=== PATIENT | female | born 1960 | race Caucasian/White ===

== ENCOUNTER 2016-03-12 02:29 | Emergency (ER) | payer MEDICARE, MEDICAID ==
--- NOTE | 2016-03-12 02:53 | ERNOTE ---
Dyspnea - General Presenting Symptoms: shortness of breath Time Seen by Provider: 03/12/16 02:30 Source: patient Exam Limitations: intoxication - Immun/Allergies/Home Medications Immunizations: IMMUNIZATION HX Immunizations Up to Date Yes History of Influenza Vaccine No Hx Pneumococcal Vaccination Yes Allergies/Adverse Reactions: Allergies Iodinated Contrast Media - IV Dye Allergy (Intermediate, Verified 02/16/16 17:19 ) blood clots phenobarbital Allergy (Intermediate, Verified 02/16/16 17:19) seizure amoxicillin trihydrate [From Augmentin] Adverse Reaction (Mild, Verified 17:19) Vomiting egg Adverse Reaction (Mild, Verified 02/16/16 17:19) runny nose ibuprofen Adverse Reaction (Mild, Verified 02/16/16 17:19) Vomiting potassium clavulanate [From Augmentin] Adverse Reaction (Mild, Verified 17:19) Vomiting promethazine HCl [From Phenergan] Adverse Reaction (Mild, Verified 02/16/16 17: 19) Vomiting Home Medications: HOME MEDICATIONS ALPRAZolam [Xanax] 1 mg PO TID PRN 04/30/15 [Last Taken Unknown] Albuterol Sulfate [Proair Hfa] 2 puff IH QID PRN #1 inhaler 04/30/15 [Last Taken Unknown] Albuterol Sulfate/Ipratropium [Duoneb 2.5-0.5MG/3ML Soln] 3 ml IH QID PRN #60 nebu 04/30/15 [Last Taken Unknown] Cyproheptadine HCl [Periactin] 4 mg PO BID 02/16/16 [Last Taken Unknown] Hydrocodone/Acetaminophen [Lortab 5-325 mg Tablet] 1 - 2 each PO QID PRN #20 tablet 02/16/16 [Last Taken Unknown] Vitamin B Complex 1 each PO DAILY 02/16/16 [Last Taken Unknown] diphenhydrAMINE HCL [Benadryl] 25 mg PO TID PRN 02/16/16 [Last Taken Unknown] Benzonatate [Tessalon] 200 mg PO TID PRN 03/12/16 [Last Taken Unknown] Levetiracetam [Keppra] 1,000 mg PO BID 03/12/16 [Last Taken Unknown] Ondansetron [Zofran Odt] 4 mg PO Q6H PRN 03/12/16 [Last Taken Unknown] Prednisone [Deltasone] 20 mg PO DAILY 03/12/16 [Last Taken Unknown] - History of Present Illness Narrative: Patient complaints of shortness of breath for two days, has difficulty giving more of a story or focusing on questions as she is obviously drunk, admits to 4- 6 beer. She states that she has had this pain on and off for a while, has had multiple ER visits, has diagnosis of anxiety as well as COPD, recent chest CT did not show a PE or other acute disease. She has been using her inhaler at home with moderate relieve Date (Duration): 03/10/16 Initiating event: Denies: upper resp illness, out of meds Frequency of episodes: Reports: occassional episodes Associated Symptoms-Dyspnea: Reports: chest pain/discomfort - left chest on and off for a while, worse with breathing. Denies: fever/chills Prior Treatment: Reports: recently seen. Denies: currently on antibiotics Review of Systems - Review of Systems Constitutional: Present: recent illness. Absent: fever ENT: Absent: nose congestion Respiratory: Present: See HPI, shortness of breath, cough Cardiology: Present: See HPI, chest pain Gastrointestinal/Abdominal: Absent: nausea, vomiting, abdominal pain Neurological: Absent: headache - Patient's Past Medical History Patient History - Medical: Alcohol Abuse, Anxiety, GERD, Hypothyroidism, Osteoarthritis, Seizures Patient History - Cardiac/Respiratory: COPD Patient History - Cancer: No Hx of Cancer Patient History - Surgical Procedures: Cholecystectomy, , Other - Family History Mother Family History - Medical: Father Family History - Medical: Family History - Cardiac/Respiratory: Hypertension - Social History Living Situations: home Smoking Status: Current every day smoker Patient requests Smoking Cessation Consult: No Initiate information on Smoking Cessation: No Alcohol Use: heavy Drug Use: benzodiazepine Physical Exam - Physical Exam General Appearance: Present: wd/wn, anxious, other - intoxicated Eye Exam: Normal inspection: bilateral Ears, Nose, Throat: Present: normal pharynx Neck: Present: normal inspection. Absent: lymphadenopathy (R), lymphadenopathy (L) Respiratory: Present: no respiratory distress, decreased breath sounds, expiration (prolonged), wheezing - left lower chest Cardiovascular/Chest: Present: regular rate, rhythm, no murmur Gastrointestinal/Abdominal: Present: nontender, nondistended, soft Skin Exam: Present: normal color, warm/dry ED Progress - Results and Orders Patient's Lab Results:: I have reviewed the patient's lab results. - Vital Signs Patient's Vital Signs:: I have reviewed the patient's vital signs. Vital Signs: Vital Signs 03/12/16 03/12/16 02:31 02:41 Temperature 36.2 C L Pulse Rate 99 90 Respiratory 18 20 Rate Blood Pressure 143/98 107/68 O2 Sat by Pulse 93 93 Oximetry - EKG EKG: NSR, nonspecific ST T wave changes - inferior leads similar to 02/22/16 EKG read: Interp. by me - X-Ray X-Ray #1 X-Ray: chest - chronic no acute changes Interpretation: Interp. by me - Progress/Reassessment Chief Complaint: Dyspnea Progress Note-Subjective: 03/12/16 03:28 wheezing still present after neb treatment, patient is asking for food and drink alternating between breathing comfortably and getting agitated and breathing faster 03/12/16 03:53 discussed results with patient she was given prescription for prednisone on february 21 (#10) and only three tablets are mission, patient took one dose of her own prednisone (40mg) here, discussed cutting down on her smoking and drinking Departure Clinical Impression: COPD (chronic obstructive pulmonary disease) Qualifiers: COPD type: unspecified COPD Qualified Code(s): J44.9 - Chronic obstructive pulmonary disease, unspecified - Departure Disposition: Home self-care Condition: Fair Instructions: Chronic Obstructive Pulmonary Disease, [id number] Additional Instructions: take your prednisone as instructed ( you already took the dose for Thursday here in the ER) call Dr Otto to see if you can get an earlier follow up appointment work on cutting down on your smoking and alcohol intake Referrals: Cesia Otto DO [Primary Care Provider] -
[2016-03-12 02:57] LABS: Hematocrit 45.1 % (37.0-47.0); Hemoglobin 15.6 gm/dL (12.5-16.0); Mean Cell Volume 103.2 fl (78-100); Mean Corpuscular Hemoglobin 35.7 pg (27-31); Mean Corpuscular Hgb Conc 34.6 g/dl (32-36); Mean Platelet Volume 8.9 fl (6.0-9.5); Neutrophil # 4.6 K/mm3 (1.3-6.0); Neutrophil % 83.6 % (42-75.0); Platelet Count 237 K/mm3 (150-450); Red Blood Count 4.37 M/mm3 (4.2-5.4); Red Cell Distribution Width 12.8 % (11.5-14.0); White Blood Count 5.5 K/mm3 (4.0-10.5)
[2016-03-12] MEDS ORDERED: ALBUTEROL SULFATE 2.5 MG/0.5 ML VIAL.NEB IH ONE ×2 (03:00)
[2016-03-12 03:30] LABS: Albumin * 3.4 gm/dl (3.4-5.0); Anion Gap 14.5 mmol/L (6.8-13.8); BUN/Creatinine Ratio 11.3 (9.0-21.6); Blood Urea Nitrogen 7 mg/dL (3-23); Ca. Corrected For Albumin 8.9 mg/dL (8.4-10.2); Calcium * 8.7 mg/dL (7.9-10.9); Carbon Dioxide 21.5 mmol/L (24-32.6); Chloride 101 mmol/L (97-106); Glucose * 147 mg/dL (70-110); Sodium 133 mmol/L (132-142); Total Protein 7.6 gm/dL (6.2-8.2)
[2016-03-12 03:31] LABS: ALT 61 U/L (19-67); AST 96 U/L (0-48); Alkaline Phosphatase * 118 U/L (50-170); Bilirubin, Total 0.6 mg/dL (0.0-1.1); Troponin I Less than 0.017 ng/ml (0.00-0.10)
[2016-03-12 04:10] VITALS: BP 108/71
== END 2016-03-12 03:55 | disposition home or self-care (01) ==
LOC: ER 02:29
DX: J44.9 Chronic obstructive pulmonary disease, unspecified (principal); F41.9 Anxiety disorder, unspecified; R56.9 Unspecified convulsions
CPT/HCPCS: 36415; 71010; 80053; 84484; 85025; 93005; 99284; G0481

== ENCOUNTER 2016-05-11 00:09 | Emergency (ER) | payer MEDICARE, MEDICAID ==
[2016-05-11] MEDS ORDERED: LORazepam 2 MG/ML DISP.SYRIN IV ONE (00:31)
--- NOTE | 2016-05-11 00:39 | ERNOTE ---
Chest Pain/Cardiac HPI Date of Service: 05/11/16 Chief Complaint: Chest Pain Source: patient, EMR Immunizations: IMMUNIZATION HX Immunizations Up to Date Yes History of Influenza Vaccine No Hx Pneumococcal Vaccination Yes Allergies/Adverse Reactions: Allergies Iodinated Contrast Media - Oral and [Iodinated Contrast Media - IV Dye] Allergy (Intermediate, Verified 02/16/16 17:19) blood clots phenobarbital Allergy (Intermediate, Verified 02/16/16 17:19) seizure amoxicillin trihydrate [From Augmentin] Adverse Reaction (Mild, Verified 17:19) Vomiting egg Adverse Reaction (Mild, Verified 02/16/16 17:19) runny nose ibuprofen Adverse Reaction (Mild, Verified 02/16/16 17:19) Vomiting potassium clavulanate [From Augmentin] Adverse Reaction (Mild, Verified 17:19) Vomiting promethazine HCl [From Phenergan] Adverse Reaction (Mild, Verified 02/16/16 17: 19) Vomiting Home Medications: HOME MEDICATIONS ALPRAZolam [Xanax] 1 mg PO TID PRN 04/30/15 [Last Taken Unknown] Albuterol Sulfate [Proair Hfa] 2 puff IH QID PRN #1 inhaler 04/30/15 [Last Taken Unknown] Albuterol Sulfate/Ipratropium [Duoneb 2.5-0.5MG/3ML Soln] 3 ml IH QID PRN #60 nebu 04/30/15 [Last Taken Unknown] HYDROcodone/ACETAMINOPHEN [Lortab 5-325 mg Tablet] 1 - 2 each PO QID PRN #20 tablet 02/16/16 [Last Taken Unknown] Vitamin B Complex 1 each PO DAILY 02/16/16 [Last Taken Unknown] diphenhydrAMINE HCL [Benadryl] 25 mg PO TID PRN 02/16/16 [Last Taken Unknown] levETIRAcetam [Keppra] 1,000 mg PO BID 03/12/16 [Last Taken Unknown] Narrative: 56-year-old female known alcoholic with anxiety and panic disorder states that she felt short of breath and had some pain on the right side of her chest panicked and called for an ambulance. This is one of multiple admissions to our emergency department for the same reasons. Patient is intoxicated states she's had 4 or 5 beers. She is crying and yelling out and initially refusing all treatment. She did calm down enough for us to initiate treatment. We'll do the standard workup and give her some lorazepam to calm her down and likely be sending her back home soon Timing: intermittent Severity/Quality: moderate Location: other - right side Chest Pain Radiation: arms - right arm only Activities at Onset: emotional stress, other - drinking Modifying Factors - Improves: Present: nothing Modifying Factors - Worsens: Present: nothing Aspirin Treatment Today: unknown Associated Symptoms: Present: other - anxiety Prior Chest Pain/Cardiac Workup: Reports: prior chest pain, non-cardiac Prior Treatment: Reports: recently seen Review of Systems - Review of Systems Constitutional: Present: See HPI EYE: Present: no symptoms reported ENT: Present: no symptoms reported Respiratory: Present: no symptoms reported Cardiology: Present: no symptoms reported Gastrointestinal/Abdominal: Present: no symptoms reported Genitourinary: Present: no symptoms reported Musculoskeletal: Present: no symptoms reported Skin: Present: no symptoms reported Neurological: Present: no symptoms reported Endocrine: Present: no symptoms reported Hematologic/Lymphatic: Present: no symptoms reported Psych: Present: See HPI - Patient's Past Medical History Patient History - Medical: Alcohol Abuse, Anxiety, GERD, Hypothyroidism, Osteoarthritis, Seizures Patient History - Cardiac/Respiratory: Asthma, Hypertension Patient History - Cancer: No Hx of Cancer Patient History - Surgical Procedures: Cholecystectomy, , Other Patient History - Other: None - Family History Mother Family History - Medical: Father Family History - Medical: Family History - Cardiac/Respiratory: Hypertension - Social History Living Situations: alone Abuse History: No History of abuse Psych History: No pertinent hx Smoking Status: Current every day smoker Alcohol Use: heavy Drug Use: benzodiazepine - Immunizations Immunizations Up to Date: Yes Hx Pneumococcal Vaccination: Yes History of Influenza Vaccine: No Physical Exam - Physical Exam General Appearance: Present: moderate distress, anxious, crying, other - intoxicated Eye Exam: Normal inspection: bilateral, PERRL: bilateral Ears, Nose, Throat: Present: normal ENT inspection, H, normal pharynx Respiratory: Present: no respiratory distress, normal breath sounds, no accessory muscle use, chest nontender, lungs clear Cardiovascular/Chest: Present: regular rate, rhythm, no murmur, normal peripheral pulses Gastrointestinal/Abdominal: Present: normal bowel sounds, nontender, nondistended, soft, no organomegaly Rectal Exam: Present: deferred Back Exam: Present: normal inspection, normal range of motion, no CVA tenderness , no vertebral tenderness Extremity Exam: Present: normal inspection, non-tender, no edema, normal range of motion Neurological Exam: Present: alert, oriented, other - anxious, yelling out, crying, initially uncooperative Skin Exam: Present: normal color, warm/dry Lymphatic Exam: Present: no adenopathy ED Progress - Results and Orders Patient's Lab Results:: I have reviewed the patient's lab results. - Vital Signs Patient's Vital Signs:: I have reviewed the patient's vital signs. Vital Signs: Vital Signs 05/11/16 00:19 Temperature 36.7 C Pulse Rate 91 Respiratory 20 Rate Blood Pressure 131/88 O2 Sat by Pulse 92 Oximetry - EKG EKG: NSR, no ST T wave changes - Progress/Reassessment Chief Complaint: Chest Pain Departure - Departure Clinical Impression: Panic attack, Anxiety, Alcoholism COPD (chronic obstructive pulmonary disease) Qualifiers: COPD type: unspecified COPD Qualified Code(s): J44.9 - Chronic obstructive pulmonary disease, unspecified Disposition: Home self-care Condition: Fair Instructions: Panic Attacks, [id number] Additional Instructions: Take your Regular medications and try to stop drinking and smoking
[2016-05-11 00:48] LABS: Hematocrit 45.2 % (37.0-47.0); Hemoglobin 15.5 gm/dL (12.5-16.0); Mean Cell Volume 103.4 fl (78-100); Mean Corpuscular Hemoglobin 35.5 pg (27-31); Mean Corpuscular Hgb Conc 34.3 g/dl (32-36); Neutrophil # 1.6 K/mm3 (1.3-6.0); Neutrophil % 23.5 % (42-75.0); Platelet Count 212 K/mm3 (150-450); Red Blood Count 4.37 M/mm3 (4.2-5.4); White Blood Count 6.8 K/mm3 (4.0-10.5)
[2016-05-11 01:03] LABS: ALT 82 U/L (19-67); AST 116 U/L (0-48); Albumin * 3.2 gm/dl (3.4-5.0); Alkaline Phosphatase * 112 U/L (50-170); Anion Gap 16.7 mmol/L (6.8-13.8); BUN/Creatinine Ratio 6.8 (9.0-21.6); Bilirubin, Total 0.4 mg/dL (0.0-1.1); Blood Urea Nitrogen 4 mg/dL (3-23); Ca. Corrected For Albumin 8.4 mg/dL (8.4-10.2); Calcium * 8.1 mg/dL (7.9-10.9); Carbon Dioxide 23.7 mmol/L (24-32.6); Chloride 103 mmol/L (97-106); Glucose * 110 mg/dL (70-110); Potassium 3.4 mmol/L (3.4-4.6); Sodium 140 mmol/L (132-142); Total Protein 7.1 gm/dL (6.2-8.2); Troponin I Less than 0.017 ng/ml (0.00-0.10)
[2016-05-11] MEDS ORDERED: LORazepam 2 MG/ML DISP.SYRIN ONE (01:05)
[2016-05-11 01:16] VITALS: BP 103/73
== END 2016-05-11 01:50 | disposition home or self-care (01) ==
LOC: ER 00:09
DX: J44.9 Chronic obstructive pulmonary disease, unspecified (principal); F41.0 Panic disorder [episodic paroxysmal anxiety]; F41.9 Anxiety disorder, unspecified; F17.210 Nicotine dependence, cigarettes, uncomplicated; F10.20 Alcohol dependence, uncomplicated

== ENCOUNTER 2016-05-25 12:36 | Emergency (ER) | payer MEDICARE, MEDICAID ==
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
[2016-05-25 13:31] VITALS: BP 148/102
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
== END 2016-05-25 14:17 | disposition home or self-care (01) ==
LOC: ER 12:36
DX: R07.89 Other chest pain (principal); G40.409 Other generalized epilepsy and epileptic syndromes, not intractable, without status epilepticus; J45.909 Unspecified asthma, uncomplicated; F41.9 Anxiety disorder, unspecified

== ENCOUNTER 2016-06-04 01:17 | Emergency (ER) | payer MEDICARE, MEDICAID ==
[2016-06-04 01:32] VITALS: BP 138/88
[2016-06-04] MEDS ORDERED: ACETAMINOPHEN 500 MG TABLET PO ONE (01:42)
[2016-06-04] MEDS ORDERED: KETOROLAC TROMETHAMINE 30 MG/ML VIAL IM ONE (01:42)
[2016-06-04] MEDS ORDERED: KETOROLAC TROMETHAMINE 30 MG/ML VIAL ONE (01:47)
--- NOTE | 2016-06-04 01:51 | ERNOTE ---
Back Pain ER HPI Date of Service: 06/04/16 Presenting Symptoms: injury/pain to back Source: patient Immunizations: IMMUNIZATION HX Immunizations Up to Date Yes History of Influenza Vaccine No Hx Pneumococcal Vaccination Yes Allergies/Adverse Reactions: Allergies Iodinated Contrast Media - Oral and [Iodinated Contrast Media - IV Dye] Allergy (Intermediate, Verified 05/25/16 13:01) blood clots phenobarbital Allergy (Intermediate, Verified 05/25/16 13:01) seizure amoxicillin trihydrate [From Augmentin] Adverse Reaction (Mild, Verified 13:01) Vomiting egg Adverse Reaction (Mild, Verified 05/25/16 13:01) runny nose ibuprofen Adverse Reaction (Mild, Verified 05/25/16 13:01) Vomiting potassium clavulanate [From Augmentin] Adverse Reaction (Mild, Verified 13:01) Vomiting promethazine HCl [From Phenergan] Adverse Reaction (Mild, Verified 05/25/16 13: 01) Vomiting Home Medications: HOME MEDICATIONS ALPRAZolam [Xanax] 1 mg PO TID PRN 04/30/15 [Last Taken Unknown] Albuterol Sulfate [Proair Hfa] 2 puff IH QID PRN #1 inhaler 04/30/15 [Last Taken Unknown] Albuterol Sulfate/Ipratropium [Duoneb 2.5-0.5MG/3ML Soln] 3 ml IH QID PRN #60 nebu 04/30/15 [Last Taken Unknown] diphenhydrAMINE HCL [Benadryl] 25 mg PO TID PRN 02/16/16 [Last Taken Unknown] levETIRAcetam [Keppra] 1,000 mg PO BID 03/12/16 [Last Taken Unknown] Cyclobenzaprine HCl [Flexeril] 10 mg PO TID PRN #30 tab 05/25/16 [Last Taken Unknown] traMADol HCL [Ultram] 50 mg PO QID PRN #20 tablet 05/25/16 [Last Taken Unknown] Gabapentin 300 mg PO TID PRN #21 capsule 06/04/16 [Last Taken Unknown] Lidocaine [Lidoderm 5%] 1 patch TP DAILY PRN #20 patch 06/04/16 [Last Taken Unknown] Narrative: 56 year old that had an acute onset of lower thoracic pain three days ago. Movement increases the pain, lying on her side decreases the pain. She becomes short of breath when the pain spikes after movement. However she is not currently short of breath. Denies any motor or sensory deficits in the lower extremities. Denies any urinary retention. One week ago she fell after drinking alcohol. Ultram and Tylenol are not decreasing the pain. Timing: Reports: intermittent Quality/Severity: Reports: severe Location of pain: Reports: lower back Activities at Onset: Reports: none Recent Injury?: Reports: yes Possible Precipitating Factor: Reports: fall/near fall Modifying Factors - (Improves): Reports: other - being still Modifying Factors - (Worsens): Reports: movement to right, movement to left, movement flexion Associated Symptoms: Reports: none Prior Treament: Reports: recently seen Review of Systems - Review of Systems Constitutional: Present: no symptoms reported EYE: Present: no symptoms reported ENT: Present: no symptoms reported Respiratory: Present: no symptoms reported Cardiology: Present: no symptoms reported Gastrointestinal/Abdominal: Present: no symptoms reported Genitourinary: Present: no symptoms reported Musculoskeletal: Present: See HPI Skin: Present: no symptoms reported Neurological: Present: no symptoms reported Endocrine: Present: no symptoms reported Hematologic/Lymphatic: Present: no symptoms reported Psych: Present: no symptoms reported - Patient's Past Medical History Patient History - Medical: Alcohol Abuse, Anxiety, GERD, Hypothyroidism, Osteoarthritis, Seizures Patient History - Cardiac/Respiratory: Asthma, Hypertension Patient History - Cancer: No Hx of Cancer Patient History - Surgical Procedures: Cholecystectomy, , Other Patient History - Other: None - Family History Mother Family History - Medical: Father Family History - Medical: Family History - Cardiac/Respiratory: Hypertension - Social History Living Situations: significant other Abuse History: No History of abuse Psych History: No pertinent hx Smoking Status: Current every day smoker Have you smoked in the past 12 months: Yes Do you dip or chew tobacco: No Alcohol Use: heavy Drug Use: benzodiazepine - Immunizations Immunizations Up to Date: Yes Hx Pneumococcal Vaccination: Yes History of Influenza Vaccine: No Physical Exam - Physical Exam General Appearance: Present: no apparent distress Eye Exam: Normal inspection: bilateral, PERRL: bilateral Ears, Nose, Throat: Present: normal ENT inspection Neck: Present: normal inspection Respiratory: Present: no respiratory distress Cardiovascular/Chest: Present: regular rate, rhythm, other - tenderness at the 12 th rib bilaterally. Gastrointestinal/Abdominal: Present: nondistended Back Exam: Present: normal inspection, no vertebral tenderness Extremity Exam: Present: normal inspection Skin Exam: Present: normal color ED Progress - Vital Signs Patient's Vital Signs:: I have reviewed the patient's vital signs. Vital Signs: Vital Signs 06/04/16 01:17 Temperature 36.7 C Pulse Rate 86 Respiratory 16 Rate Blood Pressure 138/88 O2 Sat by Pulse 98 Oximetry - X-Ray X-Ray #1 X-Ray: chest Interpretation: Interp. by me X-ray Comments: No rib fractures, no pneumothorax. - Progress/Reassessment Chief Complaint: Back Pain Progress:: Improved Departure Clinical Impression: Rib pain - Departure Disposition: Home self-care Condition: Fair Instructions: Rib Fracture, [id number], Rib Belt Print Language: Kiswahili Referrals: Cesia Otto DO [Primary Care Provider] - Prescriptions: Gabapentin 300 mg PO TID PRN #21 capsule PRN Reason: Pain Lidocaine [Lidoderm 5%] 1 patch TP DAILY PRN #20 patch PRN Reason: Pain
--- OUTSIDE RECORDS SUMMARY | 2016-06-04 02:10 | XMS REPORT | Continuity of Care Document ---
:1960 Author Organization [facility] ([facility]) Address [place] [address] Phone [phone] Care Team Providers Name Role Phone Raul Gallegos Primary Care Provider [phone] Source Comments This disclosure is being made pursuant to the Care Everywhere program, applicable federal and state laws, and may not contain all informaitonavailable regarding this patient.[facility] ([facility]) Active Allergies and Adverse Reactions Allergen Noted [...] 09/13/2014 Woman with possible epilepsy based on [place] EEG. She has a history of falls that were due to "blackouts" over the years with injury but was never given a diagnosis of epilepsy until 2013. She does well on keppra and avoiding marijuana Plan 1. Reviewed [place] Law that she needs to go 6 months without a seizure or alteration of awareness 2. I have sent [facility] EEG on disc, MRI on disc and ED notes 3. Life style: Get enough sleep, limit alcohol use, avoid marijuana If you have questions please call us: Department of Neurology Epilepsy Program(8:00 a.m. to 5:00 p.m. Thursday-Thursday) at [phone] After 5:00 p.m., weekends or holidays, call [phone] and ask for the Neurologist manager of environmental services. 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
[2016-06-04 02:52] LABS: Urine Bilirubin Negative (NEGATIVE); Urine Blood Negative /ul (NEGATIVE); Urine Ketone Negative (NEGATIVE); Urine Nitrite Negative (NEGATIVE); Urine Protein Negative (NEGATIVE); Urine Specific Gravity <=1.005 SP.GR. (1.005-1.010); Urine Urobilinogen Normal (NORMAL); Urine pH 5.5 pH (5.0-7.0)
[2016-06-04 02:56] LABS: Urine Amorphous Sediment Few - 1+ (NONE-FEW); Urine Appearance Slightly Cloudy; Urine Bacteria None Seen; Urine Color Pale Yellow; Urine Mucus Few - 1+; Urine RBC 0-5 /hpf (0-5); Urine WBC 0-5 /hpf (0-5)
[2016-06-04] MEDS ORDERED: LIDOCAINE 1 PATCH ADH..PATCH TP ONE ×2 (03:18→03:30)
== END 2016-06-04 03:38 | disposition home or self-care (01) ==
LOC: ER 01:17
DX: R07.81 Pleurodynia (principal); F17.210 Nicotine dependence, cigarettes, uncomplicated

== ENCOUNTER 2016-06-06 03:41 | Emergency (ER) | payer MEDICARE, MEDICAID ==
--- OUTSIDE RECORDS SUMMARY | 2016-06-06 04:15 | XMS REPORT | Continuity of Care Document ---
:1960 Author Organization [facility] ([facility]) [place] [address] Phone [phone] Care Team Providers Name Role Phone Raul Gallegos Primary Care Provider [phone] Source Comments This disclosure is being made pursuant to the Care Everywhere program, applicable federal and state laws, and may not contain all informaitonavailable regarding this patient.[facility] ([facility]) Active Allergies and Adverse Reactions Allergen [...] 09/13/2014 Woman with possible epilepsy based on [place] EEG. She has a history of falls that were due to "blackouts" over the years with injury but was never given a diagnosis of epilepsy until 2013. She does well on keppra and avoiding marijuana Plan 1. Reviewed [place] Law that she needs to go 6 months without a seizure or alteration of awareness 2. I have sent [facility] EEG on disc, MRI on disc and ED notes 3. Life style: Get enough sleep, limit alcohol use, avoid marijuana If you have questions please call us: Department of Neurology Epilepsy Program(8:00 a.m. to 5:00 p.m. Thursday-Thursday) at [phone] After 5:00 p.m., weekends or holidays, call [phone] and ask for the Neurologist press set up person. 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
--- NOTE | 2016-06-06 04:20 | ERNOTE ---
Back Pain ER HPI Presenting Symptoms: injury/pain to back Time Seen by Provider: 06/06/16 03:56 Source: patient Exam Limitations: no limitations Immunizations: IMMUNIZATION HX Immunizations Up to Date Yes History of Influenza Vaccine No Hx Pneumococcal Vaccination Yes Allergies/Adverse Reactions: Allergies Iodinated Contrast Media - Oral and [Iodinated Contrast Media - IV Dye] Allergy (Intermediate, Verified 05/25/16 13:01) blood clots phenobarbital Allergy (Intermediate, Verified 05/25/16 13:01) seizure amoxicillin trihydrate [From Augmentin] Adverse Reaction (Mild, Verified 13:01) Vomiting egg Adverse Reaction (Mild, Verified 05/25/16 13:01) runny nose ibuprofen Adverse Reaction (Mild, Verified 05/25/16 13:01) Vomiting potassium clavulanate [From Augmentin] Adverse Reaction (Mild, Verified 13:01) Vomiting promethazine HCl [From Phenergan] Adverse Reaction (Mild, Verified 05/25/16 13: 01) Vomiting Home Medications: HOME MEDICATIONS ALPRAZolam [Xanax] 1 mg PO TID PRN 04/30/15 [Last Taken Unknown] Albuterol Sulfate [Proair Hfa] 2 puff IH QID PRN #1 inhaler 04/30/15 [Last Taken Unknown] Albuterol Sulfate/Ipratropium [Duoneb 2.5-0.5MG/3ML Soln] 3 ml IH QID PRN #60 nebu 04/30/15 [Last Taken Unknown] diphenhydrAMINE HCL [Benadryl] 25 mg PO TID PRN 02/16/16 [Last Taken Unknown] levETIRAcetam [Keppra] 1,000 mg PO BID 03/12/16 [Last Taken Unknown] Cyclobenzaprine HCl [Flexeril] 10 mg PO TID PRN #30 tab 05/25/16 [Last Taken Unknown] Gabapentin 300 mg PO TID PRN #21 capsule 06/04/16 [Last Taken Unknown] Lidocaine [Lidoderm 5%] 1 patch TP DAILY PRN #20 patch 06/04/16 [Last Taken Unknown] Meloxicam [Mobic] 7.5 mg PO DAILY #14 tab 06/06/16 [Last Taken Unknown] tiZANidine HCL [Zanaflex] 4 mg PO QID PRN #30 capsule 06/06/16 [Last Taken Unknown] Narrative: Pt fell and hurt her ribs 2 weeks ago. She was having more pain and was seen in this ED 2 days ago. She was given gabapentin and lidocaine patches. She states the medications aren't working and her back is hurting more. Timing: Reports: getting worse Quality/Severity: Reports: moderate Location of pain: Reports: mid back Recent Injury?: Reports: yes Possible Precipitating Factor: Reports: fall/near fall Modifying Factors - (Improves): Reports: nothing Modifying Factors - (Worsens): Reports: supine position Prior Treament: Reports: recently seen, treated by physician, similar symptoms before Review of Systems - Review of Systems Constitutional: Present: no symptoms reported EYE: Present: no symptoms reported ENT: Present: no symptoms reported Respiratory: Present: shortness of breath - when the pain increases Cardiology: Present: no symptoms reported Gastrointestinal/Abdominal: Present: no symptoms reported Genitourinary: Present: no symptoms reported Musculoskeletal: Present: See HPI, back pain, muscle pain Skin: Present: no symptoms reported Neurological: Absent: numbness, tingling Endocrine: Present: no symptoms reported Hematologic/Lymphatic: Present: no symptoms reported Psych: Present: no symptoms reported - Patient's Past Medical History Patient History - Medical: Alcohol Abuse, Anxiety, GERD, Hypothyroidism, Osteoarthritis, Seizures Patient History - Cardiac/Respiratory: Asthma, Hypertension Patient History - Cancer: No Hx of Cancer Patient History - Surgical Procedures: Cholecystectomy, , Other Patient History - Other: None - Family History Mother Family History - Medical: Father Family History - Medical: Family History - Cardiac/Respiratory: Hypertension - Social History Living Situations: significant other Abuse History: No History of abuse Psych History: No pertinent hx Smoking Status: Current every day smoker Patient requests Smoking Cessation Consult: No Initiate information on Smoking Cessation: No Alcohol Use: heavy Drug Use: benzodiazepine - Immunizations Immunizations Up to Date: Yes Hx Pneumococcal Vaccination: Yes History of Influenza Vaccine: No Physical Exam - Physical Exam General Appearance: Present: wd/wn, alert, mild distress Eye Exam: Normal inspection: bilateral Neck: Present: normal inspection, nontender, supple, full range of motion Respiratory: Present: no respiratory distress Back Exam: Present: no CVA tenderness, no vertebral tenderness, muscle spasm - bilateral quadratus lumborum Extremity Exam: Present: normal inspection, normal range of motion Neurological Exam: Present: alert, oriented Skin Exam: Present: normal color, warm/dry Lymphatic Exam: Present: no adenopathy ED Progress - Vital Signs Vital Signs: Vital Signs 06/06/16 03:45 Temperature 36.4 C L Pulse Rate 92 Respiratory 18 Rate Blood Pressure 137/98 O2 Sat by Pulse 91 Oximetry - Progress/Reassessment Chief Complaint: Back Pain Departure Clinical Impression: Rib pain, Muscle spasm of back - Departure Disposition: Home self-care Condition: Good Instructions: Muscle Cramps and Spasms, Rib Contusion Additional Instructions: Stop the tramadol. Use warm packs to painful areas 15 minutes 3-4 times a day. fill the prescription for the patches. May use one patch cut in half or two patches if needed to cover the painful area. wear for 12 hours a day and remove apply new patches the next day. See your regular doctor if not improving Referrals: Cesia Otto DO [Primary Care Provider] - Prescriptions: Meloxicam [Mobic] 7.5 mg PO DAILY #14 tab tiZANidine HCL [Zanaflex] 4 mg PO QID PRN #30 capsule PRN Reason: Muscle Pain
[2016-06-06] MEDS ORDERED: ORPHENADRINE CITRATE 30 MG/ML VIAL IM ONE (04:39)
[2016-06-06] MEDS ORDERED: KETOROLAC TROMETHAMINE 60 MG/2 ML VIAL IM ONE (04:43)
[2016-06-06] MEDS ORDERED: ORPHENADRINE CITRATE 30 MG/ML VIAL ONE (04:43)
[2016-06-06] MEDS: KETOROLAC TROMETHAMINE 60 MG/2 ML VIAL IM ONE ×2 (04:44→04:45)
[2016-06-06] MEDS ORDERED: LIDOCAINE 1 PATCH ADH..PATCH TP ONE (05:00)
[2016-06-06 06:02] VITALS: BP 118/84
== END 2016-06-06 05:15 | disposition home or self-care (01) ==
LOC: ER 03:41
DX: R07.81 Pleurodynia (principal); M62.830 Muscle spasm of back; F17.200 Nicotine dependence, unspecified, uncomplicated; W19.XXXA Unspecified fall, initial encounter

== ENCOUNTER 2016-06-10 00:21 | Emergency (ER) | payer MEDICARE, MEDICAID ==
[2016-06-10 00:31] VITALS: BP 143/99
[2016-06-10] MEDS ORDERED: ALBUTEROL SULFATE/IPRATROPIUM 3 ML NEBU IH ONE ×2 (00:39)
[2016-06-10 01:05] LABS: Hematocrit 50.2 % (37.0-47.0); Hemoglobin 17.3 gm/dL (12.5-16.0); Mean Cell Volume 103.7 fl (78-100); Mean Corpuscular Hemoglobin 35.7 pg (27-31); Mean Corpuscular Hgb Conc 34.5 g/dl (32-36); Mean Platelet Volume 9.1 fl (6.0-9.5); Neutrophil # 4.4 K/mm3 (1.3-6.0); Neutrophil % 44.9 % (42-75.0); Platelet Count 313 K/mm3 (150-450); Red Blood Count 4.84 M/mm3 (4.2-5.4); Red Cell Distribution Width 12.6 % (11.5-14.0); White Blood Count 9.8 K/mm3 (4.0-10.5)
[2016-06-10 01:25] LABS: ALT 59 U/L (19-67); AST 78 U/L (0-48); Albumin * 3.7 gm/dl (3.4-5.0); Alkaline Phosphatase * 156 U/L (50-170); Anion Gap 20.1 mmol/L (6.8-13.8); BUN/Creatinine Ratio 7.8 (9.0-21.6); Bilirubin, Total 0.4 mg/dL (0.0-1.1); Blood Urea Nitrogen 5 mg/dL (3-23); Ca. Corrected For Albumin 9.1 mg/dL (8.4-10.2); Calcium * 9.2 mg/dL (7.9-10.9); Carbon Dioxide 22.8 mmol/L (24-32.6); Chloride 104 mmol/L (97-106); Glucose * 98 mg/dL (70-110); Potassium 3.9 mmol/L (3.4-4.6); Sodium 143 mmol/L (132-142); Troponin I Less than 0.017 ng/ml (0.00-0.10)
--- OUTSIDE RECORDS SUMMARY | 2016-06-10 01:43 | XMS REPORT | Continuity of Care Document ---
:1960 Author Organization [facility] ([facility]) Address [place] [address] Phone [phone] Care Team Providers Name Role Phone Raul Gallegos Primary Care Provider [phone] Source Comments This disclosure is being made pursuant to the Care Everywhere program, applicable federal and state laws, and may not contain all informaitonavailable regarding this patient.[facility] ([facility]) Active Allergies and Adverse Reactions Allergen Noted [...] 09/13/2014 Woman with possible epilepsy based on [place] EEG. She has a history of falls that were due to "blackouts" over the years with injury but was never given a diagnosis of epilepsy until 2013. She does well on keppra and avoiding marijuana Plan 1. Reviewed [place] Law that she needs to go 6 months without a seizure or alteration of awareness 2. I have sent [facility] EEG on disc, MRI on disc and ED notes 3. Life style: Get enough sleep, limit alcohol use, avoid marijuana If you have questions please call us: Department of Neurology Epilepsy Program(8:00 a.m. to 5:00 p.m. Thursday-Thursday) at [phone] After 5:00 p.m., weekends or holidays, call [phone] and ask for the Neurologist aboriginal education teacher. You may also use the 24 hour [...] 37.7 C (99.9 F) 03/03/2013 12:36 PM PARA OPERATOR Respiratory Rate 16 02/14/2013 5:35 PM PARA OPERATOR Height 1.6 m (5' 3") 09/13/2014 12:58 PM CDT Weight 73.483 kg (162 lb) 09/13/2014 12:58 PM CDT Body Mass Index 28.7 09/13/2014 12:58 PM CDT Oxygen Saturation 94% 02/14/2013 4:00 PM PARA OPERATOR Plan of Care Patient Goal Type Goal [...]
[2016-06-10] MEDS ORDERED: ORPHENADRINE CITRATE 30 MG/ML VIAL IM ONE (01:45)
--- NOTE | 2016-06-10 01:50 | ERNOTE ---
Dyspnea - General Presenting Symptoms: shortness of breath Time Seen by Provider: 06/10/16 01:26 Source: patient Exam Limitations: no limitations - Immun/Allergies/Home Medications Immunizations: IMMUNIZATION HX Immunizations Up to Date Yes History of Influenza Vaccine No Hx Pneumococcal Vaccination No Allergies/Adverse Reactions: Allergies Iodinated Contrast Media - Oral and [Iodinated Contrast Media - IV Dye] Allergy (Intermediate, Verified 06/10/16 00:31) blood clots phenobarbital Allergy (Intermediate, Verified 06/10/16 00:31) seizure amoxicillin trihydrate [From Augmentin] Adverse Reaction (Mild, Verified 00:31) Vomiting egg Adverse Reaction (Mild, Verified 06/10/16 00:31) runny nose ibuprofen Adverse Reaction (Mild, Verified 06/10/16 00:31) Vomiting potassium clavulanate [From Augmentin] Adverse Reaction (Mild, Verified 00:31) Vomiting promethazine HCl [From Phenergan] Adverse Reaction (Mild, Verified 06/10/16 00: 31) Vomiting Home Medications: HOME MEDICATIONS ALPRAZolam [Xanax] 1 mg PO TID PRN 04/30/15 [Last Taken Unknown] Albuterol Sulfate [Proair Hfa] 2 puff IH QID PRN #1 inhaler 04/30/15 [Last Taken Unknown] Albuterol Sulfate/Ipratropium [Duoneb 2.5-0.5MG/3ML Soln] 3 ml IH QID PRN #60 nebu 04/30/15 [Last Taken Unknown] diphenhydrAMINE HCL [Benadryl] 25 mg PO TID PRN 02/16/16 [Last Taken Unknown] levETIRAcetam [Keppra] 1,000 mg PO BID 03/12/16 [Last Taken Unknown] Gabapentin 300 mg PO TID PRN #21 capsule 06/04/16 [Last Taken Unknown] Lidocaine [Lidoderm 5%] 1 patch TP DAILY PRN #20 patch 06/04/16 [Last Taken Unknown] tiZANidine HCL [Zanaflex] 4 mg PO QID PRN #30 capsule 06/06/16 [Last Taken Unknown] Orphenadrine Citrate [Norflex] 100 mg PO Q12H #30 tablet.sa 06/10/16 [Last Taken Unknown] - History of Present Illness Narrative: Despite being short of breath pt. complains that her back pain is more of a concern to her as soon as I walk in the door to the exam room. Pt. had a fall a week ago. She has been seen in this ED twice previous to today. I saw her on Thursday night. She was given flexeril and tramadol on the first visit. On the second visit she was directed to stop those and she was given tizanadine. She did not take those today because she has been drinking heavily today. She states that she had taken a muscle relaxer previously that was BID and worked well for her. Severity: moderate Treatment DIE REPAIR: none Initiating event: Reports: other Frequency of episodes: Reports: occassional episodes Modifying Factors - (Improves): Reports: oxygen Modifying Factors (Worsens): Reports: activity, coughing Review of Systems - Review of Systems Constitutional: Present: no symptoms reported EYE: Present: no symptoms reported ENT: Present: no symptoms reported Respiratory: Present: shortness of breath, cough Cardiology: Present: no symptoms reported Gastrointestinal/Abdominal: Present: no symptoms reported Genitourinary: Present: no symptoms reported Musculoskeletal: Present: See HPI Skin: Present: no symptoms reported Neurological: Present: no symptoms reported Endocrine: Present: no symptoms reported Hematologic/Lymphatic: Present: no symptoms reported Psych: Present: no symptoms reported - Patient's Past Medical History Patient History - Medical: Alcohol Abuse, Anxiety, GERD, Hypothyroidism, Osteoarthritis, Seizures Patient History - Cardiac/Respiratory: Asthma, Hypertension Patient History - Cancer: No Hx of Cancer Patient History - Surgical Procedures: Cholecystectomy, , Other Patient History - Other: None - Family History Mother Family History - Medical: Father Family History - Medical: Family History - Cardiac/Respiratory: Hypertension - Social History Living Situations: home Abuse History: No History of abuse Psych History: No pertinent hx Smoking Status: Current every day smoker Alcohol Use: heavy Drug Use: none - Immunizations Immunizations Up to Date: Yes Hx Pneumococcal Vaccination: No History of Influenza Vaccine: No Physical Exam - Physical Exam General Appearance: Present: wd/wn, alert, mild distress Eye Exam: Normal inspection: bilateral Ears, Nose, Throat: Present: normal ENT inspection Neck: Present: normal inspection, nontender Respiratory: Present: no respiratory distress, lungs clear, decreased breath sounds Cardiovascular/Chest: Present: regular rate, rhythm, no murmur Back Exam: Present: CVA tenderness (R), CVA tenderness (L), muscle spasm Extremity Exam: Present: normal inspection, normal range of motion, no edema Neurological Exam: Present: alert, oriented Skin Exam: Present: normal color, warm/dry Lymphatic Exam: Present: no adenopathy ED Progress - Results and Orders Patient's Lab Results:: I have reviewed the patient's lab results. Results and Orders: Laboratory Tests 06/10/16 06/10/16 00:39 00:39 WBC 9.8 Hgb 17.3 H Hct 50.2 H Plt Count 313 Sodium 143 H Potassium 3.9 Chloride 104 Carbon Dioxide 22.8 L Anion Gap 20.1 H BUN 5 Creatinine 0.64 Est GFR (Non-Af Amer) 102 BUN/Creatinine Ratio 7.8 L Random Glucose 98 Calcium 9.2 Total Bilirubin 0.4 AST 78 H ALT 59 Alkaline Phosphatase 156 Troponin I Less than 0.017 Total Protein 8.0 Albumin 3.7 - Vital Signs Patient's Vital Signs:: I have reviewed the patient's vital signs. Vital Signs: Vital Signs 06/10/16 06/10/16 00:27 00:44 Temperature 36.8 C Pulse Rate 100 98 Respiratory 28 H 18 Rate Blood Pressure 143/99 O2 Sat by Pulse 85 L 90 Oximetry - EKG EKG: NSR EKG read: Interp. by me - Progress/Reassessment Chief Complaint: Dyspnea Progress Note-Subjective: 06/10/16 01:48 discussed IM norflex. Pt agreed and promised no more ETOH tonight if she was to get the injection. I encouraged her to cut down significantly on the ETOH intake if she is going to take oral norflex. She states she will drink minimally and that she see's her physician on Thursday Departure Clinical Impression: Alcoholism, COPD with exacerbation, Muscle spasm of back Back pain, thoracic Qualifiers: Chronicity: unspecified Back pain laterality: bilateral Qualified Code(s): M54.6 - Pain in thoracic spine - Departure Disposition: Home Follow Up Needed Condition: Good Instructions: Alcohol Use Disorder, Muscle Cramps and Spasms, [id number], Heat Therapy Additional Instructions: Reduce you alcohol intake while taking the muscle relaxer. See your doctor as scheduled Referrals: Cesia Otto DO [Primary Care Provider] - Prescriptions: Orphenadrine Citrate [Norflex] 100 mg PO Q12H #30 tablet.sa
[2016-06-10] MEDS ORDERED: ORPHENADRINE CITRATE 30 MG/ML VIAL ONE (01:55)
== END 2016-06-10 02:40 | disposition home or self-care (01) ==
LOC: ER 00:21
DX: F10.20 Alcohol dependence, uncomplicated (principal); J44.1 Chronic obstructive pulmonary disease with (acute) exacerbation; Z72.0 Tobacco use; M62.830 Muscle spasm of back; M54.6 Pain in thoracic spine; G40.409 Other generalized epilepsy and epileptic syndromes, not intractable, without status epilepticus; F41.8 Other specified anxiety disorders

== ENCOUNTER 2016-07-01 01:37 | Emergency (ER) | payer MEDICARE, MEDICAID ==
--- NOTE | 2016-07-01 02:10 | ERNOTE ---
ER Female HPI Stated Complaint: BLEEDING Time Seen by Provider: 07/01/16 02:06 Source: patient Exam Limitations: no limitations Immunizations: IMMUNIZATION HX Immunizations Up to Date Yes History of Influenza Vaccine No Hx Pneumococcal Vaccination No Allergies/Adverse Reactions: Allergies Iodinated Contrast Media - Oral and [Iodinated Contrast Media - IV Dye] Allergy (Intermediate, Verified 06/10/16 00:31) blood clots phenobarbital Allergy (Intermediate, Verified 06/10/16 00:31) seizure amoxicillin trihydrate [From Augmentin] Adverse Reaction (Mild, Verified 00:31) Vomiting egg Adverse Reaction (Mild, Verified 06/10/16 00:31) runny nose ibuprofen Adverse Reaction (Mild, Verified 06/10/16 00:31) Vomiting potassium clavulanate [From Augmentin] Adverse Reaction (Mild, Verified 00:31) Vomiting promethazine HCl [From Phenergan] Adverse Reaction (Mild, Verified 06/10/16 00: 31) Vomiting Home Medications: HOME MEDICATIONS ALPRAZolam [Xanax] 1 mg PO TID PRN 04/30/15 [Last Taken Unknown] Albuterol Sulfate [Proair Hfa] 2 puff IH QID PRN #1 inhaler 04/30/15 [Last Taken Unknown] Albuterol Sulfate/Ipratropium [Duoneb 2.5-0.5MG/3ML Soln] 3 ml IH QID PRN #60 nebu 04/30/15 [Last Taken Unknown] diphenhydrAMINE HCL [Benadryl] 25 mg PO TID PRN 02/16/16 [Last Taken Unknown] levETIRAcetam [Keppra] 1,000 mg PO BID 03/12/16 [Last Taken Unknown] Gabapentin 300 mg PO TID PRN #21 capsule 06/04/16 [Last Taken Unknown] - History of Present Illness Narrative: patient comes in for vaginal spotting for four days. Denies any good bleeding. Denies having any intercourse or having had anything inserted in vagina. She does not feel dizzy and she denies any abd or pelvic pain whatsoever. Denies dysuria or fevers or chills. Pt states that she used a pantiliner every day only. No reports of vaginal bleeding. Review of Systems - Review of Systems Constitutional: Present: no symptoms reported EYE: Present: no symptoms reported ENT: Present: no symptoms reported Respiratory: Present: no symptoms reported Cardiology: Present: no symptoms reported Gastrointestinal/Abdominal: Present: See HPI Genitourinary: Present: See HPI - Patient's Past Medical History Patient History - Medical: Alcohol Abuse, Anxiety, GERD, Hypothyroidism, Osteoarthritis, Seizures Patient History - Cardiac/Respiratory: Asthma, Hypertension Patient History - Cancer: No Hx of Cancer Patient History - Surgical Procedures: Cholecystectomy, , Other Patient History - Other: None - Family History Mother Family History - Medical: Father Family History - Medical: Family History - Cardiac/Respiratory: Hypertension - Social History Living Situations: home Abuse History: No History of abuse Psych History: No pertinent hx Smoking Status: Current every day smoker Patient requests Smoking Cessation Consult: No Initiate information on Smoking Cessation: No Alcohol Use: heavy Drug Use: none - Immunizations Immunizations Up to Date: Yes Hx Pneumococcal Vaccination: No History of Influenza Vaccine: No Physical Exam - Physical Exam General Appearance: Present: wd/wn, alert, other - no pallor Ears, Nose, Throat: Present: normal ENT inspection Respiratory: Present: no respiratory distress, normal breath sounds, no accessory muscle use, chest nontender, lungs clear Cardiovascular/Chest: Present: regular rate, rhythm, no murmur, normal peripheral pulses Gastrointestinal/Abdominal: Present: normal bowel sounds, nontender, nondistended Extremity Exam: Present: normal inspection Neurological Exam: Present: alert, oriented, normal mood/affect Skin Exam: Present: normal color, warm/dry Pelvic Exam: Present: other - some atrophic vaginal area noted with dried blood on labia but no lacerations, cuts, trauma or abrasion noted. ED Progress - Results and Orders Patient's Lab Results:: I have reviewed the patient's lab results. - H & H is normal. Pt is hemodynamically stable. Blood alcohol is 318, pt is drunk but has a sash maker with her. - Vital Signs Patient's Vital Signs:: I have reviewed the patient's vital signs. Vital Signs: Vital Signs 07/01/16 01:44 Temperature 36.9 C Pulse Rate 94 Respiratory 20 Rate O2 Sat by Pulse 95 Oximetry - Progress/Reassessment Chief Complaint: Genitourinary Problem Plan - Plan Plan: This case was discussed with Dr. Marcos and he asked that pt follow up with him in his clinic this week Departure Clinical Impression: Post-menopausal bleeding - Departure Disposition: Home self-care Condition: Good Instructions: Postmenopausal Bleeding, [id number] Additional Instructions: Please go see Dr. Marcos in his clinic this week Referrals: Cesia Otto DO [Primary Care Provider] -
[2016-07-01 02:24] LABS: Hemoglobin 15.6 gm/dL (12.5-16.0); Mean Cell Volume 99.8 fl (78-100); Mean Corpuscular Hemoglobin 34.6 pg (27-31); Mean Corpuscular Hgb Conc 34.7 g/dl (32-36); Mean Platelet Volume 9.3 fl (6.0-9.5); Neutrophil # 2.2 K/mm3 (1.3-6.0); Platelet Count 149 K/mm3 (150-450); Red Blood Count 4.51 M/mm3 (4.2-5.4); Red Cell Distribution Width 12.2 % (11.5-14.0); White Blood Count 4.6 K/mm3 (4.0-10.5)
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
[2016-07-01 03:25] VITALS: BP 124/86
== END 2016-07-01 03:05 | disposition home or self-care (01) ==
LOC: ER 01:37
DX: N95.0 Postmenopausal bleeding (principal); Z72.0 Tobacco use; G40.409 Other generalized epilepsy and epileptic syndromes, not intractable, without status epilepticus; F41.8 Other specified anxiety disorders
CPT/HCPCS: 36415; 85025; 99284; G0481

== ENCOUNTER 2016-07-04 03:47 | Emergency (ER) | payer MEDICARE, MEDICAID ==
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
[2016-07-04] MEDS ORDERED: ACETAMINOPHEN 500 MG TABLET PO ONE (04:20)
[2016-07-04] MEDS ORDERED: BACITRACIN ZINC 30 APPL TUBE TP ONE (04:21)
[2016-07-04 04:48] VITALS: BP 138/76
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
== END 2016-07-04 04:46 | disposition home or self-care (01) ==
LOC: ER 03:47
DX: S00.03XA Contusion of scalp, initial encounter (principal); W01.190A Fall on same level from slipping, tripping and stumbling with subsequent striking against furniture, initial encounter; Z91.81 History of falling; Y93.9 Activity, unspecified; Y92.009 Unspecified place in unspecified non-institutional (private) residence as the place of occurrence of the external cause; I10 Essential (primary) hypertension; F41.9 Anxiety disorder, unspecified; K21.9 Gastro-esophageal reflux disease without esophagitis; E03.9 Hypothyroidism, unspecified; G40.409 Other generalized epilepsy and epileptic syndromes, not intractable, without status epilepticus

== ENCOUNTER 2016-08-15 04:43 | Emergency (ER) | payer MEDICARE, MEDICAID ==
[2016-08-15 05:19] LABS: Hematocrit 46.5 % (37.0-47.0); Hemoglobin 15.7 gm/dL (12.5-16.0); Mean Cell Volume 105.4 fl (78-100); Mean Corpuscular Hemoglobin 35.6 pg (27-31); Mean Corpuscular Hgb Conc 33.8 g/dl (32-36); Mean Platelet Volume 8.8 fl (6.0-9.5); Neutrophil # 3.4 K/mm3 (1.3-6.0); Neutrophil % 40.5 % (42-75.0); Platelet Count 376 K/mm3 (150-450); Red Blood Count 4.41 M/mm3 (4.2-5.4); Red Cell Distribution Width 13.1 % (11.5-14.0); White Blood Count 8.5 K/mm3 (4.0-10.5)
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
[2016-08-15 05:29] LABS: Prothrombin Time (Patient) 10.2 Seconds (9.4-11.4)
[2016-08-15 05:38] LABS: ALT 34 U/L (19-67); AST 56 U/L (0-48); Alkaline Phosphatase * 125 U/L (50-170); Anion Gap 16.3 mmol/L (6.8-13.8); BUN/Creatinine Ratio 3.3 (9.0-21.6); Bilirubin, Total 0.5 mg/dL (0.0-1.1); Blood Urea Nitrogen 2 mg/dL (3-23); Ca. Corrected For Albumin 8.9 mg/dL (8.4-10.2); Calcium * 8.4 mg/dL (7.9-10.9); Carbon Dioxide 24.4 mmol/L (24-32.6); Chloride 101 mmol/L (97-106); Glucose * 114 mg/dL (70-110); Potassium 3.7 mmol/L (3.4-4.6); Sodium 138 mmol/L (132-142); Troponin I Less than 0.017 ng/ml (0.00-0.10)
[2016-08-15 05:57] LABS: INR 0.98 INR (0.90-1.10); Partial Thrombolplastin Time 29.2 Seconds (24-32)
[2016-08-15 05:59] LABS: Urine Bilirubin Negative (NEGATIVE); Urine Blood Negative /ul (NEGATIVE); Urine Ketone Negative (NEGATIVE); Urine Nitrite Negative (NEGATIVE); Urine Protein Negative (NEGATIVE); Urine Specific Gravity <=1.005 SP.GR. (1.005-1.010); Urine Urobilinogen Normal (NORMAL)
[2016-08-15 06:05] VITALS: BP 132/87
[2016-08-15 06:17] LABS: Urine Appearance Clear; Urine Bacteria None Seen; Urine Color Pale Yellow; Urine RBC TRACE /hpf (0-5); Urine WBC TRACE /hpf (0-5)
== END 2016-08-15 06:57 | disposition home or self-care (01) ==
LOC: ER 04:43
DX: R07.89 Other chest pain (principal); F10.120 Alcohol abuse with intoxication, uncomplicated; Y90.9 Presence of alcohol in blood, level not specified; Z72.0 Tobacco use
CPT/HCPCS: 36415; 71010; 80053; 81001; 84484; 85025; 85610; 85730; 93005; 99285; G0481

== ENCOUNTER 2016-08-23 14:05 | Emergency (ER) | payer MEDICARE, MEDICAID ==
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
[2016-08-23] MEDS ORDERED: ALBUTEROL SULFATE/IPRATROPIUM 3 ML NEBU IH ONE ×2 (14:32→14:35)
[2016-08-23] MEDS ORDERED: predniSONE 20 MG TABLET PO ONE (14:32)
[2016-08-23] MEDS ORDERED: predniSONE 20 MG TABLET ONE (14:35)
[2016-08-23 15:10] VITALS: BP 118/84
== END 2016-08-23 16:07 | disposition home or self-care (01) ==
LOC: ER 14:05
DX: S22.31XA Fracture of one rib, right side, initial encounter for closed fracture (principal); J44.9 Chronic obstructive pulmonary disease, unspecified; F17.200 Nicotine dependence, unspecified, uncomplicated; Y04.8XXA Assault by other bodily force, initial encounter

== ENCOUNTER 2016-09-20 00:39 | Emergency (ER) | payer MEDICARE, MEDICAID ==
--- NOTE | 2016-09-20 01:46 | ERNOTE ---
Upper Extremity HPI - Narrative Date of Service: 09/20/16 - General Extremities Pain Location: forearm: left Time Seen by Provider: 09/20/16 01:44 Source: patient Exam Limitations: no limitations - Immun/Allergies/Home Medications Immunizations: IMMUNIZATION HX Immunizations Up to Date Yes History of Influenza Vaccine No Hx Pneumococcal Vaccination Yes Allergies/Adverse Reactions: Allergies Allergy/AdvReac Type Severity Reaction Status Date / Time Iodinated Contrast Media - Allergy Intermediate blood clots Verified 09/20/16 01 :26 Oral and [Iodinated Contrast Media - IV Dye] phenobarbital Allergy Intermediate seizure Verified 09/20/16 01:26 amoxicillin trihydrate AdvReac Mild Vomiting Verified 09/20/16 01:26 [From Augmentin] egg AdvReac Mild runny nose Verified 09/20/16 01:26 ibuprofen AdvReac Mild Vomiting Verified 09/20/16 01:26 potassium clavulanate AdvReac Mild Vomiting Verified 09/20/16 01:26 [From Augmentin] promethazine HCl AdvReac Mild Vomiting Verified 09/20/16 01:26 [From Phenergan] Home Medications: HOME MEDICATIONS ALPRAZolam [Xanax] 1 mg PO TID PRN 04/30/15 [Last Taken Unknown] Albuterol Sulfate [Proair Hfa] 2 puff IH QID PRN #1 inhaler 04/30/15 [Last Taken Unknown] Albuterol Sulfate/Ipratropium [Duoneb 2.5-0.5MG/3ML Soln] 3 ml IH QID PRN #60 nebu 04/30/15 [Last Taken Unknown] diphenhydrAMINE HCL [Benadryl] 25 mg PO TID PRN 02/16/16 [Last Taken Unknown] levETIRAcetam [Keppra] 500 mg PO BID 03/12/16 [Last Taken Unknown] Gabapentin 300 mg PO BID PRN 07/04/16 [Last Taken Unknown] traMADol HCL [Ultram] 50 mg PO QID PRN #20 tablet 08/23/16 [Last Taken Unknown] - History of Present Illness Narrative: 56-year-old is well-known to the emergency Department complains of bilateral forearm petechiae that has been getting worse over the course one month he comes to the emergency department tonight because she thinks that the petechiae getting darker. She admits to drinking alcohol daily for approximately 40 years and eyes any current pain. No history of fevers, chills, nausea or vomiting. Adjusted to the patient the petechiae on her arm is due to her alcohol abuse, stated that "I am not going to stop drinking". Time (Timing): 01:15 Occurred: other Severity: mild Modifying Factors - (Improves): Reports: other - nothing Modifying Factors - (Worsens): Reports: other Review of Systems - Review of Systems Constitutional: Present: no symptoms reported EYE: Present: no symptoms reported ENT: Present: no symptoms reported Respiratory: Present: no symptoms reported Cardiology: Present: no symptoms reported Gastrointestinal/Abdominal: Present: no symptoms reported Genitourinary: Present: no symptoms reported Musculoskeletal: Present: See HPI Neurological: Present: no symptoms reported Endocrine: Present: no symptoms reported Hematologic/Lymphatic: Present: See HPI - Patient's Past Medical History Patient History - Medical: Alcohol Abuse, Anxiety, GERD, Hypothyroidism, Osteoarthritis, Seizures Patient History - Cardiac/Respiratory: Asthma, COPD, Hypertension Patient History - Cancer: No Hx of Cancer Patient History - Surgical Procedures: Cholecystectomy, , Other Patient History - Other: None LMP (females 10-50): Menopausal - Family History Mother Family History - Medical: Father Family History - Medical: Family History - Cardiac/Respiratory: Hypertension - Social History Living Situations: alone Abuse History: No History of abuse Psych History: Hx of Anxiety Patient requests Smoking Cessation Consult: No Initiate information on Smoking Cessation: No Alcohol Use: heavy Drug Use: benzodiazepine - Immunizations Immunizations Up to Date: Yes Hx Pneumococcal Vaccination: Yes History of Influenza Vaccine: No Physical Exam - Physical Exam General Appearance: Present: no apparent distress Head Exam: Present: normal inspection Eye Exam: Normal inspection: bilateral Ears, Nose, Throat: Present: normal ENT inspection Neck: Present: normal inspection Respiratory: Present: no respiratory distress Cardiovascular/Chest: Present: regular rate, rhythm Gastrointestinal/Abdominal: Present: nondistended Back Exam: Present: normal inspection Extremity Exam: Present: other - multiple petechiae present at both forearms. They are not nonblanching and nontender. Neurological Exam: Present: alert, oriented Skin Exam: Present: normal color, warm/dry ED Progress - Vital Signs Patient's Vital Signs:: I have reviewed the patient's vital signs. Vital Signs: Vital Signs 09/20/16 01:07 Temperature 36.7 C Pulse Rate 84 Respiratory 22 H Rate Blood Pressure 157/108 O2 Sat by Pulse 94 Oximetry - Progress/Reassessment Chief Complaint: Upper Extremity Injury/Problem Departure Clinical Impression: Vasculitis limited to skin, Alcohol abuse - Departure Disposition: Home self-care Condition: Fair Instructions: Alcohol Use Disorder, Vasculitis Print Language: Belarusian Additional Instructions: Follow up with your doctor. Stop drinking alcohol. Referrals: Cesia Otto DO [Primary Care Provider] -
[2016-09-20 02:19] LABS: Hematocrit 46.7 % (37.0-47.0); Hemoglobin 16.2 gm/dL (12.5-16.0); Mean Cell Volume 103.3 fl (78-100); Mean Corpuscular Hemoglobin 35.8 pg (27-31); Mean Corpuscular Hgb Conc 34.7 g/dl (32-36); Mean Platelet Volume 9.3 fl (6.0-9.5); Neutrophil # 1.3 K/mm3 (1.3-6.0); Neutrophil % 23.8 % (42-75.0); Platelet Count 173 K/mm3 (150-450); Red Blood Count 4.52 M/mm3 (4.2-5.4); Red Cell Distribution Width 13.5 % (11.5-14.0); White Blood Count 5.4 K/mm3 (4.0-10.5)
[2016-09-20 02:26] LABS: Anion Gap 17.6 mmol/L (6.8-13.8); BUN/Creatinine Ratio 4.8 (9.0-21.6); Calcium * 8.2 mg/dL (7.9-10.9); Carbon Dioxide 24.1 mmol/L (24-32.6); Estimated Creat Clear 81.5; Potassium 3.7 mmol/L (3.4-4.6)
[2016-09-20 02:36] LABS: INR 0.96 INR (0.90-1.10)
[2016-09-20 03:38] VITALS: BP 146/88
== END 2016-09-20 03:37 | disposition home or self-care (01) ==
LOC: ER 00:39
DX: L95.9 Vasculitis limited to the skin, unspecified (principal); F10.10 Alcohol abuse, uncomplicated; R56.9 Unspecified convulsions; J44.9 Chronic obstructive pulmonary disease, unspecified; F41.9 Anxiety disorder, unspecified

== ENCOUNTER 2016-09-30 01:14 | Emergency (ER) | payer MEDICARE, MEDICAID ==
--- NOTE | 2016-09-30 02:02 | ERNOTE ---
Lower Extremity HPI - General Lower Extremities Pain: ankle: left - pain, swelling Time Seen by Provider: 09/30/16 01:54 Source: patient Exam Limitations: no limitations - Immun/Allergies/Home Medications Immunizations: IMMUNIZATION HX Immunizations Up to Date Yes History of Influenza Vaccine No Hx Pneumococcal Vaccination Yes Allergies/Adverse Reactions: Allergies Allergy/AdvReac Type Severity Reaction Status Date / Time Iodinated Contrast- Oral and Allergy Intermediate blood clots Verified 09/30/16 01:28 IV Dye [Iodinated Contrast Media - IV Dye] phenobarbital Allergy Intermediate seizure Verified 09/30/16 01:28 amoxicillin trihydrate AdvReac Mild Vomiting Verified 09/30/16 01:28 [From Augmentin] egg AdvReac Mild runny nose Verified 09/30/16 01:28 ibuprofen AdvReac Mild Vomiting Verified 09/30/16 01:28 potassium clavulanate AdvReac Mild Vomiting Verified 09/30/16 01:28 [From Augmentin] promethazine HCl AdvReac Mild Vomiting Verified 09/30/16 01:28 [From Phenergan] Home Medications: HOME MEDICATIONS ALPRAZolam [Xanax] 1 mg PO TID PRN 04/30/15 [Last Taken Unknown] Albuterol Sulfate [Proair Hfa] 2 puff IH QID PRN #1 inhaler 04/30/15 [Last Taken Unknown] Albuterol Sulfate/Ipratropium [Duoneb 2.5-0.5MG/3ML Soln] 3 ml IH QID PRN #60 nebu 04/30/15 [Last Taken Unknown] diphenhydrAMINE HCL [Benadryl] 25 mg PO TID PRN 02/16/16 [Last Taken Unknown] levETIRAcetam [Keppra] 500 mg PO BID 03/12/16 [Last Taken Unknown] Gabapentin 300 mg PO BID PRN 07/04/16 [Last Taken Unknown] traMADol HCL [Ultram] 50 mg PO QID PRN #20 tablet 08/23/16 [Last Taken Unknown] Meloxicam 7.5 mg PO DAILY #7 tablet 09/30/16 [Last Taken Unknown] - History of Present Illness Narrative: Pt was walking around the [place] and her ankle began to hurt some then improved with rest. Then after getting home it began to hurt worse Occurred: this evening Method of Injury: Reports: no apparent injury Loss of Consciousness: Reports: no loss of consciousness Modifying Factors - (Improves): Reports: immobilization Modifying Factors - (Worsens): Reports: movement Review of Systems - Review of Systems Constitutional: Present: no symptoms reported Respiratory: Present: no symptoms reported Musculoskeletal: Present: See HPI Skin: Absent: rash Neurological: Absent: numbness, tingling Psych: Present: anxiety - Patient's Past Medical History Patient History - Medical: Alcohol Abuse, Anxiety, GERD, Hypothyroidism, Osteoarthritis, Seizures Patient History - Cardiac/Respiratory: Asthma, COPD, Hypertension Patient History - Cancer: No Hx of Cancer Patient History - Surgical Procedures: Cholecystectomy, , Other Patient History - Other: None - Family History Mother Family History - Medical: Father Family History - Medical: Family History - Cardiac/Respiratory: Hypertension - Social History Living Situations: significant other Abuse History: No History of abuse Psych History: Hx of Anxiety Smoking Status: Current every day smoker Have you smoked in the past 12 months: Yes Do you dip or chew tobacco: No Alcohol Use: heavy Drug Use: benzodiazepine - Immunizations Immunizations Up to Date: Yes Hx Pneumococcal Vaccination: Yes History of Influenza Vaccine: No Physical Exam - Physical Exam General Appearance: Present: wd/wn, alert, no apparent distress Head Exam: Present: normal inspection, no evidence of injury Neck: Present: normal inspection, nontender Respiratory: Present: no respiratory distress, no accessory muscle use Extremity Exam: Present: extremity edema - bilateral pedal edema, R>L. , other - bilateral feet are flat and have restricted motion Neurological Exam: Present: alert, oriented, normal mood/affect Skin Exam: Present: normal color, warm/dry ED Progress - Vital Signs Patient's Vital Signs:: I have reviewed the patient's vital signs. Vital Signs: Vital Signs 09/30/16 01:22 Temperature 36.6 C Pulse Rate 85 Respiratory 16 Rate Blood Pressure 126/86 O2 Sat by Pulse 95 Oximetry - X-Ray X-Ray #1 X-Ray: ankle - left Interpretation: Interp. by me X-ray Comments: Previous surgical changes with two supporting screws remaining, in good position. No evidence of loosening or fracture. - Progress/Reassessment Chief Complaint: Lower Extremity Pain/ Injury Progress:: Unchanged Departure Clinical Impression: Left ankle strain Qualifiers: Encounter type: initial encounter Qualified Code(s): S96.912A - Strain of unspecified muscle and tendon at ankle and foot level, left foot, initial encounter - Departure Disposition: Home self-care Condition: Good Instructions: Cryotherapy, [id number], Ankle Pain Additional Instructions: Use the prescription medication as needed. Use ice for 3-5 days. Follow up with your regular doctor if not improving Prescriptions: Meloxicam 7.5 mg PO DAILY #7 tablet
[2016-09-30] MEDS ORDERED: KETOROLAC TROMETHAMINE 60 MG/2 ML VIAL IM ONE (02:42)
[2016-09-30] MEDS ORDERED: KETOROLAC TROMETHAMINE 30 MG/ML VIAL ONE (02:43)
[2016-09-30 02:50] VITALS: BP 129/71
== END 2016-09-30 02:48 | disposition home or self-care (01) ==
LOC: ER 01:14
DX: S96.912A Strain of unspecified muscle and tendon at ankle and foot level, left foot, initial encounter (principal); K21.9 Gastro-esophageal reflux disease without esophagitis; E03.9 Hypothyroidism, unspecified; M19.90 Unspecified osteoarthritis, unspecified site; J44.9 Chronic obstructive pulmonary disease, unspecified; I10 Essential (primary) hypertension; F17.200 Nicotine dependence, unspecified, uncomplicated

== ENCOUNTER 2016-12-20 03:22 | Emergency (ER) | payer MEDICARE, MEDICAID ==
--- NOTE | 2016-12-20 03:40 | ERNOTE ---
Psychological HPI - Date Date of Service: 12/20/16 - General Chief Complaint: Anxiety Source: Reports: patient Exam Limitations: Reports: no limitations - Immun/Allergies/Home Medications Allergies/Adverse Reactions: Allergies phenobarbital Allergy (Intermediate, Verified 09/30/16 01:28) seizure amoxicillin trihydrate [From Augmentin] Adverse Reaction (Mild, Verified 01:28) Vomiting egg Adverse Reaction (Mild, Verified 09/30/16 01:28) runny nose ibuprofen Adverse Reaction (Mild, Verified 09/30/16 01:28) Vomiting potassium clavulanate [From Augmentin] Adverse Reaction (Mild, Verified 01:28) Vomiting promethazine HCl [From Phenergan] Adverse Reaction (Mild, Verified 09/30/16 01: 28) Vomiting Home Medications: HOME MEDICATIONS ALPRAZolam [Xanax] 1 mg PO TID PRN 04/30/15 [Last Taken Unknown] Albuterol Sulfate [Proair Hfa] 2 puff IH QID PRN #1 inhaler 04/30/15 [Last Taken Unknown] Albuterol Sulfate/Ipratropium [Duoneb 2.5-0.5MG/3ML Soln] 3 ml IH QID PRN #60 nebu 04/30/15 [Last Taken Unknown] diphenhydrAMINE HCL [Benadryl] 25 mg PO TID PRN 02/16/16 [Last Taken Unknown] levETIRAcetam [Keppra] 500 mg PO BID 03/12/16 [Last Taken Unknown] Gabapentin 300 mg PO BID PRN 07/04/16 [Last Taken Unknown] - History of Present Illness Narrative: Patient presents because she has pain in the right shoulder for 2 weeks. Patient also has a history of seizure disorders and has been drinking quite heavily today. She denies taking any medication for her right shoulder other than alcohol she has consumed Time Seen by Provider: 12/20/16 03:45 Review of Systems - Review of Systems Constitutional: Present: no symptoms reported EYE: Present: no symptoms reported ENT: Present: no symptoms reported Respiratory: Present: no symptoms reported Cardiology: Present: no symptoms reported Gastrointestinal/Abdominal: Present: no symptoms reported Genitourinary: Present: no symptoms reported Musculoskeletal: Present: See HPI, other - patient fell 2 weeks ago onto her right shoulder subsequent x-rays have been negative. Skin: Present: no symptoms reported - Patient's Past Medical History Patient History - Medical: Alcohol Abuse, Anxiety, GERD, Hypothyroidism, Osteoarthritis, Seizures Patient History - Cardiac/Respiratory: Asthma, COPD, Hypertension Patient History - Cancer: No Hx of Cancer Patient History - Surgical Procedures: Cholecystectomy, , Other Patient History - Other: None - Family History Mother Family History - Medical: Father Family History - Medical: Family History - Cardiac/Respiratory: Hypertension - Social History Living Situations: home Abuse History: No History of abuse Psych History: Hx of Anxiety Smoking Status: Current every day smoker Alcohol Use: occasionally Drug Use: none - Immunizations Immunizations Up to Date: Yes Hx Pneumococcal Vaccination: Yes History of Influenza Vaccine: No Psychological Exam - Exam General Appearance: Present: wd/wn, alert, no apparent distress, other - patient appears to be under the influence of alcohol Head Exam: Present: normal inspection, no evidence of injury Neurological: Present: alert, normal mood/affect Thoughts/Hallucinations: Present: other - patient is acting as if she is drunk Behavior/Eye Contact/Speech: Present: belligerent, other - uncooperative at time but then after coaxing she follows directions Neck: Present: normal inspection Respiratory: Present: no respiratory distress, normal breath sounds, no accessory muscle use, chest nontender, lungs clear Cardiovascular/Chest: Present: regular rate, rhythm, no murmur, normal peripheral pulses Gastrointestinal/Abdominal: Present: normal bowel sounds Back Exam: Present: normal inspection, normal range of motion, no CVA tenderness , no vertebral tenderness Extremity Exam: Present: normal inspection, non-tender, normal range of motion - with this examiner simply touches the patient's right shoulder she screams in pain there are no lesions noted in the region when this examiner is not actively looking at the patient from behind a curtain she is well able to move her right shoulder and CONFIGURATION. Liver when I ask her to move her right upper arm she states that she cannot due to pain, no edema Skin Exam: Present: normal color, warm/dry, no cyanosis ED Progress - Results and Orders Patient's Lab Results:: I have reviewed the patient's lab results. - Vital Signs Patient's Vital Signs:: I have reviewed the patient's vital signs. Vital Signs: Vital Signs 12/20/16 03:25 Temperature 36.3 C L Pulse Rate 77 Respiratory 10 L Rate Blood Pressure 141/110 O2 Sat by Pulse 99 Oximetry - EKG EKG: NSR - normal sinus rhythm no ST or T changes interpreted by me EKG read: Interp. by me - X-Ray X-Ray #1 X-Ray: chest - Progress/Reassessment Chief Complaint: Anxiety Plan - Plan Plan: Patient repeatedly states that she is anxious and would like to have something to calm her down regretfully this examiner is not comfortable doing so in light of the quantity of alcohol this patient has consumed. Patient's urine drug screen is positive not only for alcohol but also for opiates at this time the only option for pain relief would be an ice pack and Ultram 50 mg by mouth. Patient at this time informs me that Ultram causes her to have convulsions. Her d-dimer was slightly elevated a CTA of the chest revealed the patient has no pulmonary embolism her cardiac enzymes are negative her pain of her right shoulder can not be treated by me because her liver enzymes are elevated therefore I cannot give her acetaminophen, she is unable to take Ultram ibuprofen and a derivative of those such as Toradol. I am unable to give her any opiates as she ordered he has opiates in her urine she will be given an ice pack for her shoulder and discharged home. Departure Clinical Impression: Substance abuse Right shoulder pain Qualifiers: Chronicity: chronic Qualified Code(s): M25.511 - Pain in right shoulder; G89.29 - Other chronic pain; G89.29 - Other chronic pain - Departure Disposition: Home self-care Condition: Good Instructions: Arthritis Additional Instructions: Please refrain from drinking excessive amounts of alcohol and taking opiates. When you engage in such behavior and come to the emergency room for pain we providers are very limited as to what we can give you so that there is no interaction. Please follow-up with your regular doctor for chronic pain. Referrals: Cesia Otto DO [Primary Care Provider] -
[2016-12-20 04:06] LABS: Hematocrit 44.1 % (37.0-47.0); Hemoglobin 15.2 gm/dL (12.5-16.0); Mean Cell Volume 107.3 fl (78-100); Mean Corpuscular Hgb Conc 34.5 g/dl (32-36); Neutrophil # 4.7 K/mm3 (1.3-6.0); Neutrophil % 69.6 % (42-75.0); Platelet Count 304 K/mm3 (150-450); Red Blood Count 4.11 M/mm3 (4.2-5.4); Red Cell Distribution Width 13.5 % (11.5-14.0); White Blood Count 6.7 K/mm3 (4.0-10.5)
[2016-12-20 04:25] LABS: Cocaine Ur Negative (NEGATIVE); Urine Barbiturate Negative (NEGATIVE); Urine Benzodiazepines Negative (NEGATIVE); Urine PCP Negative (NEGATIVE); Urine THC Negative (NEGATIVE)
[2016-12-20 04:26] LABS: ALT 86 U/L (19-67); AST 85 U/L (0-48); Albumin * 3.4 gm/dl (3.4-5.0); Alkaline Phosphatase * 157 U/L (50-170); Anion Gap 14.3 mmol/L (6.8-13.8); BUN/Creatinine Ratio 3.9 (9.0-21.6); Bilirubin, Total 0.5 mg/dL (0.0-1.1); Blood Urea Nitrogen 2 mg/dL (3-23); Ca. Corrected For Albumin 8.8 mg/dL (8.4-10.2); Calcium * 8.6 mg/dL (7.9-10.9); Carbon Dioxide 28.2 mmol/L (24-32.6); Chloride 100 mmol/L (97-106); Glucose * 126 mg/dL (70-110); Potassium 3.5 mmol/L (3.4-4.6); Sodium 139 mmol/L (132-142); Total Protein 7.6 gm/dL (6.2-8.2); Troponin I Less than 0.017 ng/ml (0.00-0.10)
[2016-12-20 04:33] LABS: Urine Opiates Positive (NEGATIVE)
[2016-12-20] MEDS ORDERED: traMADol HCL 50 MG TABLET PO ONE (04:35)
[2016-12-20 06:41] VITALS: BP 104/61
== END 2016-12-20 07:07 | disposition home or self-care (01) ==
LOC: ER 03:22
DX: M25.511 Pain in right shoulder (principal); G89.29 Other chronic pain; F10.129 Alcohol abuse with intoxication, unspecified; F11.90 Opioid use, unspecified, uncomplicated; F41.9 Anxiety disorder, unspecified; F17.200 Nicotine dependence, unspecified, uncomplicated
CPT/HCPCS: 36415; 71020; 71275; 80053; 80307; 84484; 85025; 85379; 93005; 99285; G0481

== ENCOUNTER 2016-12-24 13:21 | Observation (INO) | payer MEDICARE, MEDICAID ==
[2016-12-24] MEDS ORDERED: ALBUTEROL SULFATE 2.5 MG/0.5 ML VIAL.NEB IH ONE ×2 (13:39→15:12)
[2016-12-24 13:58] LABS: Hematocrit 44.7 % (37.0-47.0); Hemoglobin 15.8 gm/dL (12.5-16.0); Mean Corpuscular Hemoglobin 36.7 pg (27-31); Mean Corpuscular Hgb Conc 35.3 g/dl (32-36); Mean Platelet Volume 9.2 fl (6.0-9.5); Neutrophil # 5.3 K/mm3 (1.3-6.0); Neutrophil % 83.8 % (42-75.0); Platelet Count 198 K/mm3 (150-450); Red Cell Distribution Width 13.4 % (11.5-14.0); White Blood Count 6.3 K/mm3 (4.0-10.5)
[2016-12-24 14:21] LABS: Troponin I 0.023 ng/ml (0.00-0.10)
[2016-12-24 14:23] LABS: ALT 61 U/L (19-67); AST 94 U/L (0-48); Albumin * 3.2 gm/dl (3.4-5.0); Alkaline Phosphatase * 156 U/L (50-170); Anion Gap 17.4 mmol/L (6.8-13.8); BNP * 942 pg/mL (5-205); BUN/Creatinine Ratio 12.3 (9.0-21.6); Bilirubin, Total 0.7 mg/dL (0.0-1.1); Blood Urea Nitrogen 8 mg/dL (3-23); Ca. Corrected For Albumin 8.6 mg/dL (8.4-10.2); Calcium * 8.3 mg/dL (7.9-10.9); Carbon Dioxide 22.3 mmol/L (24-32.6); Chloride 96 mmol/L (97-106); Glucose * 114 mg/dL (70-110); Potassium 3.7 mmol/L (3.4-4.6); Sodium 132 mmol/L (132-142); Total Protein 7.3 gm/dL (6.2-8.2)
--- NOTE | 2016-12-24 15:40 | ERNOTE ---
Neuro HPI ER Record Date of Service: 12/24/16 Presenting Symptoms: confusion, falling Time Seen by Provider: 12/24/16 13:42 Source: patient Exam Limitations: no limitations Immunizations: IMMUNIZATION HX Immunizations Up to Date Yes History of Influenza Vaccine No Hx Pneumococcal Vaccination Yes Allergies/Adverse Reactions: Allergies Allergy/AdvReac Type Severity Reaction Status Date / Time phenobarbital Allergy Intermediate seizure Verified 12/24/16 13:28 amoxicillin trihydrate AdvReac Mild Vomiting Verified 12/24/16 13:28 [From Augmentin] egg AdvReac Mild runny nose Verified 12/24/16 13:28 ibuprofen AdvReac Mild Vomiting Verified 12/24/16 13:28 potassium clavulanate AdvReac Mild Vomiting Verified 12/24/16 13:28 [From Augmentin] promethazine HCl AdvReac Mild Vomiting Verified 12/24/16 13:28 [From Phenergan] Home Medications: HOME MEDICATIONS ALPRAZolam [Xanax] 1 mg PO TID PRN 04/30/15 [Last Taken Unknown] Albuterol Sulfate [Proair Hfa] 2 puff IH QID PRN #1 inhaler 04/30/15 [Last Taken Unknown] Albuterol Sulfate/Ipratropium [Duoneb 2.5-0.5MG/3ML Soln] 3 ml IH QID PRN #60 nebu 04/30/15 [Last Taken Unknown] levETIRAcetam [Keppra] 500 mg PO BID 03/12/16 [Last Taken Unknown] HYDROcodone/ACETAMINOPHEN [Hydrocodon-Acetaminophen 5-325] 1 each PO QID PRN 10/02 [Last Taken Unknown] - History of Present Illness Narrative: [facility] with c/o confusion and hypoxia. Son states that she has a hx of seizures and will forget her seizure medications and have confusion. He also states that she has had a great amount of falls recently and that pt. has a hx of ETOH abuse so he is concerned that pt. may have complications from this. Pt. is unable to tell me why she is here ofr what day it is but can tell me who she is. Pt. son states that she has some mild short term memory loss but denies that this confusion is normal. Review of Systems - Review of Systems Constitutional: Present: weakness, fatigue. Absent: fever, chills, malaise EYE: Present: no symptoms reported ENT: Present: no symptoms reported Respiratory: Present: shortness of breath. Absent: cough, wheezing Cardiology: Present: no symptoms reported. Absent: chest pain, palpitations, edema Gastrointestinal/Abdominal: Present: no symptoms reported. Absent: nausea, vomiting, diarrhea Genitourinary: Present: no symptoms reported. Absent: frequency, decreased urinary output Musculoskeletal: Present: no symptoms reported. Absent: back pain, joint pain Neurological: Present: seizure, pre-existing deficit, other - confusion All Other Systems: All systems neg except as marked - Patient's Past Medical History Patient History - Medical: Alcohol Abuse, Anxiety, GERD, Hypothyroidism, Osteoarthritis, Seizures Patient History - Cardiac/Respiratory: Asthma, COPD, Hypertension Patient History - Cancer: No Hx of Cancer Patient History - Surgical Procedures: Cholecystectomy, , Other Patient History - Other: None - Family History Mother Family History - Medical: Father Family History - Medical: Family History - Cardiac/Respiratory: Hypertension - Social History Abuse History: No History of abuse Psych History: Hx of Anxiety Smoking Status: Current every day smoker Have you smoked in the past 12 months: Yes - Immunizations Immunizations Up to Date: Yes Hx Pneumococcal Vaccination: Yes History of Influenza Vaccine: No Physical Exam - Physical Exam General Appearance: Present: wd/wn, lethargic Head Exam: Present: normal inspection, no evidence of injury Eye Exam: Normal inspection: bilateral, PERRL: bilateral, EOMI: bilateral Ears, Nose, Throat: Present: normal ENT inspection, normal pharynx Neck: Present: normal inspection, nontender. Absent: lymphadenopathy (R), lymphadenopathy (L) Respiratory: Present: no respiratory distress, no accessory muscle use, chest nontender, decreased breath sounds Cardiovascular/Chest: Present: no murmur, normal peripheral pulses, tachycardia Gastrointestinal/Abdominal: Present: normal bowel sounds, nontender, nondistended, soft, no organomegaly Back Exam: Present: normal inspection, normal range of motion, no CVA tenderness , no vertebral tenderness Extremity Exam: Present: normal inspection, non-tender, normal range of motion, no edema Neurological Exam: Present: motor weakness - generalized, disoriented to time, disoriented to situation. Absent: disoriented to person, disoriented to place Skin Exam: Present: warm/dry, pallor [place] Coma Scale - Assess Eye Opening: Spontaneous Motor: Obeys Commands Verbal: Confused - Total Coma Scale Total: 14 Initial Stroke Assessment - Date/Time of assessment Stroke Scale Date: 12/24/16 Stroke Scale Time: 13:10 - NIH Stroke Scale Level of Consciousness: Drowsy LOC Questions (Year and Age): Answers one correctly LOC Commands (open/close eyes/fist): Performs one correctly Lateral Gaze Paresis: None Visual Field Loss: No visual loss Facial Palsy: Normal movement Right Arm Motor (10 sec hold): No drift Left Arm Motor (10 sec hold): No drift Right Leg Motor (5 sec hold): No drift Left Leg Motor (5 sec hold): No drift Limb Ataxia (finger/nose heel/baez): Absent Sensory Loss (pinprick arms/legs/face): No sensory loss Language Aphasia (description/naming/reading): Mild, yet understandable Dysarthria (speech clarity): Slurring, intelligeble Neglect Inattention (visual/tactile/auditory/spatial/person): No neglect Initial Stroke Scale Score:: 5 Stroke Inclusion/Exclusion Cri - A Inclusion (Must answer Yes to meet): no - Inclusion Questions: Yes Onset of symptoms <3 1/2 hours of admission to ETC: No - B Exclusion (Must answwer No to meet): yes - Exclusion Questions: Major symptoms rapidly improving: No Seizure at onset of stroke: Yes SBP>185; DBP>110 at time treatment is to begin: No Patient received Heparin or Coumadin within 48 hours: No Patient has elevated PTT or Protime/INR: No Stroke, head injury, major surgery, serious trauma in 3 mon.: No Previous intracranial hemmorhage: No Recent IL: No Known AV malformation or aneurysm: No Blood glucose <50mg/dl or >400mg/dl: No NIHSS Score <4 or >22 performed by physician: No - Total NIHSS Score Score:: 5 ED Progress - Date and Time Seen: Date and Time: 12/24/16 16:[address] Otto and we will admit for further evaluation of acute CHF. - Results and Orders Patient's Lab Results:: I have reviewed the patient's lab results. - Vital Signs Patient's Vital Signs:: I have reviewed the patient's vital signs. Vital Signs: Vital Signs 12/24/16 12/24/16 13:22 15:20 Temperature 38.2 C H 37.7 C H Pulse Rate 98 93 Respiratory 22 H 22 H Rate Blood Pressure 175/83 158/62 O2 Sat by Pulse 94 94 Oximetry - X-Ray X-Ray #1 X-Ray: chest Interpretation: Reviewed by me X-ray Comments: pulmonary congestion - CT/Ultrasound CT/Ultrasound Narrative: CT head with white matter changes but no acute. - Progress/Reassessment Chief Complaint: Altered Mental Status Progress:: Unchanged Departure Clinical Impression: Noncompliance w/medication treatment due to intermit use of medication, Alcoholic fatty liver Seizure Qualifiers: Convulsion type: unspecified Qualified Code(s): R56.9 - Unspecified convulsions CHF (congestive heart failure) Qualifiers: Congestive heart failure type: unspecified congestive heart failure type Congestive heart failure chronicity: acute Qualified Code(s): I50.9 - Heart failure, unspecified - Departure Disposition: [facility] Condition: Fair
[2016-12-24 16:04] LABS: Urine Bilirubin Negative (NEGATIVE); Urine Blood Negative /ul (NEGATIVE); Urine Ketone 50 mg/dL (NEGATIVE); Urine Nitrite Negative (NEGATIVE); Urine Protein Negative (NEGATIVE); Urine Urobilinogen Normal (NORMAL)
[2016-12-24 16:16] LABS: Cocaine Ur Negative (NEGATIVE); Urine Barbiturate Negative (NEGATIVE); Urine Benzodiazepines Negative (NEGATIVE); Urine Opiates Negative (NEGATIVE); Urine PCP Negative (NEGATIVE); Urine THC Negative (NEGATIVE)
[2016-12-24 16:27] LABS: Urine Appearance Clear; Urine Bacteria None Seen; Urine Color Yellow; Urine RBC None Seen /hpf (0-5); Urine WBC None Seen /hpf (0-5)
[2016-12-24] MEDS ORDERED: FUROSEMIDE 10 MG/ML VIAL IV ONE (16:38)
[2016-12-24] MEDS ORDERED: FUROSEMIDE 10 MG/ML VIAL ONE (17:13)
[2016-12-24] MEDS: ACETAMINOPHEN 500 MG TABLET PO PRN (19:19)
--- NOTE | 2016-12-24 19:57 | HP ---
Chief Complaint - Chief Complaint Date of Service: 12/24/16 Time of Service: 19:56 Chief Complaint: Altered mental status History of Present Illness: 56 years old White female adm to the hospital from ER with reports of altered mental status. PMH significant for COPD, asthma, anxiety, GERD, alcohol abuse, hypertension, DVT and hypothyroidism. 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 Information obtained from nurses and ER record. Per nurse pt was seen in PCP office earlier today and sent to the [facility] for IVF bolus due to dehydration. While in the [facility] she got confused and was then sent to the ER. In ER CT head: No acute intra-cranial hemorrhage or mass effect. CXR : midly increased lung marking, correlate for diffuse pneumonitis or mild interstitial edema. Lasix 20mg x1 given and Keppra. per ER records pt have not been taking her medications at home and confusion is a new symptom per relative. Will adm OBV and continue work up. - Patient's Past Medical History Patient History - Medical: Alcohol Abuse, Anxiety, GERD, Hypothyroidism, Osteoarthritis, Seizures, Other Patient History - Cardiac/Respiratory: Asthma, COPD, Deep Vein Thrombosis, Hypertension, Hyperlipidemia Patient History - Cancer: No Hx of Cancer Patient History - Surgical Procedures: Cholecystectomy, , Other Patient History - Other: None LMP (females 10-50): Menopausal - Family History Mother Family History - Medical: , History Unknown Family History - Cardiac/Respiratory: History Unknown Family History - Cancer: Other Father Family History - Medical: Family History - Cardiac/Respiratory: Hypertension, Myocardial Infarction Family History - Cancer: No pertinent family hx - Social History Living Situations: home Abuse History: No History of abuse Psych History: Hx of Anxiety Smoking Status: Current every day smoker Have you smoked in the past 12 months: Yes Do you dip or chew tobacco: No Patient requests Smoking Cessation Consult: No Initiate information on Smoking Cessation: Yes - Immunizations Immunizations Up to Date: Yes Hx Pneumococcal Vaccination: Yes History of Influenza Vaccine: No Review Of Systems (GEN) - Review of Systems Generalized/Overall Review: Present: No Symptoms Reported EENTM: Present: No Symptoms Reported Respiratory: Present: No Symptoms Reported Cardiac: Present: No Symptoms Reported Abdominal: Present: No Symptoms Reported Neurological: Present: Headache Skin: Present: Bruising Endocrine: Present: No Symptoms Reported Immunizations: IMMUNIZATION HX Immunizations Up to Date Yes History of Influenza Vaccine No Hx Pneumococcal Vaccination Yes Allergies/Adverse Reactions: Allergies Allergy/AdvReac Type Severity Reaction Status Date / Time phenobarbital Allergy Intermediate seizure Verified 12/24/16 13:28 amoxicillin trihydrate AdvReac Mild Vomiting Verified 12/24/16 13:28 [From Augmentin] egg AdvReac Mild runny nose Verified 12/24/16 13:28 ibuprofen AdvReac Mild Vomiting Verified 12/24/16 13:28 potassium clavulanate AdvReac Mild Vomiting Verified 12/24/16 13:28 [From Augmentin] promethazine HCl AdvReac Mild Vomiting Verified 12/24/16 13:28 [From Phenergan] Home Medications: HOME MEDICATIONS ALPRAZolam [Xanax] 1 mg PO TID PRN 04/30/15 [Last Taken Unknown] levETIRAcetam [Keppra] 500 mg PO BID 03/12/16 [Last Taken Unknown] Albuterol Sulfate [Proair Hfa] 2 puff IH Q4H PRN 12/24/16 [Last Taken Unknown] Albuterol Sulfate/Ipratropium [Duoneb 2.5-0.5MG/3ML Soln] 3 ml IH Q4H PRN [Last Taken Unknown] HYDROcodone/ACETAMINOPHEN [Hydrocodon-Acetaminophen 5-325] 1 each PO Q4H PRN 10/02 [Last Taken Unknown] Exam - Exam Vital Signs: Vital Signs - Last Taken Temp 38.2 C H 12/24/16 19:21 Pulse 92 12/24/16 19:21 Resp 20 12/24/16 19:21 BP 127/59 12/24/16 19:21 Pulse Ox 92 12/24/16 19:21 Constitutional: Present: Cooperative, No distress ENT Exam: Present: hearing grossly normal Eye Exam: bilateral eye: normal inspection Neck: Present: full range of motion Back Exam: Present: normal inspection Breasts: Present: Exam deferred Respiratory: Present: chest non-tender, no respiratory distress, no accessory muscle use, decreased breath sounds Cardiovascular/Chest: Present: normal peripheral pulses, regular rate, rhythm, no chest tenderness, no edema, no JVD Peripheral Pulses: dorsalis-pedis (R): 2+, dorsalis-pedis (L): 2+ Abdomen: Present: Normal bowel sounds, soft, nontender, nondistended /Rectal: Present: Exam deferred Extremity: Present: normal range of motion, non-tender, normal inspection, no pedal edema Skin Exam: Present: normal color Lymphatic: Present: no adenopathy Neurologic: Present: alert - To self, normal mood/affect Appearance: Present: impaired insight, impaired recent memory Eye contact: Present: normal speech, avoids eye contact, refused to answer Thoughts: Present: no apparent hallucination Diagnostic Studies: Laboratory Results WBC 6.3 K/mm3 (4.0-10.5) 12/24/16 13:56 RBC 4.30 M/mm3 (4.2-5.4) 12/24/16 13:56 Hgb 15.8 gm/dL (12.5-16.0) 12/24/16 13:56 Hct 44.7 % (37.0-47.0) 12/24/16 13:56 MCV 104.0 fl (78-100) H 12/24/16 13:56 MCH 36.7 pg (27-31) H 12/24/16 13:56 MCHC 35.3 g/dl (32-36) 12/24/16 13:56 RDW 13.4 % (11.5-14.0) 12/24/16 13:56 Plt Count 198 K/mm3 (150-450) 12/24/16 13:56 MPV 9.2 fl (6.0-9.5) 12/24/16 13:56 Immature Gran % (Auto) 0.50 % (0.001-0.429) H 12/24/16 13:56 Immature Gran # (Auto) 0.03 K/mm3 (0.000-0.0310) 12/24/16 13:56 Neutrophils % 83.8 % (42-75.0) H 12/24/16 13:56 Lymphocytes % 9.7 % (20-51) L 12/24/16 13:56 Monocytes % 5.7 % (0.0-9) 12/24/16 13:56 Eosinophils % 0.0 % (0.0-3.0) 12/24/16 13:56 Basophils % 0.3 % (0.0-1.0) 12/24/16 13:56 Nucleated RBC % 0.0 k/mm3 (0-1) 12/24/16 13:56 Neutrophils # 5.3 K/mm3 (1.3-6.0) 12/24/16 13:56 Lymphocytes # 0.6 k/mm3 (1.5-3.5) L 12/24/16 13:56 Monocytes # 0.4 k/mm3 (0.0-1.0) 12/24/16 13:56 Eosinophils # 0.0 k/mm3 (0.0-0.7) 12/24/16 13:56 Absolute Basophils 0.0 k/mm3 (0.0-0.1) 12/24/16 13:56 pCO2 23.5 mmHg (32.0-45.0) L 12/24/16 13:39 pO2 59.2 mmHg (83.0-108.0) L 12/24/16 13:39 HCO3 20.1 mmol/L (21.0-28.0) L 12/24/16 13:39 Total CO2 20.9 mmol/L (19.0-24.0) 12/24/16 13:39 Base Excess -0.2 mmol/L (-2.0-3.0) 12/24/16 13:39 ABG pH 7.55 (7.35-7.45) H 12/24/16 13:39 ABG O2 Sat (Measured) 94.1 % (94.0-98.0) 12/24/16 13:39 Sodium 132 mmol/L (132-142) 12/24/16 13:56 Plasma Sodium 132 mmol/L (130-142) 12/24/16 13:56 Potassium 3.7 mmol/L (3.4-4.6) 12/24/16 13:56 Chloride 96 mmol/L (97-106) L 12/24/16 13:56 Carbon Dioxide 22.3 mmol/L (24-32.6) L 12/24/16 13:56 Anion Gap 17.4 mmol/L (6.8-13.8) H 12/24/16 13:56 BUN 8 mg/dL (3-23) 12/24/16 13:56 Creatinine 0.65 mg/dL (0.4-1.4) 12/24/16 13:56 Est GFR (Non-Af Amer) 100 mL/min (60-130) 12/24/16 13:56 BUN/Creatinine Ratio 12.3 (9.0-21.6) 12/24/16 13:56 Random Glucose 114 mg/dL (70-110) H 12/24/16 13:56 Lactic Acid, Venous 1.0 mmol/L (0.4-1.9) 12/24/16 13:56 Calcium 8.3 mg/dL (7.9-10.9) 12/24/16 13:56 Calcium Adj for Albumin 8.6 mg/dL (8.4-10.2) 12/24/16 13:56 Total Bilirubin 0.7 mg/dL (0.0-1.1) 12/24/16 13:56 AST 94 U/L (0-48) H 12/24/16 13:56 ALT 61 U/L (19-67) 12/24/16 13:56 Alkaline Phosphatase 156 U/L (50-170) 12/24/16 13:56 Ammonia Less than 17.0 mcmol/L (11-35) 12/24/16 13:40 Troponin I 0.025 ng/ml (0.00-0.10) 12/24/16 15:51 B-Natriuretic Peptide 942 pg/mL (5-205) H 12/24/16 13:56 Total Protein 7.3 gm/dL (6.2-8.2) 12/24/16 13:56 Albumin 3.2 gm/dl (3.4-5.0) L 12/24/16 13:56 Urine Color Yellow 12/24/16 15:58 Urine Appearance Clear 12/24/16 15:58 Urine pH 6.0 pH (5.0-7.0) 12/24/16 15:58 Ur Specific [place] 1.020 SP.GR. (1.005-1.010) 12/24/16 15:58 Urine Protein Negative mg/dL (NEGATIVE) 12/24/16 15:58 Urine Glucose (UA) Negative mg/dL (NEGATIVE) 12/24/16 15:58 Urine Ketones 50 mg/dL (NEGATIVE) 12/24/16 15:58 Urine Blood Negative /ul (NEGATIVE) 12/24/16 15:58 Urine Nitrate Negative (NEGATIVE) 12/24/16 15:58 Urine Bilirubin Negative mg/dl (NEGATIVE) 12/24/16 15:58 Urine Urobilinogen Normal EU/dl (NORMAL) 12/24/16 15:58 Ur Leukocyte Esterase Negative /ul (NEGATIVE) 12/24/16 15:58 Urine RBC None seen /hpf (0-5) 12/24/16 15:58 Urine WBC None seen /hpf (0-5) 12/24/16 15:58 Ur Epithelial Cells 0-5 /hpf (0-5) 12/24/16 15:58 Urine Bacteria None seen (NONE) 12/24/16 15:58 Urine Culture Comments No culture indicated 12/24/16 15:58 Urine Opiates Screen Negative (NEGATIVE) 12/24/16 Unknown Barbiturate Screen Negative (NEGATIVE) 12/24/16 Unknown Ur Phencyclidine Scrn Negative (NEGATIVE) 12/24/16 Unknown Urine Amphetamine Negative (NEGATIVE) 12/24/16 Unknown U Benzodiazepines Scrn Negative (NEGATIVE) 12/24/16 Unknown Urine Cocaine Screen Negative (NEGATIVE) 12/24/16 Unknown Urine Marijuana (THC) Negative (NEGATIVE) 12/24/16 Unknown Ethyl Alcohol Less than 3.0 mg/dL (0.0-10.0) 12/24/16 13:56 CT head: No acute intra-cranial hemorrhage or mass effect. CXR: midly increased lung marking, correlate for diffuse pneumonitis or mild interstitial edema. Assessment/Plan - Narrative Narrative: Fever of unknown origin On adm Temp 38.2---->38.2 pt report headache, denies nuchal rigidity and family stated her confusion is new No observed source of infection CT head: No acute intra-cranial hemorrhage or mass effect. CXR: midly increased lung marking, correlate for diffuse pneumonitis or mild interstitial edema. Blood culture pending Urinalysis noted ? Consider lumbar puncture Altered mental status Family reports of confusion CT head: No acute intra-cranial hemorrhage or mass effect. Plan same as #1 Seizure pt have been non-complaint with medication regimen IV Keppra given in ER Will continue with home dose and monitor. pad side rails and safety measures while hospitalized COPD Continue with hose dose of neb treatments supplement oxygen PRN CHF euvolemic BNP 942---> ? may consider obtaining 2D-echo lasix 20mg x1 given in ER Monitor I/O and weight pt daily Code status: Full GI ppx: pepcid VTE ppx: SCD and ambulate Time 40 minutes, previous records reviewed and case discussed with Dr Bates. - Assessment/Plan (1) Alcoholic fatty liver Problem: Chronic (2) CHF (congestive heart failure) Problem: Acute Qualifiers: Congestive heart failure type: unspecified congestive heart failure type Congestive heart failure chronicity: acute Qualified Code(s): I50.9 - Heart failure, unspecified (3) Noncompliance w/medication treatment due to intermit use of medication Problem: Chronic (4) Seizure Problem: Chronic Qualifiers: Convulsion type: unspecified Qualified Code(s): R56.9 - Unspecified convulsions (5) COPD (chronic obstructive pulmonary disease) Problem: Chronic (6) Fever of unknown origin Problem: Acute
[2016-12-24] MEDS ORDERED: ALPRAZolam 1 MG TABLET PO PRN (20:44)
[2016-12-24] MEDS ORDERED: ALBUTEROL SULFATE 200 PUFF INHALER IH PRN (20:44)
[2016-12-24] MEDS ORDERED: ALBUTEROL SULFATE/IPRATROPIUM 3 ML NEBU IH PRN (20:44)
[2016-12-25] MEDS: ACETAMINOPHEN 500 MG TABLET PO PRN ×3 (02:52→21:28)
[2016-12-25] MEDS: HYDROcodone/ACETAMINOPHEN 1 EACH TABLET PO PRN ×2 (04:44→18:13)
[2016-12-25] MEDS ORDERED: ALBUTEROL SULFATE 2.5 MG/0.5 ML VIAL.NEB IH PRN (06:30)
[2016-12-25] MEDS ORDERED: LORazepam 2 MG/ML DISP.SYRIN IV STA (08:47)
[2016-12-25] MEDS ORDERED: levETIRAcetam 500 MG TABLET PO SCH (09:00)
[2016-12-25 09:50] LABS: CSF Appearance Clear (CLEAR); CSF Color Colorless (COLORLESS); CSF RBC 0 /uL (0-10); CSF RBC 10 /uL (0-10); CSF WBC 5 /uL (0-10); CSF WBC 8 /uL (0-10)
--- NOTE | 2016-12-25 10:01 | PROC NOTE ---
ED Procedures - Additional Procedures Additional Procedures: lumbar puncture Progress: DATE OF PROCEDURE: 12/25/2016 PHYSICIAN PERFORMING PROCEDURE: Cesia Otto DO PROCEDURE: Lumbar Puncture INDICATION: Fever, headache, concern for meningitis ANESTHESIA: 3cc local 1% lidocaine with epi DESCRIPTION OF PROCEDURE: The potential risks and complications of the procedure were discussed with the patient and proper consent was obtained prior to the procedure. The area was prepped and draped in the usual sterile fashion. Using landmarks, a 22-gauge spinal needle was inserted in the L4-L5 space and 4 tubes each containing approximately 2cc of clear spinal fluid was collected and sent for analysis. The patient tolerated the procedure well without any apparent difficulties or complications. COMPLICATIONS: No immediate complications noted.
--- NOTE | 2016-12-25 10:58 | DS ---
(1) Seizure disorder Problem: Chronic (2) Fever Problem: Acute (3) Headache Problem: Acute (4) Noncompliance w/medication treatment due to intermit use of medication Problem: Chronic (5) Alcohol use disorder Problem: Chronic Description of Stay: ADMISSION DATE: 12/24/2016 DISCHARGE DATE: 12/25/2016 ADMISSION HPI by CINDY Mixon: 56 years old White female adm to the hospital from ER with reports of altered mental status. PMH significant for COPD, asthma, anxiety, GERD, alcohol abuse, hypertension, DVT and hypothyroidism. Press Breaker Unable to obtain information from pt due to medical state. Information obtained from nurses and ER record. Per nurse pt was seen in PCP office earlier today and sent to the [facility] for IVF bolus due to dehydration. While in the annex she got confused and was then sent to the ER. In ER CT head: No acute intra-cranial hemorrhage or mass effect. CXR : midly increased lung marking, correlate for diffuse pneumonitis or mild interstitial edema. Lasix 20mg x1 given and Keppra. per ER records pt have not been taking her medications at home and confusion is a new symptom per relative. Will adm OBV and continue work up. HOSPITAL COURSE: The patient was admitted to the hospital with acute encephalopathy and fever. Extensive workup was completed including a lumbar puncture and essentially in her entire workup was unrevealing. The patient does admit that she was not taking her seizure medication for at least 3 days prior to her admission. It is quite possible that she had an unwitnessed seizure and this is the source of her presenting symptoms. The time of discharge, the patient was back to baseline and she was discharged home in stable condition. FOLLOW-UP APPOINTMENTS: -PCP, Dr. Otto, within 1-2 weels NEW OR CHANGED MEDICATIONS: None DISCONTINUED MEDICATIONS: None RADIOLOGY REPORTS: Single view chest x-ray on 12/24/2016 showed: No focal acute cardiopulmonary finding. Mildly increased lung markings noted. Correlate clinically for diffuse pneumonitis or mild interstitial edema. Hyperinflated lungs. Correlate clinically. Head CT without contrast on 12/24/2016 showed: No acute intracranial hemorrhage or mass effect. Trace right maxillary sinus fluid. Consider sinusitis. Transthoracic 2-D echocardiogram on 12/25/2016 showed: Left ventricle: Normal size. Borderline concentric left ventricular hypertrophy. Ejection fraction normal at 65-70%. Wall motion is normal. Right ventricle: Normal size. Normal wall thickness. Atria: The left atrial and right atrial size is normal. Mitral valve: Possible diastolic dysfunction. No prolapse. No stenosis. No regurgitation. Tricuspid valve: Not well visualized. Trace regurgitation. Right ventricular systolic pressure is elevated at 33 mmHg. Aortic valve: Sclerosis without stenosis. No regurgitation. Pulmonic valve: Not well visualized. No regurgitation. Great vessels: Aortic root is normal size. Pericardium/plan: No pericardial effusion. Procedures Performed: see notes below List Procedures: DATE OF PROCEDURE: 12/25/2016 PHYSICIAN PERFORMING PROCEDURE: eCsia Otto DO PROCEDURE: Lumbar Puncture INDICATION: Fever, headache, concern for meningitis ANESTHESIA: 3cc local 1% lidocaine with epi DESCRIPTION OF PROCEDURE: The potential risks and complications of the procedure were discussed with the patient and proper consent was obtained prior to the procedure. The area was prepped and draped in the usual sterile fashion. Using landmarks, a 22-gauge spinal needle was inserted in the L4-L5 space and 4 tubes each containing approximately 2cc of clear spinal fluid was collected and sent for analysis. The patient tolerated the procedure well without any apparent difficulties or complications. COMPLICATIONS: No immediate complications noted. Results and Findings: Laboratory Tests 12/24/16 12/24/16 12/25/16 13:56 Unknown 09:30 CSF Appearance Clear CSF Color Colorless CSF WBC 5 CSF RBC 10 CSF Neutrophils 10 H CSF Lymphocytes 90 CSF Glucose CSF Total Protein CSF [place] IgG Ab CSF [place] IgM Ab Urine Opiates Screen Negative Barbiturate Screen Negative Ur Phencyclidine Scrn Negative Urine Amphetamine Negative U Benzodiazepines Scrn Negative Urine Cocaine Screen Negative Urine Marijuana (THC) Negative Ethyl Alcohol Less than 3.0 Herpes Simplex DNA PCR HSV II DNA PCR 12/25/16 12/25/16 12/25/16 09:30 09:30 09:30 CSF Appearance CSF Color CSF WBC CSF RBC CSF Neutrophils CSF Lymphocytes CSF Glucose 72 CSF Total Protein 35.2 CSF [place] IgG Ab <1.30 CSF [place] IgM Ab <0.90 Urine Opiates Screen Barbiturate Screen Ur Phencyclidine Scrn Urine Amphetamine U Benzodiazepines Scrn Urine Cocaine Screen Urine Marijuana (THC) Ethyl Alcohol Herpes Simplex DNA PCR Not detected HSV II DNA PCR Not detected 12/25/16 09:30 CSF Appearance Clear CSF Color Colorless CSF WBC 8 CSF RBC 0 CSF Neutrophils 12 H CSF Lymphocytes 88 CSF Glucose CSF Total Protein CSF [place] IgG Ab CSF [place] IgM Ab Urine Opiates Screen Barbiturate Screen Ur Phencyclidine Scrn Urine Amphetamine U Benzodiazepines Scrn Urine Cocaine Screen Urine Marijuana (THC) Ethyl Alcohol Herpes Simplex DNA PCR HSV II DNA PCR Discharge Disposition: Home self care Disposition: Home self-care Condition: Stable Discharge Activity: Activity as tolerated Discharge Diet: General/regular food, Low salt Problem Oriented Discharge Instructions to Patient/Family: Fever, Adult, General Headache Without Cause, [id number] Additional Patient Instructions (free text): Follow-up with PCP, Dr. Otto, within 1-2 weeks on 01-02-17 @ 4:00pm Complete Home Medications List: Complete Home Medication List: ALPRAZolam [Xanax] 1 mg PO TID PRN 04/30/15 levETIRAcetam [Keppra] 500 mg PO BID 03/12/16 Albuterol Sulfate [Proair Hfa] 2 puff IH Q4H PRN 12/24/16 Albuterol Sulfate/Ipratropium [Duoneb 2.5-0.5MG/3ML Soln] 3 ml IH Q4H PRN HYDROcodone/ACETAMINOPHEN [Hydrocodon-Acetaminophen 5-325] 1 each PO Q4H PRN 10/02
[2016-12-25 11:49] LABS: CSF Lymphocytes 88 % (0-100); CSF Lymphocytes 90 % (0-100)
[2016-12-25 15:09] VITALS: BP 114/64
[2016-12-26 23:54] LABS: WNV IgG Ab <1.30 index
[2016-12-29 07:11] LABS: HSV 2 DNA NOT DETECTED
--- NOTE | 2016-12-29 11:09 | ECHO ---
This report is available in the EMR
[2017-01-01 08:05] LABS: CSF VDRL NON-REACTIVE (NON-REACTIVE)
== END 2016-12-25 21:31 | disposition home or self-care (01) ==
LOC: ER 13:21 → UNDOADMOB 16:40 → MS 16:40
PROVIDERS: ADMIT Internal Medicine; ATTEND Internal Medicine
PROC: 009U3ZX Drainage of Spinal Canal, Percutaneous Approach, Diagnostic (ICD-10-PCS; principal; 2016-12-25)
DX: G40.909 Epilepsy, unspecified, not intractable, without status epilepticus (principal); R50.9 Fever, unspecified; R41.82 Altered mental status, unspecified; E86.0 Dehydration; Z91.128 Patient's intentional underdosing of medication regimen for other reason; K70.0 Alcoholic fatty liver; F10.20 Alcohol dependence, uncomplicated; I50.9 Heart failure, unspecified; J44.9 Chronic obstructive pulmonary disease, unspecified; F17.210 Nicotine dependence, cigarettes, uncomplicated; E03.9 Hypothyroidism, unspecified; E78.5 Hyperlipidemia, unspecified
CPT/HCPCS: 36415; 36600; 62270; 70450; 71010; 80053; 80307; 81001; 82140; 82803; 82945; 83605; 83880; 84157; 84484; 85025; 86592; 86644; 86645; 86787; 86788; 86789; 87040; 87070; 87529; 87798; 89051; 93005; 93306; 94640; 94760; 96360; 96365; 96375; 99285; G0378; G0481

== ENCOUNTER 2017-03-20 14:00 | Emergency (ER) | payer MEDICARE, MEDICAID ==
[2017-03-20] MEDS ORDERED: MULTIVIT INFUSN,ADULT 4,VIT K 10 ML, THIAMINE HCL 100 MG in NORMAL SALINE 1,000 ML IV SCH (14:30)
[2017-03-20 14:41] LABS: Hematocrit 40.8 % (37.0-47.0); Hemoglobin 14.6 gm/dL (12.5-16.0); Mean Cell Volume 104.1 fl (78-100); Mean Corpuscular Hemoglobin 37.2 pg (27-31); Mean Corpuscular Hgb Conc 35.8 g/dl (32-36); Neutrophil # 3.4 K/mm3 (1.3-6.0); Neutrophil % 47.6 % (42-75.0); Platelet Count 228 K/mm3 (150-450); Red Blood Count 3.92 M/mm3 (4.2-5.4); Red Cell Distribution Width 12.9 % (11.5-14.0); White Blood Count 7.2 K/mm3 (4.0-10.5)
[2017-03-20 15:05] LABS: ALT 74 U/L (19-67); AST 183 U/L (0-48); Albumin * 3.2 gm/dl (3.4-5.0); Alkaline Phosphatase * 196 U/L (50-170); Anion Gap 10.9 mmol/L (6.8-13.8); BUN/Creatinine Ratio 6.1 (9.0-21.6); Bilirubin, Total 0.6 mg/dL (0.0-1.1); Blood Urea Nitrogen 3 mg/dL (3-23); Ca. Corrected For Albumin 8.4 mg/dL (8.4-10.2); Calcium * 8.1 mg/dL (7.9-10.9); Carbon Dioxide 27.7 mmol/L (24-32.6); Chloride 102 mmol/L (97-106); Glucose * 118 mg/dL (70-110); Potassium 3.6 mmol/L (3.4-4.6); Salicylate Less than 2.8 mg/dL (2.8-20.0); Sodium 137 mmol/L (132-142); TSH * 3.992 uIU/mL (0.358-3.74); Total Protein 7.4 gm/dL (6.2-8.2)
--- NOTE | 2017-03-20 16:40 | ERNOTE ---
Medical Problem HPI - Narrative Date of Service: 03/20/17 - General Chief Complaint: Alcohol Intoxication Time Seen by Provider: 03/20/17 14:17 Source: patient Exam Limitations: intoxication - Immun/Allergies/Home Medications Immunizations: IMMUNIZATION HX Immunizations Up to Date Yes History of Influenza Vaccine No Hx Pneumococcal Vaccination No Allergies/Adverse Reactions: Allergies phenobarbital Allergy (Intermediate, Verified 03/20/17 14:14) seizure amoxicillin trihydrate [From Augmentin] Adverse Reaction (Mild, Verified 14:14) Vomiting egg Adverse Reaction (Mild, Verified 03/20/17 14:14) runny nose ibuprofen Adverse Reaction (Mild, Verified 03/20/17 14:14) Vomiting potassium clavulanate [From Augmentin] Adverse Reaction (Mild, Verified 14:14) Vomiting promethazine HCl [From Phenergan] Adverse Reaction (Mild, Verified 03/20/17 14: 14) Vomiting Home Medications: HOME MEDICATIONS ALPRAZolam [Xanax] 1 mg PO TID PRN 04/30/15 [Last Taken Unknown] levETIRAcetam [Keppra] 500 mg PO BID 03/12/16 [Last Taken Unknown] Albuterol Sulfate [Proair Hfa] 2 puff IH Q4H PRN 12/24/16 [Last Taken Unknown] Albuterol Sulfate/Ipratropium [Duoneb 2.5-0.5MG/3ML Soln] 3 ml IH Q4H PRN [Last Taken Unknown] HYDROcodone/ACETAMINOPHEN [Hydrocodone-Acetamin 5-325 mg] 1 each PO Q4H PRN 10/02 [Last Taken Unknown] - History of Present History Narrative: Patient presents to the ED for alcohol problems. She was brought in by a friend. She denies any specific complaints to me. She denies any CP or SOB. No abdominal pain. No vomiting. Last drink today. She denies suicidal or homicidal ideation. She denies trauma. Denies any withdrawal symptoms at this time. Timing: constant Modifying Factors - (Improves): Present: other - nothing Modifying Factors - (Worsens): Present: other - nothing Review of Systems - Review of Systems Constitutional: Absent: fever ENT: Absent: sore throat Respiratory: Absent: shortness of breath Cardiology: Absent: chest pain Gastrointestinal/Abdominal: Absent: vomiting, abdominal pain Genitourinary: Absent: dysuria Skin: Absent: rash Neurological: Absent: weakness Psych: Present: other - no suicidal ideation or homicidal ideation - Patient's Past Medical History Patient History - Medical: Alcohol Abuse, Anxiety, GERD, Hypothyroidism, Osteoarthritis, Seizures, Other Patient History - Cardiac/Respiratory: Asthma, COPD, Deep Vein Thrombosis, Hypertension, Hyperlipidemia Patient History - Cancer: No Hx of Cancer Patient History - Surgical Procedures: Cholecystectomy, Other Patient History - Other: None LMP (females 10-50): post men - Family History Mother Family History - Medical: , History Unknown Family History - Cardiac/Respiratory: History Unknown Family History - Cancer: Other Father Family History - Medical: Family History - Cardiac/Respiratory: Hypertension, Myocardial Infarction Family History - Cancer: No pertinent family hx - Social History Living Situations: home Abuse History: No History of abuse Psych History: Hx of Anxiety Smoking Status: Current every day smoker Alcohol Use: heavy Drug Use: none - Immunizations Immunizations Up to Date: Yes Hx Pneumococcal Vaccination: No History of Influenza Vaccine: No Physical Exam - Physical Exam Narrative: Denies suicidal ideation or homicidal ideation. General Appearance: Present: alert, no apparent distress, other - does smell of alcohol Head Exam: Present: normal inspection, no evidence of injury Eye Exam: Normal inspection: bilateral, PERRL: bilateral Ears, Nose, Throat: Present: normal ENT inspection Neck: Present: normal inspection Respiratory: Present: no respiratory distress, normal breath sounds, no accessory muscle use, lungs clear Cardiovascular/Chest: Present: regular rate, rhythm, normal peripheral pulses Gastrointestinal/Abdominal: Present: normal bowel sounds, nontender, nondistended, soft, no organomegaly Back Exam: Present: normal range of motion Extremity Exam: Present: other - no deformity Neurological Exam: Present: alert, no motor/sensory deficits, cone chocolate dipper II-XII nml as tested. Absent: motor weakness Skin Exam: Present: normal color, warm/dry ED Progress - Results and Orders Patient's Lab Results:: I have reviewed the patient's lab results. - Vital Signs Patient's Vital Signs:: I have reviewed the patient's vital signs. Vital Signs: Vital Signs 03/20/17 03/20/17 14:07 16:11 Temperature 36.6 C Pulse Rate 80 72 Respiratory 16 15 Rate Blood Pressure 123/71 120/70 O2 Sat by Pulse 95 96 Oximetry - Progress/Reassessment Chief Complaint: Alcohol Intoxication Progress Note-Subjective: 03/20/17 16:37 Patient is requesting to go home. Dr Otto did speak with her in the ED. She does not want to go to treatment. She is requesting to go home. Family is going to come for her. I want her observed and she will be watched here until family can watch her. I have no reasons to keep her against her will that I can find at this time. No SI or HI. She does not want alcohol treatment at this time. 03/20/17 18:02 Departure Clinical Impression: Alcohol intoxication - Departure Disposition: Home self-care Condition: Stable Instructions: Alcohol Intoxication, [id number] Additional Instructions: Rest. Fluids. Follow-up with Dr Otto Thursday for a re-check. Return for pain , if you change your mind about treatment, if you develop thoughts of harming yourself or others or if your condition worsens or changes in any way.
[2017-03-20 18:03] VITALS: BP 112/87
== END 2017-03-20 18:03 | disposition home or self-care (01) ==
LOC: ER 14:00
DX: F10.129 Alcohol abuse with intoxication, unspecified (principal); Z86.718 Personal history of other venous thrombosis and embolism; F17.200 Nicotine dependence, unspecified, uncomplicated
CPT/HCPCS: 36415; 80053; 83690; 84443; 85025; 99282; G0480; G0481

== ENCOUNTER 2017-04-17 22:27 | Emergency (ER) | payer MEDICARE, MEDICAID ==
[2017-04-17] MEDS ORDERED: METHYLPREDNISOLONE SOD SUCC/PF 125 MG/2 ML VIAL IV ONE (22:41)
[2017-04-17] MEDS ORDERED: ALBUTEROL SULFATE 2.5 MG/0.5 ML VIAL.NEB IH ONE ×4 (22:41→23:45)
[2017-04-17] MEDS ORDERED: METHYLPREDNISOLONE SOD SUCC/PF 125 MG/2 ML VIAL ONE (22:46)
[2017-04-17 23:09] LABS: Hemoglobin 17.2 gm/dL (12.5-16.0); Mean Cell Volume 102.9 fl (78-100); Mean Corpuscular Hemoglobin 36.1 pg (27-31); Mean Corpuscular Hgb Conc 35.1 g/dl (32-36); Mean Platelet Volume 8.9 fl (6.0-9.5); Neutrophil # 6.4 K/mm3 (1.3-6.0); Neutrophil % 67.1 % (42-75.0); Platelet Count 275 K/mm3 (150-450); Red Blood Count 4.76 M/mm3 (4.2-5.4); Red Cell Distribution Width 12.5 % (11.5-14.0); White Blood Count 9.5 K/mm3 (4.0-10.5)
[2017-04-17 23:22] LABS: Urine Bilirubin Negative (NEGATIVE); Urine Blood Negative /ul (NEGATIVE); Urine Ketone Negative (NEGATIVE); Urine Nitrite Negative (NEGATIVE); Urine Protein Negative (NEGATIVE); Urine Specific Gravity <=1.005 SP.GR. (1.005-1.010); Urine Urobilinogen Normal (NORMAL)
[2017-04-17 23:29] LABS: ALT 37 U/L (19-67); AST 63 U/L (0-48); Albumin * 3.3 gm/dl (3.4-5.0); Alkaline Phosphatase * 137 U/L (50-170); BUN/Creatinine Ratio 9.1 (9.0-21.6); Bilirubin, Total 0.6 mg/dL (0.0-1.1); Blood Urea Nitrogen 6 mg/dL (3-23); CRP 0.3 mg/dL (0.0-0.9); Ca. Corrected For Albumin 8.6 mg/dL (8.4-10.2); Calcium * 8.4 mg/dL (7.9-10.9); Carbon Dioxide 25.4 mmol/L (24-32.6); Chloride 101 mmol/L (97-106); Glucose * 97 mg/dL (70-110); Potassium 3.4 mmol/L (3.4-4.6); Sodium 141 mmol/L (132-142); Total Protein 7.4 gm/dL (6.2-8.2); Troponin I Less than 0.017 ng/ml (0.00-0.10)
[2017-04-17 23:32] LABS: Urine Appearance Clear; Urine Color Yellow
[2017-04-17 23:33] LABS: Urine Bacteria None Seen; Urine RBC None Seen /hpf (0-5); Urine WBC None Seen /hpf (0-5)
[2017-04-17 23:44] LABS: Cocaine Ur Negative (NEGATIVE); Urine Barbiturate Negative (NEGATIVE); Urine Benzodiazepines Negative (NEGATIVE); Urine Opiates Negative (NEGATIVE); Urine PCP Negative (NEGATIVE); Urine THC Negative (NEGATIVE)
[2017-04-18 00:07] VITALS: BP 109/79
--- NOTE | 2017-04-18 00:26 | ERNOTE ---
Dyspnea - Date Date of Service: 04/18/17 - General Presenting Symptoms: shortness of breath, difficulty of breathing, wheezing Time Seen by Provider: 04/17/17 22:41 Source: patient Exam Limitations: no limitations - Immun/Allergies/Home Medications Immunizations: IMMUNIZATION HX Immunizations Up to Date Yes History of Influenza Vaccine No Hx Pneumococcal Vaccination No Allergies/Adverse Reactions: Allergies phenobarbital Allergy (Intermediate, Verified 03/20/17 14:14) seizure amoxicillin trihydrate [From Augmentin] Adverse Reaction (Mild, Verified 14:14) Vomiting egg Adverse Reaction (Mild, Verified 03/20/17 14:14) runny nose ibuprofen Adverse Reaction (Mild, Verified 03/20/17 14:14) Vomiting potassium clavulanate [From Augmentin] Adverse Reaction (Mild, Verified 14:14) Vomiting promethazine HCl [From Phenergan] Adverse Reaction (Mild, Verified 03/20/17 14: 14) Vomiting Home Medications: HOME MEDICATIONS ALPRAZolam [Xanax] 1 mg PO TID PRN 04/30/15 [Last Taken Unknown] levETIRAcetam [Keppra] 500 mg PO BID 03/12/16 [Last Taken Unknown] Albuterol Sulfate [Proair Hfa] 2 puff IH Q4H PRN 12/24/16 [Last Taken Unknown] Albuterol Sulfate/Ipratropium [Duoneb 2.5-0.5MG/3ML Soln] 3 ml IH Q4H PRN [Last Taken Unknown] HYDROcodone/ACETAMINOPHEN [Hydrocodone-Acetamin 5-325 mg] 1 each PO Q4H PRN 10/02 [Last Taken Unknown] Doxycycline Hyclate [Vibratab] 100 mg PO BID #20 tab 04/18/17 [Last Taken Unknown] predniSONE [Prednisone] 1 tab PO TID #15 tab 04/18/17 [Last Taken Unknown] - History of Present Illness Narrative: patient with known hx of copd has become more sob over last 24 hours Severity: moderate Treatment MOVIE CRITIC: by patient, paramedics Initiating event: Reports: upper resp illness Frequency of episodes: Reports: frequent episodes Modifying Factors - (Improves): Reports: albuterol, rest Modifying Factors (Worsens): Reports: activity Associated Symptoms-Dyspnea: Reports: wheezing, dizziness, lightheadedness, weakness Prior Treatment: Reports: recently seen, treated by physician Review of Systems - Narrative Narrative: hx of copd, chronic alcoholism - Review of Systems Constitutional: Present: See HPI, fatigue, malaise EYE: Present: no symptoms reported ENT: Present: no symptoms reported Respiratory: Present: See HPI, shortness of breath, cough, wheezing Cardiology: Present: no symptoms reported Gastrointestinal/Abdominal: Present: no symptoms reported Genitourinary: Present: no symptoms reported Musculoskeletal: Present: no symptoms reported Skin: Present: no symptoms reported Neurological: Present: no symptoms reported Endocrine: Present: no symptoms reported Hematologic/Lymphatic: Present: no symptoms reported Psych: Present: no symptoms reported All Other Systems: All systems neg except as marked - Narrative Narrative: unremarkable - Patient's Past Medical History Patient History - Medical: Alcohol Abuse, Anxiety, GERD, Hypothyroidism, Osteoarthritis, Seizures, Other Patient History - Cardiac/Respiratory: Asthma, COPD, Deep Vein Thrombosis, Hypertension, Hyperlipidemia Patient History - Cancer: No Hx of Cancer Patient History - Surgical Procedures: Cholecystectomy, Other Patient History - Other: None LMP (females 10-50): Menopausal - Family History Mother Family History - Medical: , History Unknown Family History - Cardiac/Respiratory: History Unknown Family History - Cancer: Other Father Family History - Medical: Family History - Cardiac/Respiratory: Hypertension, Myocardial Infarction Family History - Cancer: No pertinent family hx - Social History Living Situations: home Abuse History: No History of abuse Psych History: Hx of Anxiety Smoking Status: Current every day smoker Have you smoked in the past 12 months: Yes Do you dip or chew tobacco: No Alcohol Use: heavy Drug Use: none - Immunizations Immunizations Up to Date: Yes Hx Pneumococcal Vaccination: No History of Influenza Vaccine: No Physical Exam - Physical Exam General Appearance: Present: moderate distress Head Exam: Present: normal inspection, no evidence of injury Eye Exam: Normal inspection: bilateral, PERRL: bilateral, EOMI: bilateral Ears, Nose, Throat: Present: normal ENT inspection, normal pharynx Neck: Present: normal inspection, nontender Respiratory: Present: respiratory distress, rales, rhonchi, wheezing Cardiovascular/Chest: Present: regular rate, rhythm, no murmur, normal peripheral pulses Gastrointestinal/Abdominal: Present: normal bowel sounds, nontender, nondistended, soft, no organomegaly Back Exam: Present: normal inspection, normal range of motion, no CVA tenderness , no vertebral tenderness Extremity Exam: Present: normal inspection, non-tender, normal range of motion, no edema Neurological Exam: Present: alert, oriented, normal mood/affect, no motor/ sensory deficits Skin Exam: Present: normal color, warm/dry Lymphatic Exam: Present: no adenopathy ED Progress - Date and Time Seen: Date and Time: 04/18/17 00:22 patient improved labs and x-rays discussed with patient - Results and Orders Patient's Lab Results:: I have reviewed the patient's lab results. - Vital Signs Patient's Vital Signs:: I have reviewed the patient's vital signs. Vital Signs: Vital Signs 04/17/17 04/17/17 04/17/17 22:32 22:34 22:51 Temperature 36.9 C Pulse Rate 87 86 88 Respiratory 18 20 Rate Blood Pressure 112/72 O2 Sat by Pulse 97 98 Oximetry 04/17/17 04/17/17 04/17/17 23:06 23:35 23:47 Temperature 36.9 C Pulse Rate 90 88 94 Respiratory 18 18 18 Rate Blood Pressure 105/66 115/76 O2 Sat by Pulse 96 96 96 Oximetry 04/18/17 00:07 Temperature 36.9 C Pulse Rate 86 Respiratory 18 Rate Blood Pressure 109/79 O2 Sat by Pulse 97 Oximetry - EKG EKG: NSR EKG read: Interp. by me - X-Ray X-Ray #1 X-Ray: chest Interpretation: Interp. by me - copd - Progress/Reassessment Chief Complaint: Dyspnea Progress:: Improved - Transfer of Care Expected Disposition: Discharge Plan - Plan Plan: to be discharged Departure Clinical Impression: COPD (chronic obstructive pulmonary disease) with acute bronchitis - Departure Disposition: Home self-care Condition: Fair Instructions: Chronic Obstructive Pulmonary Disease Exacerbation, [id number] Referrals: Cesia Otto DO [Primary Care Provider] - Prescriptions: Doxycycline Hyclate [Vibratab] 100 mg PO BID #20 tab predniSONE [Prednisone] 1 tab PO TID #15 tab
== END 2017-04-18 00:34 | disposition home or self-care (01) ==
LOC: ER 22:27
DX: J44.0 Chronic obstructive pulmonary disease with (acute) lower respiratory infection (principal); J20.9 Acute bronchitis, unspecified; F17.200 Nicotine dependence, unspecified, uncomplicated; Z86.718 Personal history of other venous thrombosis and embolism
CPT/HCPCS: 36415; 36600; 71046; 80053; 80307; 81001; 82803; 84145; 84484; 85025; 86140; 87040; 87400; 93005; 94640; 94760; 96374; 99284; G0481

== ENCOUNTER 2017-10-13 23:51 | Observation (INO) ==
[2017-10-14] MEDS ORDERED: LORazepam 2 MG/ML DISP.SYRIN ONE ×2 (00:21→03:42)
[2017-10-14 00:27] LABS: Hematocrit 37.9 % (37.0-47.0); Hemoglobin 13.2 gm/dL (12.5-16.0); Mean Cell Volume 99.5 fl (78-100); Mean Corpuscular Hemoglobin 34.6 pg (27-31); Mean Corpuscular Hgb Conc 34.8 g/dl (32-36); Mean Platelet Volume 10.6 fl (8-12.5); Neutrophil # 5.6 K/mm3 (1.3-6.0); Neutrophil % 80.6 % (42-75.0); Platelet Count 132 K/mm3 (150-450); Red Blood Count 3.81 M/mm3 (4.2-5.4); Red Cell Distribution Width 15.5 % (11.5-14.0)
[2017-10-14] MEDS ORDERED: NORMAL SALINE 1,000 ML IV ONE ×2 (00:34→02:39)
[2017-10-14] MEDS ORDERED: LORazepam 2 MG/ML DISP.SYRIN IV ONE ×3 (00:34→03:45)
[2017-10-14 00:42] LABS: Albumin * 2.4 gm/dl (3.4-5.0); Anion Gap 11.8 mmol/L (6.8-13.8); BUN/Creatinine Ratio 5.2 (9.0-21.6); Bilirubin, Total 4.4 mg/dL (0.0-1.1); Ca. Corrected For Albumin 9.5 mg/dL (8.4-10.2); Calcium * 8.5 mg/dL (7.9-10.9); Carbon Dioxide 28.9 mmol/L (24-32.6); Potassium 2.7 mmol/L (3.4-4.6); Total Protein 6.9 gm/dL (6.2-8.2)
--- NOTE | 2017-10-14 00:53 | ERNOTE ---
Neuro HPI ER Record Presenting Symptoms: other - seizures Time Seen by Provider: 10/14/17 00:20 Source: family Immunizations: IMMUNIZATION HX Immunizations Up to Date Yes History of Influenza Vaccine Yes Hx Pneumococcal Vaccination No Allergies/Adverse Reactions: Allergies Allergy/AdvReac Type Severity Reaction Status Date / Time phenobarbital Allergy Intermediate seizure Verified 10/14/17 00:33 grass pollen Allergy Mild unknown Verified 10/14/17 00:33 house dust Allergy Mild unknown Verified 10/14/17 00:33 mold Allergy unknown Verified 10/14/17 00:33 amoxicillin trihydrate AdvReac Mild Vomiting Verified 10/14/17 00:33 [From Augmentin] egg AdvReac Mild runny nose Verified 10/14/17 00:33 ibuprofen AdvReac Mild Vomiting Verified 10/14/17 00:33 potassium clavulanate AdvReac Mild Vomiting Verified 10/14/17 00:33 [From Augmentin] promethazine HCl AdvReac Mild Vomiting Verified 10/14/17 00:33 [From Phenergan] Home Medications: HOME MEDICATIONS levETIRAcetam [Keppra] 500 mg PO BID 03/12/16 [Last Taken Unknown] Albuterol Sulfate [Proair Hfa] 2 puff IH Q4H PRN 12/24/16 [Last Taken Unknown] Folic Acid 1 mg PO DAILY 30 Days #30 tab 06/24/17 [Last Taken Unknown] Multivitamins [Multivitamin Tanisha] 1 cap PO DAILY 30 Days #30 cap 06/24/17 [ Last Taken Unknown] Pantoprazole Sodium [Protonix] 40 mg PO DAILY #30 tablet. 07/23/17 [Last Taken Unknown] ipratropium-albuterol 0.5 mg-3 mg(2.5 mg base)/3 mL nebulization soln 3 ml IH .COMPLEX 09/04/17 [Last Taken Unknown] alprazolam 1 mg tablet 1 mg PO QID PRN #120 tab 09/22/17 [Last Taken Unknown] furosemide 20 mg tablet 40 mg PO DAILY #60 tab 09/22/17 [Last Taken Unknown] sertraline 50 mg tablet 50 mg PO DAILY #30 tab 09/22/17 [Last Taken Unknown] - History of Present Illness Narrative: Pt brought by EMS due to frequent seizures at home. Pt's boyfriend states that she decided to stop drinking alcohol last Thursday and for the past 2 days has not been able to keep her seizure medicine down. Today she has had a seizure every 2 hours and had a seizure soon after arriving in the ED. Onset: continues in ER Severity: moderate - Character of Deficits Baseline Cognition: Present: alert, oriented x 4 Baseline Gait: Present: walks only w/ assistance Review of Systems - Review of Systems Constitutional: Present: fatigue, malaise. Absent: recent illness Respiratory: Absent: shortness of breath Cardiology: Absent: chest pain Gastrointestinal/Abdominal: Present: nausea, vomiting Genitourinary: Present: decreased urinary output Musculoskeletal: Present: muscle pain Skin: Absent: rash Neurological: Present: See HPI, seizure Endocrine: Present: excessive sweating Psych: Present: emotional problems Medical History (Last Reviewed 10/14/17 @ 05:22 by Roland Miranda DO) Tobacco abuse (Chronic) Onset Date: Unknown Osteoarthritis (Chronic) Onset Date: Unknown Macrocytosis without anemia (Chronic) Onset Date: 10/11/15 Hypothyroid (Chronic) Onset Date: 2013 Hyperlipidemia (Chronic) Onset Date: 04/04/16 Club foot (Chronic) Onset Date: Unknown Essential hypertension (Chronic) Onset Date: 10/11/15 Anxiety (Chronic) Onset Date: Unknown Cirrhosis of liver (Chronic) Onset Date: Unknown Alcohol abuse (Acute) Onset Date: 10/11/15 GERD (gastroesophageal reflux disease) (Chronic) Onset Date: Unknown Back pain (Chronic) Onset Date: Unknown Seizure (Chronic) Onset Date: 2013 COPD (chronic obstructive pulmonary disease) (Chronic) Onset Date: 10/12/16 Edema extremities Onset Date: Unknown Panic attacks Onset Date: Unknown Pneumonia Rib pain Onset Date: Unknown UTI (urinary tract infection) Surgical History: Surgical History (Last Reviewed 10/14/17 @ 05:23 by Roland Miranda DO) History of carpal tunnel release (Resolved) Onset Date: Unknown Alcohol intoxication Onset Date: Unknown H/O section Onset Date: Unknown History of colon surgery Onset Date: 2002 History of esophagogastroduodenoscopy Onset Date: Unknown History of lower leg fracture Onset Date: 02/04/13 Status post cholecystectomy Onset Date: Unknown ovarian surgery Onset Date: Unknown Family History: Family History (Last Reviewed 10/14/17 @ 00:33 by Ely Urias RN) Father Myocardial infarction Hypertension Mother Cancer, Onset Age: 63 Social History: Preferred Language Czech Do you have any confucianist or No cultural preference? Smoking Status Current every day smoker Have you smoked in the past 12 Yes months Do you dip or chew tobacco No Abuse History Hx of Substance Use Psych History Hx of Anxiety,Currently on Meds Alcohol Use heavy Physical Exam - Physical Exam General Appearance: Present: lethargic - -post ictal Head Exam: Present: normal inspection, no evidence of injury Eye Exam: Normal inspection: bilateral, PERRL: bilateral Ears, Nose, Throat: Present: normal ENT inspection Neck: Present: normal inspection, nontender Respiratory: Present: lungs clear Cardiovascular/Chest: Present: tachycardia Gastrointestinal/Abdominal: Present: normal bowel sounds, nondistended, soft Back Exam: Present: normal range of motion Extremity Exam: Present: normal inspection, normal range of motion Neurological Exam: Present: disoriented to place, disoriented to situation Skin Exam: Present: normal color, warm/dry Lymphatic Exam: Present: no adenopathy ED Progress - Results and Orders Patient's Lab Results:: I have reviewed the patient's lab results. Results and Orders: Laboratory Tests 10/14/17 10/14/17 10/14/17 00:20 00:20 00:20 WBC 7.0 Hgb 13.2 Hct 37.9 Plt Count 132 L Neutrophils % 80.6 H Sodium 135 Potassium 2.7 L Chloride 97 BUN 4 D Creatinine 0.77 Random Glucose 124 H Lactic Acid, Venous 2.3 H* Calcium 8.5 Total Bilirubin 4.4 H AST 208 H ALT 58 Alkaline Phosphatase 402 H Total Protein 6.9 Albumin 2.4 L 10/14/17 03:05 WBC Hgb Hct Plt Count Neutrophils % Sodium Potassium Chloride BUN Creatinine Random Glucose Lactic Acid, Venous 1.8 Calcium Total Bilirubin AST ALT Alkaline Phosphatase Total Protein Albumin - Vital Signs Patient's Vital Signs:: I have reviewed the patient's vital signs. Vital Signs: Vital Signs 10/13/17 23:57 Temperature 36.6 C Pulse Rate 108 H Respiratory Rate 16 Blood Pressure 71/21 L O2 Sat by Pulse Oximetry 95 - EKG EKG: supraventricular tachycardia, nonspecific ST T wave changes EKG read: Interp. by me - Progress/Reassessment Chief Complaint: Seizure Activity Progress:: Improved Progress Note-Subjective: Pt began to come out of her post ictal state and soon after she had another seizure. Pt had ativan and keppra IV after the 1st seizure and ativan after the second also. 10/14/17 03:[address] Otto she agrees with obs admit. Departure Clinical Impression: Noncompliance w/medication treatment due to intermit use of medication Alcohol withdrawal seizure Qualifiers: Complication of substance-induced condition: uncomplicated Qualified Code(s): F10.230 - Alcohol dependence with withdrawal, uncomplicated - Departure Disposition: Still a patient Condition: Good
[2017-10-14] MEDS: POTASSIUM CHLORIDE IN WATER 100 ML IV SCH ×3 (03:49→09:21)
[2017-10-14] MEDS ORDERED: LORazepam 2 MG/ML DISP.SYRIN IV PRN (05:56)
[2017-10-14] MEDS ORDERED: ALPRAZolam 1 MG TABLET PO PRN (08:34)
[2017-10-14] MEDS ORDERED: MULTIVIT INFUSN,ADULT 4,VIT K 10 ML, THIAMINE HCL 100 MG in DEXTROSE 5 % IN WATER 1,000 ML IV ONE ×3 (08:39)
[2017-10-14] MEDS ORDERED: ALBUTEROL SULFATE/IPRATROPIUM 3 ML NEBU IH SCH (08:45)
[2017-10-14] MEDS ORDERED: PANTOPRAZOLE SODIUM 40 MG TABLET.EC PO SCH (09:00)
[2017-10-14] MEDS: FOLIC ACID 1 MG TABLET PO SCH (11:07)
[2017-10-14] MEDS: POTASSIUM CHLORIDE 20 MEQ TABLET.SA PO SCH ×2 (11:07→16:47)
[2017-10-14] MEDS: MULTIVITAMINS 1 CAP CAPSULE PO SCH (11:08)
[2017-10-14] MEDS: levETIRAcetam 500 MG TABLET PO SCH ×2 (11:08→20:09)
[2017-10-14] MEDS: FUROSEMIDE 40 MG TABLET PO SCH (11:08)
[2017-10-14] MEDS: SERTRALINE HCL 50 MG TABLET PO SCH (11:08)
[2017-10-14] MEDS: THIAMINE HCL 100 MG TABLET PO SCH (11:08)
[2017-10-14] MEDS ORDERED: ONDANSETRON HCL/PF 2 MG/ML VIAL IV ONE (13:08)
[2017-10-14] MEDS ORDERED: ONDANSETRON HCL 4 MG TABLET PO PRN (13:38)
[2017-10-14] MEDS ORDERED: ONDANSETRON HCL/PF 2 MG/ML VIAL IV PRN (13:38)
[2017-10-14] MEDS ORDERED: SUCRALFATE 1 G/10 ML UDC PO ONE (13:40)
[2017-10-14] MEDS ORDERED: LIDOCAINE HCL 20 ML UDC PO ONE (13:40)
[2017-10-14] MEDS ORDERED: MAG HYDROX/ALUMINUM HYD/SIMETH 30 ML UDC PO ONE (13:40)
[2017-10-14] MEDS ORDERED: ACETAMINOPHEN 325 MG TABLET PO PRN (13:41)
[2017-10-14] MEDS ORDERED: KETOROLAC TROMETHAMINE 15 MG/ML VIAL IV PRN (13:42)
[2017-10-14] MEDS: ALBUTEROL SULFATE/IPRATROPIUM 3 ML NEBU IH PRN ×2 (14:50→19:07)
[2017-10-14] MEDS: FAMOTIDINE 20 MG TABLET PO SCH (20:09)
[2017-10-14] MEDS: PANTOPRAZOLE SODIUM 40 MG TABLET.EC PO SCH (20:09)
[2017-10-15] MEDS: ALBUTEROL SULFATE/IPRATROPIUM 3 ML NEBU IH PRN ×3 (00:21→11:31)
[2017-10-15] MEDS: PANTOPRAZOLE SODIUM 40 MG TABLET.EC PO SCH (07:13)
[2017-10-15 10:59] LABS: Albumin * 2.2 gm/dl (3.4-5.0); Anion Gap 12.5 mmol/L (6.8-13.8); BUN/Creatinine Ratio 11.6 (9.0-21.6); Bilirubin Direct 2.5 mg/dL (0.0-0.3); Bilirubin, Total 4.4 mg/dL (0.0-1.1); Bilirubin,Indirect 1.9 mg/dL (0.1-0.7); Calcium * 8.1 mg/dL (7.9-10.9); Carbon Dioxide 25.8 mmol/L (24-32.6); Estimated Creat Clear 73.5; Potassium 3.3 mmol/L (3.4-4.6); Total Protein 6.4 gm/dL (6.2-8.2)
[2017-10-15] MEDS: levETIRAcetam 500 MG TABLET PO SCH (11:05)
[2017-10-15] MEDS: FUROSEMIDE 40 MG TABLET PO SCH (11:05)
[2017-10-15] MEDS: FAMOTIDINE 20 MG TABLET PO SCH (11:20)
[2017-10-15] MEDS: SERTRALINE HCL 50 MG TABLET PO SCH (11:20)
[2017-10-15] MEDS: POTASSIUM CHLORIDE 20 MEQ TABLET.SA PO SCH ×2 (12:33→17:44)
--- NOTE | 2017-10-15 12:36 | HP ---
Chief Complaint - Chief Complaint Date of Service: 10/14/17 Time of Service: 08:30 Chief Complaint: Seizures, N/V History of Present Illness: The patient states that she has had N/V for the past week or so and she has been unable to keep much of anything down, especially her pills. She has a history of seizure disorder and is on keppra BID at home but she states that she does not think she has been able to keep her seizure medication down for the past week. She states she started having seizures yesterday so she was brought to the ED for further evaluation and treatment. She states she continues to feel uneasy in her stomach and feels nauseated, but denies any active vomiting since admission. She also denies any seizures since admission. She denies any significant abdominal pain. She denies any constipation or diarrhea. She denies any fevers or chills or known sick contacts. Medical History (Last Reviewed 10/14/17 @ 05:22 by Roland Miranda DO) Tobacco abuse (Chronic) Onset Date: Unknown Osteoarthritis (Chronic) Onset Date: Unknown Macrocytosis without anemia (Chronic) Onset Date: 10/11/15 Hypothyroid (Chronic) Onset Date: 2013 Hyperlipidemia (Chronic) Onset Date: 04/04/16 Club foot (Chronic) Onset Date: Unknown Essential hypertension (Chronic) Onset Date: 10/11/15 Anxiety (Chronic) Onset Date: Unknown Cirrhosis of liver (Chronic) Onset Date: Unknown Alcohol abuse (Chronic) Onset Date: 10/11/15 GERD (gastroesophageal reflux disease) (Chronic) Onset Date: Unknown Back pain (Chronic) Onset Date: Unknown Seizure (Chronic) Onset Date: 2013 COPD (chronic obstructive pulmonary disease) (Chronic) Onset Date: 10/12/16 Edema extremities Onset Date: Unknown Panic attacks Onset Date: Unknown Pneumonia Rib pain Onset Date: Unknown UTI (urinary tract infection) Surgical History: Surgical History (Last Reviewed 10/14/17 @ 05:23 by Roland Miranda DO) History of carpal tunnel release (Resolved) Onset Date: Unknown Alcohol intoxication Onset Date: Unknown H/O section Onset Date: Unknown History of colon surgery Onset Date: 2002 History of esophagogastroduodenoscopy Onset Date: Unknown History of lower leg fracture Onset Date: 02/04/13 Status post cholecystectomy Onset Date: Unknown ovarian surgery Onset Date: Unknown Family History: Family History (Last Reviewed 10/14/17 @ 00:33 by Ely Urias RN) Father Myocardial infarction Hypertension Mother Cancer, Onset Age: 63 Social History: Patient Lives/Resources Home Utilized Occupation Disabled Preferred Language Egyptian Do you have any faith or No cultural preference? Smoking Status Current every day smoker Have you smoked in the past 12 No months Do you dip or chew tobacco No Abuse History Hx of Substance Use Psych History Hx of Anxiety,Currently on Meds Alcohol Use heavy Review Of Systems (GEN) - Review of Systems Generalized/Overall Review: Present: Weakness, Fatigue EENTM: Present: No Symptoms Reported Respiratory: Present: Cough - chronic, Shortness of Breath - chronic, Wheezing - chronic Cardiac: Present: No Symptoms Reported Abdominal: Present: Nausea, Vomiting. Absent: Hematemesis, Abdominal Pain, Constipation, Diarrhea, Melena, Bright blood from rectum Genitourinary: Absent: Burning, Urgency, Frequency, Hesitancy Musculoskeletal: Present: Joint Pain - chronic, Back Pain - chronic Neurological: Present: Anxiety - chronic Misc: All systems neg except as marked Immunizations: IMMUNIZATION HX Immunizations Up to Date Yes History of Influenza Vaccine Yes Hx Pneumococcal Vaccination No Allergies/Adverse Reactions: Allergies Allergy/AdvReac Type Severity Reaction Status Date / Time phenobarbital Allergy Intermediate seizure Verified 10/14/17 00:33 grass pollen Allergy Mild unknown Verified 10/14/17 00:33 house dust Allergy Mild unknown Verified 10/14/17 00:33 mold Allergy unknown Verified 10/14/17 00:33 amoxicillin trihydrate AdvReac Mild Vomiting Verified 10/14/17 00:33 [From Augmentin] egg AdvReac Mild runny nose Verified 10/14/17 00:33 ibuprofen AdvReac Mild Vomiting Verified 10/14/17 00:33 potassium clavulanate AdvReac Mild Vomiting Verified 10/14/17 00:33 [From Augmentin] promethazine HCl AdvReac Mild Vomiting Verified 10/14/17 00:33 [From Phenergan] Home Medications: HOME MEDICATIONS levETIRAcetam [Keppra] 500 mg PO BID 03/12/16 [Last Taken Unknown] Albuterol Sulfate [Proair Hfa] 2 puff IH Q4H PRN 12/24/16 [Last Taken Unknown] Folic Acid 1 mg PO DAILY 30 Days #30 tab 06/24/17 [Last Taken Unknown] Multivitamins [Multivitamin Tanisha] 1 cap PO DAILY 30 Days #30 cap 06/24/17 [ Last Taken Unknown] Pantoprazole Sodium [Protonix] 40 mg PO DAILY #30 tablet.dr 07/23/17 [Last Taken Unknown] ipratropium-albuterol 0.5 mg-3 mg(2.5 mg base)/3 mL nebulization soln 3 ml IH .COMPLEX 09/04/17 [Last Taken Unknown] alprazolam 1 mg tablet 1 mg PO QID PRN #120 tab 09/22/17 [Last Taken Unknown] furosemide 20 mg tablet 40 mg PO DAILY #60 tab 09/22/17 [Last Taken Unknown] sertraline 50 mg tablet 50 mg PO DAILY #30 tab 09/22/17 [Last Taken Unknown] Famotidine [Pepcid] 20 mg PO BID #60 tab 10/15/17 [Last Taken Unknown] Ondansetron HCl [Zofran] 4 mg PO Q6H PRN #50 tab 10/15/17 [Last Taken Unknown] Potassium Chloride [K-Dur] 20 meq PO BIDWM #60 tablet.sa 10/15/17 [Last Taken Unknown] Exam - Exam Vital Signs: Vital Signs - Last Taken Temp 37.4 C 10/15/17 08:25 Pulse 125 H 10/15/17 11:31 Resp 26 H 10/15/17 11:31 BP 98/80 10/15/17 11:05 Pulse Ox 89 L 10/15/17 11:31 Constitutional: Present: Alert, Oriented x3, Cooperative, No distress, Looks Older than stated age ENT Exam: Present: hearing grossly normal, moist mucous membranes Eye Exam: bilateral eye: EOMI, scleral icterus Back Exam: Present: no CVA tenderness Respiratory: Present: expiration (prolonged), other - Diminished lung sounds bilaterally with intermittent expiratory wheezes noted Cardiovascular/Chest: Present: regular rate, rhythm Abdomen: Present: Normal bowel sounds, soft, nontender. Absent: guarding, rigidity, rebound tenderness, CVA tenderness Neurologic: Present: no motor/sensory deficits, alert, normal mood/affect, oriented x 3 Appearance: Present: no memory impairment Eye contact: Present: cooperative, good eye contact, normal speech Thoughts: Present: normal thought pattern, no apparent hallucination Diagnostic Studies: Abnormal Lab Results 10/15/17 Range/Units 10:15 Potassium 3.3 L (3.4-4.6) mmol/L Total Bilirubin 4.4 H (0.0-1.1) mg/dL Direct Bilirubin 2.5 H (0.0-0.3) mg/dL Indirect Bilirubin 1.9 H (0.1-0.7) mg/dL AST 135 H (0-48) U/L Alkaline Phosphatase 284 H (50-170) U/L Albumin 2.2 L (3.4-5.0) gm/dl Laboratory Results WBC 7.0 K/mm3 (4.0-10.5) 10/14/17 00:20 RBC 3.81 M/mm3 (4.2-5.4) L 10/14/17 00:20 Hgb 13.2 gm/dL (12.5-16.0) 10/14/17 00:20 Hct 37.9 % (37.0-47.0) 10/14/17 00:20 MCV 99.5 fl (78-100) 10/14/17 00:20 MCH 34.6 pg (27-31) H 10/14/17 00:20 MCHC 34.8 g/dl (32-36) 10/14/17 00:20 RDW 15.5 % (11.5-14.0) H 10/14/17 00:20 Plt Count 132 K/mm3 (150-450) L 10/14/17 00:20 MPV 10.6 fl (8-12.5) 10/14/17 00:20 Immature Gran % (Auto) 0.40 % (0.001-0.429) 10/14/17 00:20 Immature Gran # (Auto) 0.03 K/mm3 (0.000-0.0310) 10/14/17 00:20 Neutrophils % 80.6 % (42-75.0) H 10/14/17 00:20 Lymphocytes % 12.8 % (20-51) L 10/14/17 00:20 Monocytes % 5.4 % (0.0-9) 10/14/17 00:20 Eosinophils % 0.1 % (0.0-3.0) 10/14/17 00:20 Basophils % 0.7 % (0.0-1.0) 10/14/17 00:20 Nucleated RBC % 0.0 k/mm3 (0-1) 10/14/17 00:20 Neutrophils # 5.6 K/mm3 (1.3-6.0) 10/14/17 00:20 Lymphocytes # 0.90 k/mm3 (1.5-3.5) L 10/14/17 00:20 Monocytes # 0.4 k/mm3 (0.0-1.0) 10/14/17 00:20 Eosinophils # 0.0 k/mm3 (0.0-0.7) 10/14/17 00:20 Absolute Basophils 0.1 k/mm3 (0.0-0.1) 10/14/17 00:20 Sodium 137 mmol/L (132-142) 10/15/17 10:15 Plasma Sodium 137 mmol/L (130-142) 10/15/17 10:15 Potassium 3.3 mmol/L (3.4-4.6) L 10/15/17 10:15 Chloride 102 mmol/L (97-106) 10/15/17 10:15 Carbon Dioxide 25.8 mmol/L (24-32.6) 10/15/17 10:15 Anion Gap 12.5 mmol/L (6.8-13.8) 10/15/17 10:15 BUN 8 mg/dL (3-23) D 10/15/17 10:15 Creatinine 0.69 mg/dL (0.4-1.4) 10/15/17 10:15 Est GFR (Non-Af Amer) 93 mL/min (60-130) 10/15/17 10:15 BUN/Creatinine Ratio 11.6 (9.0-21.6) 10/15/17 10:15 Random Glucose 106 mg/dL (70-110) 10/15/17 10:15 Lactic Acid, Venous 1.8 mmol/L (0.4-2.0) 10/14/17 03:05 Calcium 8.1 mg/dL (7.9-10.9) 10/15/17 10:15 Calcium Adj for Albumin 9.5 mg/dL (8.4-10.2) 10/14/17 00:20 Total Bilirubin 4.4 mg/dL (0.0-1.1) H 10/15/17 10:15 Direct Bilirubin 2.5 mg/dL (0.0-0.3) H 10/15/17 10:15 Indirect Bilirubin 1.9 mg/dL (0.1-0.7) H 10/15/17 10:15 AST 135 U/L (0-48) H 10/15/17 10:15 ALT 45 U/L (19-67) 10/15/17 10:15 Alkaline Phosphatase 284 U/L (50-170) H 10/15/17 10:15 Total Protein 6.4 gm/dL (6.2-8.2) 10/15/17 10:15 Albumin 2.2 gm/dl (3.4-5.0) L 10/15/17 10:15 Assessment/Plan - Narrative Narrative: Admit to observation. Patient has a known seizure disorder and her recent seizures are secondary to her inability to take keppra due to N/V. Unclear cause of N/V but possibly related to chronic alcohol use. No vomiting and no seizures since admission. Restart oral keppra and continue nausea medications as needed. Start clear liquid diet and advance as tolerated. If patient remains seizure free and her nausea is controlled and she is able to take and keep PO medications down, we will plan to discharge her home tomorrow. - Assessment/Plan (1) Nausea and vomiting Problem: Acute (2) Seizure disorder Problem: Chronic (3) Alcohol use disorder Problem: Chronic (4) Anxiety Problem: Chronic (5) COPD (chronic obstructive pulmonary disease) Problem: Chronic
[2017-10-15] MEDS: FOLIC ACID 1 MG TABLET PO SCH (12:44)
[2017-10-15] MEDS: MULTIVITAMINS 1 CAP CAPSULE PO SCH (12:44)
[2017-10-15] MEDS: THIAMINE HCL 100 MG TABLET PO SCH (12:45)
--- NOTE | 2017-10-15 12:48 | DS ---
(1) Nausea and vomiting Problem: Acute (2) Seizure disorder Problem: Chronic (3) Hypokalemia Problem: Acute (4) Alcohol abuse Problem: Chronic (5) Liver cirrhosis, alcoholic Problem: Suspected Description of Stay: ADMISSION DATE: 10/14/2017 DISCHARGE DATE: 10/15/2017 ADMISSION HPI: The patient states that she has had N/V for the past week or so and she has been unable to keep much of anything down, especially her pills. She has a history of seizure disorder and is on keppra BID at home but she states that she does not think she has been able to keep her seizure medication down for the past week. She states she started having seizures yesterday so she was brought to the ED for further evaluation and treatment. She states she continues to feel uneasy in her stomach and feels nauseated, but denies any active vomiting since admission. She also denies any seizures since admission. She denies any significant abdominal pain. She denies any constipation or diarrhea. She denies any fevers or chills or known sick contacts. HOSPITAL COURSE: The patient was admitted to outpatient observation status for uncontrolled nausea and seizures. The patient has a known seizure disorder and her recent seizures prior to admission are secondary to her inability to take Keppra due to N/V. Unclear cause of N/V but possibly related to chronic alcohol use. Her home oral keppra dose was restarted and she was treated with nausea medications as needed. She was started on a clear liquid diet with instructions to advance diet as tolerated. The patient had no vomiting and no seizures during her hospital stay and prior to discharge, she was tolerating her diet and was able to take and keep all PO medications down without vomiting. The patient was discharged home in stable condition with instructions to resume home health care services at discharge. At follow-up, I will plan to order a liver ultrasound and ascites check to monitor the patients alcoholic liver disease. She will also be referred to general surgery for an EGD for further evaluation including variceal check. FOLLOW-UP APPOINTMENTS: -PCP, Dr. Otto, within 1-2 weeks -Resume services with [facility] -[facility] to draw BMP on 10/20/2017 week to monitor potassium level -Referral to General Surgery for EGD at follow-up NEW OR CHANGED MEDICATIONS: -Famotidine (Pepcid) 20mg PO BID -KCl 20 mEq PO BID with meals -Ondansetron (Zofran) 4mg PO Q6H PRN N/V -Take zofran 4mg at least twice daily 30 minutes before AM and PM medications DISCONTINUED MEDICATIONS: -None Procedures Performed: none Results and Findings: Lab Pending Results 10/14/17 00:20: WBC 7.0, RBC 3.81 L, Hgb 13.2, Hct 37.9, MCV 99.5, MCH 34.6 H, MCHC 34.8, RDW 15.5 H, Plt Count 132 L, MPV 10.6, Immature Gran % (Auto) 0.40, Immature Gran # (Auto) 0.03, Neutrophils % 80.6 H, Lymphocytes % 12.8 L, Monocytes % 5.4, Eosinophils % 0.1, Basophils % 0.7, Nucleated RBC % 0.0, Neutrophils # 5.6, Lymphocytes # 0.90 L, Monocytes # 0.4, Eosinophils # 0.0, Absolute Basophils 0.1 10/14/17 00:20: Sodium 135, Plasma Sodium 135, Potassium 2.7 L, Chloride 97, Carbon Dioxide 28.9, Anion Gap 11.8, BUN 4 D, Creatinine 0.77, Est GFR (Non-Af Amer) 82 D, BUN/Creatinine Ratio 5.2 L, Random Glucose 124 H, Calcium 8.5, Calcium Adj for Albumin 9.5, Total Bilirubin 4.4 H, AST 208 H, ALT 58, Alkaline Phosphatase 402 H, Total Protein 6.9, Albumin 2.4 L 10/14/17 00:20: Lactic Acid, Venous 2.3 H* 10/14/17 03:05: Lactic Acid, Venous 1.8 10/14/17 08:57: Potassium 2.8 L 10/15/17 10:15: Sodium 137, Plasma Sodium 137, Potassium 3.3 L, Chloride 102, Carbon Dioxide 25.8, Anion Gap 12.5, BUN 8 D, Creatinine 0.69, Est GFR (Non-Af Amer) 93, BUN/Creatinine Ratio 11.6, Random Glucose 106, Calcium 8.1, Total Bilirubin 4.4 H, Direct Bilirubin 2.5 H, Indirect Bilirubin 1.9 H, AST 135 H, ALT 45, Alkaline Phosphatase 284 H, Total Protein 6.4, Albumin 2.2 L Discharge Location: Home Disposition: Home Health Service [facility] Agency: [facility] Condition: Stable Face to Face Encounter completed per CMS Guidelines: Yes Discharge Activity: Activity as tolerated Discharge Diet: General/regular food, Low salt Referrals: Cesai Otto DO [Primary Care Provider] - Problem Oriented Discharge Instructions to Patient/Family: Nausea, Adult, Seizure, Adult, [id number], Alcohol Withdrawal, [id number] Additional Patient Instructions (free text): -Please make TCM appointment unless penitentiary discharge. Thank you! Ashtyn @ [phone]. -Resume services with [facility]. Please fax orders and call report upon discharge -Follow-up with PCP, Dr. Otto, within the next 1-2 weeks on 10-22-17 at 1:45pm. -Take zofran 4mg at least twice daily 30 minutes before AM and PM medications -[facility] to draw BMP on 10/20/2017 week to monitor potassium level Prescriptions (Any new or edited meds): Famotidine [Pepcid] 20 mg PO BID #60 tab Ondansetron HCl [Zofran] 4 mg PO Q6H PRN #50 tab PRN Reason: Nausea And Vomiting Potassium Chloride [K-Dur] 20 meq PO BIDWM #60 tablet.sa Complete Home Medications List: Complete Home Medication List: levETIRAcetam [Keppra] 500 mg PO BID 03/12/16 Albuterol Sulfate [Proair Hfa] 2 puff IH Q4H PRN 12/24/16 Folic Acid 1 mg PO DAILY 30 Days #30 tab 06/24/17 Multivitamins [Multivitamin Tanisha] 1 cap PO DAILY 30 Days #30 cap 06/24/17 Pantoprazole Sodium [Protonix] 40 mg PO DAILY #30 tablet. 07/23/17 ipratropium-albuterol 0.5 mg-3 mg(2.5 mg base)/3 mL nebulization soln 3 ml IH .COMPLEX 09/04/17 alprazolam 1 mg tablet 1 mg PO QID PRN #120 tab 09/22/17 furosemide 20 mg tablet 40 mg PO DAILY #60 tab 09/22/17 sertraline 50 mg tablet 50 mg PO DAILY #30 tab 09/22/17 Famotidine [Pepcid] 20 mg PO BID #60 tab 10/15/17 Ondansetron HCl [Zofran] 4 mg PO Q6H PRN #50 tab 10/15/17 Potassium Chloride [K-Dur] 20 meq PO BIDWM #60 tablet.sa 10/15/17 Amb Orders for Discharge: Basic Metabolic Panel Time Frame: 10/20/17, Facility: [facility], Location: Home Health Care
[2017-10-15] MEDS ORDERED: NORMAL SALINE 500 ML IV ONE (13:10)
[2017-10-15 17:35] VITALS: BP 101/73
== END 2017-10-15 18:05 | disposition home health service (06) ==
LOC: MS 23:51 → ER 23:51 → MS 10-14 04:00
PROVIDERS: ADMIT Internal Medicine; ATTEND Internal Medicine
DX: E87.6 Hypokalemia; J44.9 Chronic obstructive pulmonary disease, unspecified; E03.9 Hypothyroidism, unspecified; F17.210 Nicotine dependence, cigarettes, uncomplicated; Z91.14 Patient's other noncompliance with medication regimen; R11.2 Nausea with vomiting, unspecified; Z68.25 Body mass index [BMI] 25.0-25.9, adult; G40.909 Epilepsy, unspecified, not intractable, without status epilepticus; K70.30 Alcoholic cirrhosis of liver without ascites; F10.239 Alcohol dependence with withdrawal, unspecified; K21.9 Gastro-esophageal reflux disease without esophagitis; I10 Essential (primary) hypertension
CPT/HCPCS: 36415; 80048; 80053; 80076; 83605; 84132; 85025; 93005; 94640; 94664; 96361; 96365; 96366; 96367; 96375; 96376; 99285; G0378; J2405

== ENCOUNTER 2017-12-28 21:08 | Observation (INO) | payer MEDICAID, MEDICARE ==
[2017-12-28] MEDS ORDERED: ONDANSETRON HCL/PF 2 MG/ML VIAL IV ONE (21:33)
[2017-12-28] MEDS ORDERED: NORMAL SALINE 1,000 ML IV ONE ×3 (21:33→23:30)
[2017-12-28 22:06] LABS: Hematocrit 38.1 % (37.0-47.0); Mean Cell Volume 101.1 fl (78-100); Mean Corpuscular Hemoglobin 34.5 pg (27-31); Mean Corpuscular Hgb Conc 34.1 g/dl (32-36); Mean Platelet Volume 10.5 fl (8-12.5); Neutrophil # 6.9 K/mm3 (1.3-6.0); Neutrophil % 76.2 % (42-75.0); Platelet Count 193 K/mm3 (150-450); Red Blood Count 3.77 M/mm3 (4.2-5.4); Red Cell Distribution Width 16.7 % (11.5-14.0); White Blood Count 9.1 K/mm3 (4.0-10.5)
[2017-12-28 22:18] LABS: Prothrombin Time (Patient) 11.4 Seconds (9.0-11.0)
[2017-12-28 22:20] LABS: Urine Bilirubin 3 mg/dl (NEGATIVE); Urine Blood Negative /ul (NEGATIVE); Urine Ketone 15 mg/dL (NEGATIVE); Urine Protein 15 mg/dL (NEGATIVE); Urine Specific Gravity 1.025 SP.GR. (1.005-1.010)
[2017-12-28 22:24] LABS: Albumin * 2.2 gm/dl (3.4-5.0); Anion Gap 12.1 mmol/L (6.8-13.8); BUN/Creatinine Ratio 6.9 (9.0-21.6); Bilirubin, Total 3.4 mg/dL (0.0-1.1); Ca. Corrected For Albumin 9.5 mg/dL (8.4-10.2); Calcium * 8.4 mg/dL (7.9-10.9); Carbon Dioxide 28.6 mmol/L (24-32.6); Potassium 3.7 mmol/L (3.4-4.6); Total Protein 6.4 gm/dL (6.2-8.2)
[2017-12-28 22:26] LABS: Troponin I 2.666 ng/mL (0.00-0.10)
[2017-12-28 22:29] LABS: INR 1.14 INR (0.90-1.10); Partial Thrombolplastin Time 26.3 Seconds (24-32)
[2017-12-28 22:30] LABS: Urine Appearance Slightly Cloudy (CLEAR); Urine Bacteria TRACE; Urine Color Orange; Urine Hyaline Cast TRACE /LPF; Urine Nitrite Positive (NEGATIVE); Urine RBC None Seen /hpf (0-5); Urine WBC TRACE /hpf (0-5)
--- NOTE | 2017-12-28 22:32 | ERNOTE ---
Neuro HPI ER Record Date of Service: 12/28/17 Presenting Symptoms: confusion Time Seen by Provider: 12/28/17 21:19 Immunizations: IMMUNIZATION HX Immunizations Up to Date No: unknown History of Influenza Vaccine No Hx Pneumococcal Vaccination No Allergies/Adverse Reactions: Allergies Allergy/AdvReac Type Severity Reaction Status Date / Time phenobarbital Allergy Intermediate seizure Verified 12/28/17 21:26 grass pollen Allergy Mild unknown Verified 12/28/17 21:26 house dust Allergy Mild unknown Verified 12/28/17 21:26 mold Allergy unknown Verified 12/28/17 21:26 amoxicillin trihydrate AdvReac Mild Vomiting Verified 12/28/17 21:26 [From Augmentin] egg AdvReac Mild runny nose Verified 12/28/17 21:26 ibuprofen AdvReac Mild Vomiting Verified 12/28/17 21:26 potassium clavulanate AdvReac Mild Vomiting Verified 12/28/17 21:26 [From Augmentin] promethazine HCl AdvReac Mild Vomiting Verified 12/28/17 21:26 [From Phenergan] Home Medications: HOME MEDICATIONS Folic Acid 1 mg PO DAILY 30 Days #30 tab 06/24/17 [Last Taken Unknown] alprazolam 1 mg tablet 1 mg PO QID PRN #120 tab 09/22/17 [Last Taken Unknown] sertraline 50 mg tablet 50 mg PO DAILY #30 tab 09/22/17 [Last Taken Unknown] Famotidine [Pepcid] 20 mg PO BID #60 tab 10/15/17 [Last Taken Unknown] levetiracetam 1,000 mg tablet 500 mg PO BID #30 tab 11/16/17 [Last Taken Unknown] albuterol sulfate HFA 90 mcg/actuation aerosol inhaler 2 puff IH Q4H PRN #8.5 g 11/18/17 [Last Taken Unknown] ondansetron HCl 4 mg tablet 4 mg PO Q6H PRN #50 tab 11/30/17 [Last Taken Unknown] Potassium Chloride [K-Dur] 20 meq PO BID 12/01/17 [Last Taken Unknown] spironolactone 25 mg tablet 25 mg PO DAILY #30 tab 12/14/17 [Last Taken Unknown] Albuterol Sulfate/Ipratropium [Duoneb 2.5-0.5MG/3ML Soln] 3 ml IH Q6H 12/28/17 [Last Taken Unknown] - History of Present Illness Narrative: This patient is a 57-year-old female who was brought here by a friend who takes care of her. She is confused. The patient is not able to give any useful history. She does not answer questions. She pushes me away during the exam. He said that she has been in bed the past 2 days. He does not think she is been getting out of bed because she has been urinating in bed and not feeding her cat. She normally drinks 8-10 beers a day but does not appear to have drank her beer the last day or 2. He said that she does not know him or any of her friends. She does not know where she is. She thought she was home when they got here. She reportedly was not able to walk and had to be carried to the car. He said that her belly was sore when he pushed on it. He said that she complained about her left arm or hand. He thinks she looks yellow. He said that she has been vomiting green. She has been eating less. She has had low potassium in the past. He said she had at least one seizure yesterday. He does not know if she is having continued seizures. Review of Systems - Narrative Narrative: Unable to obtain accurate review of systems from the patient. Medical History (Last Reviewed 12/28/17 @ 22:23 by Mati Tinoco MD) Hypokalemia (Acute) Oxygen dependent (Chronic) Chronic respiratory failure with hypoxia, on home O2 therapy (Chronic) Tobacco abuse (Chronic) Onset Date: Unknown Osteoarthritis (Chronic) Onset Date: Unknown Macrocytosis without anemia (Chronic) Onset Date: 10/11/15 Hypothyroid (Chronic) Onset Date: 2013 Hyperlipidemia (Chronic) Onset Date: 04/04/16 Club foot (Chronic) Onset Date: Unknown Essential hypertension (Chronic) Onset Date: 10/11/15 Anxiety (Chronic) Onset Date: Unknown Seizure disorder (Chronic) COPD exacerbation (Chronic) Alcoholic cardiomyopathy (Chronic) Cirrhosis of liver (Chronic) Onset Date: Unknown Alcohol abuse (Chronic) Onset Date: 10/11/15 GERD (gastroesophageal reflux disease) (Chronic) Onset Date: Unknown Back pain (Chronic) Onset Date: Unknown Seizure (Chronic) Onset Date: 2013 COPD (chronic obstructive pulmonary disease) (Chronic) Onset Date: 08/27/17 increase O2 to 2 liters at rest and 3 liters with activity and sleep. Per the summary report of the overnight pulse oximetry patient is not getting sufficient air flow at night. She did drop down to 76% with an average of 85%. We will increase O2 at 3 liter a night. The patient needs new oxygen tubing as well as I would like to see if there is anyway we can get the patient a humidifier for her oxygen. We will discuss with Chana. Edema extremities Onset Date: Unknown Panic attacks Onset Date: Unknown Alcohol intoxication Onset Date: Unknown Concussion Onset Date: Unknown Pneumonia Rib pain Onset Date: Unknown UTI (urinary tract infection) Surgical History: Surgical History (Last Reviewed 12/28/17 @ 22:23 by Mati Tinoco MD) History of carpal tunnel release (Resolved) Onset Date: Unknown bilateral H/O section Onset Date: Unknown x 3 History of colon surgery Onset Date: 2002 sigmoid mesenteric cyst removed History of esophagogastroduodenoscopy Onset Date: 01/26/02 01/26/02 Dr Mckeon-extensive peptic ulcer disease w/antral gastritis and duodenitis. History of lower leg fracture Onset Date: 02/04/13 external fixator: right pilon fracture of leg; with [address] Wilson [facility] Status post cholecystectomy Onset Date: Unknown open ovarian surgery Onset Date: Unknown left ovary removed Family History: Family History (Last Reviewed 12/28/17 @ 22:23 by Mati Tinoco MD) Father , age 53-SD Hypertension Myocardial infarction Mother , age 63-ovarian cancer Cancer ovarian cancer-age 60 Sister Alive and well 2 sisters Arthritis 1 sister Brother Heart disease had stent Social History: Preferred Language [place] Do you have any yazidism or No cultural preference? Smoking Status Heavy tobacco smoker Abuse History Hx of Substance Use Psych History Hx of Anxiety,Currently on Meds Alcohol Use heavy Drug Use none (Last Updated 12/14/17 @ 15:13 by Alicia Rios DO) No Social History Section defined Physical Exam - Physical Exam General Appearance: Present: wd/wn, no apparent distress, other - She is lying on the bed on her left side with her eyes closed. Head Exam: Present: normal inspection, no evidence of injury Eye Exam: Normal inspection: bilateral Ears, Nose, Throat: Present: normal ENT inspection Neck: Present: normal inspection. Absent: lymphadenopathy (R), lymphadenopathy (L), thyromegaly Respiratory: Present: no respiratory distress, normal breath sounds, no accessory muscle use, lungs clear Cardiovascular/Chest: Present: no murmur, tachycardia Gastrointestinal/Abdominal: Present: normal bowel sounds, nondistended, soft, other - She pushes my hand away with deep palpation. She does not localize pain to any portion of her abdomen. Extremity Exam: Present: normal inspection, no edema, other - She has some abrasions of the right forearm. She resists movement of all her extremities. There is no obvious deformity or area of localized tenderness of the of the exam is limited. Neurological Exam: Present: other - She is lying on the table with her eyes closed. She did open her eyes and asked. She seems to have equal movement of all her extremities. She localizes pain and resists the exam. She is not answering questions. Skin Exam: Present: warm/dry, pallor, other - She has some abrasions of the neck. ED Progress - Date and Time Seen: Date and Time: 12/28/17 23:34 She is more lucent. She can tell me that she has right upper quadrant abdominal pain. She knows her friend and where she is. She does not know the date. She is not able to give much history. - Results and Orders Patient's Lab Results:: I have reviewed the patient's lab results. Results and Orders: Selected Entries 12/28/17 21:19 Temperature 98 C H Laboratory Tests 12/28/17 12/28/17 12/28/17 21:31 22:00 22:00 WBC 9.1 RBC 3.77 L Hgb 13.0 Hct 38.1 MCV 101.1 H MCH 34.5 H MCHC 34.1 RDW 16.7 H Plt Count 193 MPV 10.5 Immature Gran % (Auto) 0.30 Immature Gran # (Auto) 0.03 Neutrophils % 76.2 H Lymphocytes % 15.4 L Monocytes % 7.9 Eosinophils % 0.0 Basophils % 0.2 Nucleated RBC % 0.0 Neutrophils # 6.9 H Lymphocytes # 1.40 L Monocytes # 0.7 Eosinophils # 0.0 Absolute Basophils 0.0 PT 11.4 H INR (Anticoag Therapy) 1.14 H PTT ([place]) 26.3 pCO2 26.8 L pO2 54.5 L HCO3 22.1 Total CO2 23.0 Base Excess 0.8 ABG pH 7.54 H ABG O2 Sat (Measured) 92.2 L Sodium Plasma Sodium Potassium Chloride Carbon Dioxide Anion Gap BUN Creatinine Est GFR (Non-Af Amer) BUN/Creatinine Ratio Random Glucose Lactic Acid, Venous Calcium Calcium Adj for Albumin Total Bilirubin AST ALT Alkaline Phosphatase Ammonia Troponin I Total Protein Albumin Lipase 12/28/17 12/28/17 12/28/17 22:00 22:00 22:00 WBC RBC Hgb Hct MCV MCH MCHC RDW Plt Count MPV Immature Gran % (Auto) Immature Gran # (Auto) Neutrophils % Lymphocytes % Monocytes % Eosinophils % Basophils % Nucleated RBC % Neutrophils # Lymphocytes # Monocytes # Eosinophils # Absolute Basophils PT INR (Anticoag Therapy) PTT ([place]) pCO2 pO2 HCO3 Total CO2 Base Excess ABG pH ABG O2 Sat (Measured) Sodium 139 Plasma Sodium 139 Potassium 3.7 D Chloride 102 Carbon Dioxide 28.6 Anion Gap 12.1 BUN 6 D Creatinine 0.87 Est GFR (Non-Af Amer) 71 D BUN/Creatinine Ratio 6.9 L Random Glucose 96 Lactic Acid, Venous 2.7 H* Calcium 8.4 Calcium Adj for Albumin 9.5 Total Bilirubin 3.4 H AST 146 H ALT 46 Alkaline Phosphatase 354 H Ammonia Less than 17.0 Troponin I 2.666 H* Total Protein 6.4 Albumin 2.2 L Lipase 26 L Laboratory Tests 12/28/17 12/28/17 22:00 22:[address] [place] Urine Appearance Slightly cloudy Urine pH 6.0 Ur Specific [place] 1.025 Urine Protein 15 H Urine Glucose (UA) 100 H Urine Ketones 15 Urine Blood Negative Urine Nitrate Positive H Urine Bilirubin 3 H Urine Ictotest Positive H Prot Sulfosalicylic Acd Negative Urine Urobilinogen 2.0 H Ur Leukocyte Esterase Negative Urine RBC None seen Urine WBC Trace H Ur Epithelial Cells 0-5 Urine Bacteria Trace Hyaline Casts Trace Urine Culture Comments Culture to follow Ethyl Alcohol Less than 3.0 - Vital Signs Patient's Vital Signs:: I have reviewed the patient's vital signs. Vital Signs: Vital Signs 12/28/17 21:19 12/28/17 21:40 12/28/17 22:10 Temperature 98 C H Pulse Rate 111 H 104 H 109 H Respiratory Rate 20 16 18 Blood Pressure 97/58 97/58 99/61 O2 Sat by Pulse Oximetry 97 96 - EKG EKG read: Interp. by me EKG Comments: Sinus tachycardia Rate [address] or T wave changes Compared to 10/14/2017, she has a similar rate and morphology but the ST and T wave changes have improved. - X-Ray X-Ray #1 X-Ray: chest Interpretation: Interp. by me X-ray Comments: No acute process. - CT/Ultrasound CT/Ultrasound Narrative: CT BRAIN WITHOUT CONTRAST COMPARISON: None FINDINGS: No evidence of an acute infarct or intraparenchymal hemorrhage. No extra-axial fluid collection. No fracture. IMPRESSION: 1. No acute disease in the brain. - Progress/Reassessment Chief Complaint: Altered Mental Status Departure Clinical Impression: Change in mental status, Alcohol abuse, Seizure disorder, Urinary tract infection - Departure Disposition: Still a patient Condition: Stable
[2017-12-28] MEDS ORDERED: DEXTROSE 5 % IN WATER 100 ML BAG IV ONE (23:00)
[2017-12-29] MEDS ORDERED: ADENOSINE 3 MG/ML DISP.SYRIN IV ONE (01:03)
[2017-12-29] MEDS: ADENOSINE 3 MG/ML DISP.SYRIN IV ONE ×2 (01:06→01:18)
[2017-12-29] MEDS ORDERED: NORMAL SALINE 1,000 ML IV ONE (01:15)
--- NOTE | 2017-12-29 01:33 | PN ---
Progess Note - Interim Date: 12/29/17 Time: 01:23 Narrative: 12/29/17 01:23 Was called at a little after midnight to come and see this patient as she was recently brought up to the floor from the ER under observation. She was found to be tachycardic in the 170s. Blood pressure was 70/50s. She was sating mid to upper 80s. EKG showed her to be in SVT. Adenosine x2 was administered. Patient responded well, HR came down to low 100s and BP was 100s/70s. Patient stated that she felt much better, denied any issues and was much more coherent. She was on her 3rd bag of IV fluids. 2nd troponin was received during this time and was elevated in the 2.5s (lower than the first). She denied chest pain/SOB. Friend states she has been nauseated. EKG showed no ST elevation/depression. Will administer ASA and lovenox. Cardiology to be consulted in the AM. Holdoing beta will due to hypotension at this time. 3rd set of troponins ordered for 0320. Nurses will call and notify me if needed if patient becomes unstable. 12/29/17 01:31
[2017-12-29] MEDS ORDERED: ASPIRIN 325 MG TABLET.DR PO ONE (01:43)
[2017-12-29] MEDS ORDERED: ENOXAPARIN SODIUM 60 MG/0.6 ML SYRG SC SCH (01:45)
[2017-12-29] MEDS ORDERED: ENOXAPARIN SODIUM 30 MG/0.3 ML SYRG SC ONE (01:54)
[2017-12-29] MEDS ORDERED: NORMAL SALINE 1,000 ML IV PRN (02:26)
[2017-12-29] MEDS ORDERED: ALPRAZolam 1 MG TABLET PO STA (08:45)
--- NOTE | 2017-12-29 08:50 | HP ---
Chief Complaint - Chief Complaint Date of Service: 12/29/17 Time of Service: 08:46 Chief Complaint: Patient not really sure History of Present Illness: The patient was brought to the ED late last night around 2200 for confusion and not acting right. When I asked the patient, she states she is not really sure what was going on right when she was brought to the ED but admits to having chest pain yesterday evening and then waking up late last night in the emergency department. The patient's troponin on arrival in the ED was 2.666 and although I am not sure why, the patient was subsequently admitted to [facility] for ongoing evaluation and management. When I saw the patient this AM, she states that she is not currently having "chest pain" but states it is more of a tightness or heaviness. She has chronic shortness of breath which she states is about the same as usual. She admits to feeling nauseated last night as well as feeling "hot chills" where she would get really sweaty and clammy. The patient also appears to be in new onset heart failure with a BNP around 25,000. Medical History (Last Reviewed 12/29/17 @ 01:41 by Shaneka Unger RN) Hypokalemia (Acute) Oxygen dependent (Chronic) Chronic respiratory failure with hypoxia, on home O2 therapy (Chronic) Tobacco abuse (Chronic) Onset Date: Unknown Osteoarthritis (Chronic) Onset Date: Unknown Macrocytosis without anemia (Chronic) Onset Date: 10/11/15 Hypothyroid (Chronic) Onset Date: 2013 Hyperlipidemia (Chronic) Onset Date: 04/04/16 Club foot (Chronic) Onset Date: Unknown Essential hypertension (Chronic) Onset Date: 10/11/15 Anxiety (Chronic) Onset Date: Unknown Seizure disorder (Chronic) COPD exacerbation (Chronic) Alcoholic cardiomyopathy (Chronic) Cirrhosis of liver (Chronic) Onset Date: Unknown Alcohol abuse (Chronic) Onset Date: 10/11/15 GERD (gastroesophageal reflux disease) (Chronic) Onset Date: Unknown Back pain (Chronic) Onset Date: Unknown Seizure (Chronic) Onset Date: 2013 COPD (chronic obstructive pulmonary disease) (Chronic) Onset Date: 10/12/16 increase O2 to 2 liters at rest and 3 liters with activity and sleep. Per the summary report of the overnight pulse oximetry patient is not getting suf ficient air flow at night. She did drop down to 76% with an average of 85%. We will increase O2 at 3 liter a night. The patient needs new oxygen tubing as well as I would like to see if there is anyway we can get the patient a humidifier for her oxygen. We will discuss with Chana. Edema extremities Onset Date: Unknown Panic attacks Onset Date: Unknown Alcohol intoxication Onset Date: Unknown Concussion Onset Date: Unknown Pneumonia Rib pain Onset Date: Unknown UTI (urinary tract infection) Surgical History: Surgical History (Last Reviewed 12/29/17 @ 01:41 by Shaneka Unger RN) History of carpal tunnel release (Resolved) Onset Date: Unknown bilateral H/O section Onset Date: Unknown x 3 History of colon surgery Onset Date: 2002 sigmoid mesenteric cyst removed History of esophagogastroduodenoscopy Onset Date: 01/26/02 01/26/02 Dr Mckeon-extensive peptic ulcer disease w/antral gastritis and duodenitis. History of lower leg fracture Onset Date: 02/04/13 external fixator: right pilon fracture of leg; with [address] Wilson [facility] Status post cholecystectomy Onset Date: Unknown open ovarian surgery Onset Date: Unknown left ovary removed Family History: Family History (Last Reviewed 12/29/17 @ 01:41 by Shaneka Unger RN) Father , age 53-NE Myocardial infarction Hypertension Mother , age 63-ovarian cancer Cancer ovarian cancer-age 60 Sister Arthritis 1 sister Alive and well 2 sisters Brother Heart disease had stent Social History: Patient Lives/Resources Home Utilized Occupation disable Preferred Language Niuean Do you have any confucianism or No cultural preference? Smoking Status Current every day smoker Have you smoked in the past 12 Yes months Do you dip or chew tobacco No Abuse History Hx of Substance Use Psych History Hx of Anxiety,Currently on Meds Alcohol Use heavy Drug Use none (Last Updated 12/14/17 @ 15:13 by Alicia Rios DO) No Social History Section defined Review Of Systems (GEN) - Review of Systems Generalized/Overall Review: Present: Chills Respiratory: Present: Cough - chronic, at baseline, Shortness of Breath - chronic, at baseline Cardiac: Present: Chest Pain - chest heaviness/tightness, Other Abdominal: Present: Nausea Genitourinary: Present: No Symptoms Reported Musculoskeletal: Present: Joint Pain - chronic, at baseline, Back Pain - chronic, at baseline Neurological: Present: Anxiety Misc: All systems neg except as marked Immunizations: IMMUNIZATION HX Immunizations Up to Date No: unknown History of Influenza Vaccine No Hx Pneumococcal Vaccination No Allergies/Adverse Reactions: Allergies Allergy/AdvReac Type Severity Reaction Status Date / Time phenobarbital Allergy Intermediate seizure Verified 12/28/17 21:26 grass pollen Allergy Mild unknown Verified 12/28/17 21:26 house dust Allergy Mild unknown Verified 12/28/17 21:26 mold Allergy unknown Verified 12/28/17 21:26 amoxicillin trihydrate AdvReac Mild Vomiting Verified 12/28/17 21:26 [From Augmentin] egg AdvReac Mild runny nose Verified 12/28/17 21:26 ibuprofen AdvReac Mild Vomiting Verified 12/28/17 21:26 potassium clavulanate AdvReac Mild Vomiting Verified 12/28/17 21:26 [From Augmentin] promethazine HCl AdvReac Mild Vomiting Verified 12/28/17 21:26 [From Phenergan] Home Medications: HOME MEDICATIONS Folic Acid 1 mg PO DAILY 30 Days #30 tab 06/24/17 [Last Taken Unknown] alprazolam 1 mg tablet 1 mg PO QID PRN #120 tab 09/22/17 [Last Taken Unknown] sertraline 50 mg tablet 50 mg PO DAILY #30 tab 09/22/17 [Last Taken Unknown] Famotidine [Pepcid] 20 mg PO BID #60 tab 10/15/17 [Last Taken Unknown] levetiracetam 1,000 mg tablet 500 mg PO BID #30 tab 11/16/17 [Last Taken Unknown] albuterol sulfate HFA 90 mcg/actuation aerosol inhaler 2 puff IH Q4H PRN #8.5 g 11/18/17 [Last Taken Unknown] ondansetron HCl 4 mg tablet 4 mg PO Q6H PRN #50 tab 11/30/17 [Last Taken Unknown] Potassium Chloride [K-Dur] 20 meq PO BID 12/01/17 [Last Taken Unknown] spironolactone 25 mg tablet 25 mg PO DAILY #30 tab 12/14/17 [Last Taken Unknown] Albuterol Sulfate/Ipratropium [Duoneb 2.5-0.5MG/3ML Soln] 3 ml IH Q6H 12/28/17 [Last Taken Unknown] Exam - Exam Vital Signs: Vital Signs - Last Taken Temp 36.6 C 12/29/17 07:25 Pulse 95 12/29/17 07:25 Resp 20 12/29/17 07:25 BP 94/48 12/29/17 07:25 Pulse Ox 96 12/29/17 07:25 Constitutional: Present: Alert, Oriented x3, Cooperative, Looks Older than stated age ENT Exam: Present: hearing grossly normal Neck: Present: other - JVD with distension noted up to at least the level of the ears Respiratory: Present: no respiratory distress, no accessory muscle use, decreased breath sounds Cardiovascular/Chest: Present: other - Difficult to thoroughly assess secondary to very distant heart sounds Abdomen: Present: soft, nontender, nondistended Extremity: Present: other - 1+ edema in bilateral lower extremities left>right with associated mild erythema Skin Exam: Present: warm/dry, other - Mild erythema to bilateral lower extremities especially around the ankles left>right, likely related to new onset lower extremity edema Neurologic: Present: no motor/sensory deficits, alert, normal mood/affect, oriented x 3 Appearance: Present: appropriate insight Eye contact: Present: cooperative, good eye contact, normal speech Thoughts: Present: normal thought pattern, no apparent hallucination Diagnostic Studies: Abnormal Lab Results 12/28/17 12/28/17 12/28/17 Range/Units 21:31 22:00 22:00 RBC 3.77 L (4.2-5.4) M/mm3 MCV 101.1 H (78-100) fl MCH 34.5 H (27-31) pg RDW 16.7 H (11.5-14.0) % Neutrophils % 76.2 H (42-75.0) % Lymphocytes % 15.4 L (20-51) % Neutrophils # 6.9 H (1.3-6.0) K/mm3 Lymphocytes # 1.40 L (1.5-3.5) k/mm3 PT 11.4 H (9.0-11.0) Seconds INR (Anticoag Therapy) 1.14 H (0.90-1.10) INR pCO2 26.8 L (32.0-45.0) mmHg pO2 54.5 L (83.0-108.0) mmHg ABG pH 7.54 H (7.35-7.45) ABG O2 Sat (Measured) 92.2 L (94.0-98.0) % BUN/Creatinine Ratio (9.0-21.6) Lactic Acid, Venous (0.4-2.0) mmol/L Total Bilirubin (0.0-1.1) mg/dL AST (0-48) U/L Alkaline Phosphatase (50-170) U/L Troponin I (0.00-0.10) ng/mL B-Natriuretic Peptide (5-205) pg/mL Albumin (3.4-5.0) gm/dl Lipase (73-393) U/L Urine Protein (NEGATIVE) mg/dL Urine Glucose (UA) (NEGATIVE) mg/dL Urine Nitrate (NEGATIVE) Urine Bilirubin (NEGATIVE) mg/dl Urine Ictotest (NEGATIVE) Urine Urobilinogen (NORMAL) EU/dl Urine WBC (0-5) /hpf 12/28/17 12/28/17 12/28/17 Range/Units 22:00 22:00 22:16 RBC (4.2-5.4) M/mm3 MCV (78-100) fl MCH (27-31) pg RDW (11.5-14.0) % Neutrophils % (42-75.0) % Lymphocytes % (20-51) % Neutrophils # (1.3-6.0) K/mm3 Lymphocytes # (1.5-3.5) k/mm3 PT (9.0-11.0) Seconds INR (Anticoag Therapy) (0.90-1.10) INR pCO2 (32.0-45.0) mmHg pO2 (83.0-108.0) mmHg ABG pH (7.35-7.45) ABG O2 Sat (Measured) (94.0-98.0) % BUN/Creatinine Ratio 6.9 L (9.0-21.6) Lactic Acid, Venous 2.7 H* (0.4-2.0) mmol/L Total Bilirubin 3.4 H (0.0-1.1) mg/dL AST 146 H (0-48) U/L Alkaline Phosphatase 354 H (50-170) U/L Troponin I 2.666 H* (0.00-0.10) ng/mL B-Natriuretic Peptide (5-205) pg/mL Albumin 2.2 L (3.4-5.0) gm/dl Lipase 26 L (73-393) U/L Urine Protein 15 H (NEGATIVE) mg/dL Urine Glucose (UA) 100 H (NEGATIVE) mg/dL Urine Nitrate Positive H (NEGATIVE) Urine Bilirubin 3 H (NEGATIVE) mg/dl Urine Ictotest Positive H (NEGATIVE) Urine Urobilinogen 2.0 H (NORMAL) EU/dl Urine WBC Trace H (0-5) /hpf 12/29/17 12/29/17 12/29/17 Range/Units 00:20 00:20 03:20 RBC (4.2-5.4) M/mm3 MCV (78-100) fl MCH (27-31) pg RDW (11.5-14.0) % Neutrophils % (42-75.0) % Lymphocytes % (20-51) % Neutrophils # (1.3-6.0) K/mm3 Lymphocytes # (1.5-3.5) k/mm3 PT (9.0-11.0) Seconds INR (Anticoag Therapy) (0.90-1.10) INR pCO2 (32.0-45.0) mmHg pO2 (83.0-108.0) mmHg ABG pH (7.35-7.45) ABG O2 Sat (Measured) (94.0-98.0) % BUN/Creatinine Ratio (9.0-21.6) Lactic Acid, Venous (0.4-2.0) mmol/L Total Bilirubin (0.0-1.1) mg/dL AST (0-48) U/L Alkaline Phosphatase (50-170) U/L Troponin I 2.581 H* 3.173 H* (0.00-0.10) ng/mL B-Natriuretic Peptide 52938 H (5-205) pg/mL Albumin (3.4-5.0) gm/dl Lipase (73-393) U/L Urine Protein (NEGATIVE) mg/dL Urine Glucose (UA) (NEGATIVE) mg/dL Urine Nitrate (NEGATIVE) Urine Bilirubin (NEGATIVE) mg/dl Urine Ictotest (NEGATIVE) Urine Urobilinogen (NORMAL) EU/dl Urine WBC (0-5) /hpf Laboratory Results WBC 9.1 K/mm3 (4.0-10.5) 12/28/17 22:00 RBC 3.77 M/mm3 (4.2-5.4) L 12/28/17 22:00 Hgb 13.0 gm/dL (12.5-16.0) 12/28/17 22:00 Hct 38.1 % (37.0-47.0) 12/28/17 22:00 MCV 101.1 fl (78-100) H 12/28/17 22:00 MCH 34.5 pg (27-31) H 12/28/17 22:00 MCHC 34.1 g/dl (32-36) 12/28/17 22:00 RDW 16.7 % (11.5-14.0) H 12/28/17 22:00 Plt Count 193 K/mm3 (150-450) 12/28/17 22:00 MPV 10.5 fl (8-12.5) 12/28/17 22:00 Immature Gran % (Auto) 0.30 % (0.001-0.429) 12/28/17 22:00 Immature Gran # (Auto) 0.03 K/mm3 (0.000-0.0310) 12/28/17 22:00 Neutrophils % 76.2 % (42-75.0) H 12/28/17 22:00 Lymphocytes % 15.4 % (20-51) L 12/28/17 22:00 Monocytes % 7.9 % (0.0-9) 12/28/17 22:00 Eosinophils % 0.0 % (0.0-3.0) 12/28/17 22:00 Basophils % 0.2 % (0.0-1.0) 12/28/17 22:00 Nucleated RBC % 0.0 k/mm3 (0-1) 12/28/17 22:00 Neutrophils # 6.9 K/mm3 (1.3-6.0) H 12/28/17 22:00 Lymphocytes # 1.40 k/mm3 (1.5-3.5) L 12/28/17 22:00 Monocytes # 0.7 k/mm3 (0.0-1.0) 12/28/17 22:00 Eosinophils # 0.0 k/mm3 (0.0-0.7) 12/28/17 22:00 Absolute Basophils 0.0 k/mm3 (0.0-0.1) 12/28/17 22:00 PT 11.4 Seconds (9.0-11.0) H 12/28/17 22:00 INR (Anticoag Therapy) 1.14 INR (0.90-1.10) H 12/28/17 22:00 PTT ([place]) 26.3 Seconds (24-32) 12/28/17 22:00 pCO2 26.8 mmHg (32.0-45.0) L 12/28/17 21:31 pO2 54.5 mmHg (83.0-108.0) L 12/28/17 21:31 HCO3 22.1 mmol/L (21.0-28.0) 12/28/17 21: Total CO2 23.0 mmol/L (19.0-24.0) 12/28/17 21:31 Base Excess 0.8 mmol/L (-2.0-3.0) 12/28/17 21: ABG pH 7.54 (7.35-7.45) H 12/28/17 21:31 ABG O2 Sat (Measured) 92.2 % (94.0-98.0) L 12/28/17 21:31 Sodium 139 mmol/L (132-142) 12/28/17 22:00 Plasma Sodium 139 mmol/L (130-142) 12/28/17 22:00 Potassium 3.7 mmol/L (3.4-4.6) D 12/28/17 22:00 Chloride 102 mmol/L (97-106) 12/28/17 22:00 Carbon Dioxide 28.6 mmol/L (24-32.6) 12/28/17 22:00 Anion Gap 12.1 mmol/L (6.8-13.8) 12/28/17 22:00 BUN 6 mg/dL (3-23) D 12/28/17 22:00 Creatinine 0.87 mg/dL (0.4-1.4) 12/28/17 22:00 Est GFR (Non-Af Amer) 71 mL/min (60-130) D 12/28/17 22:00 BUN/Creatinine Ratio 6.9 (9.0-21.6) L 12/28/17 22:00 Random Glucose 96 mg/dL (70-110) 12/28/17 22:00 Lactic Acid, Venous 1.5 mmol/L (0.4-2.0) 12/29/17 00:20 Calcium 8.4 mg/dL (7.9-10.9) 12/28/17 22:00 Calcium Adj for Albumin 9.5 mg/dL (8.4-10.2) 12/28/17 22:00 Total Bilirubin 3.4 mg/dL (0.0-1.1) H 12/28/17 22:00 AST 146 U/L (0-48) H 12/28/17 22:00 ALT 46 U/L (19-67) 12/28/17 22:00 Alkaline Phosphatase 354 U/L (50-170) H 12/28/17 22:00 Ammonia Less than 17.0 mcmol/L (11-35) 12/28/17 22:00 Creatine Kinase 200 U/L (0-259) 12/29/17 00:20 Troponin I 3.173 ng/mL (0.00-0.10) H* 12/29/17 03:20 B-Natriuretic Peptide 52621 pg/mL (5-205) H 12/29/17 00:20 Total Protein 6.4 gm/dL (6.2-8.2) 12/28/17 22:00 Albumin 2.2 gm/dl (3.4-5.0) L 12/28/17 22:00 Lipase 26 U/L (73-393) L 12/28/17 22:00 Urine Color [place] 12/28/17 22:16 Urine Appearance Slightly cloudy (CLEAR) 12/28/17 22:16 Urine pH 6.0 pH (5.0-7.0) 12/28/17 22:16 Ur Specific [place] 1.025 SP.GR. (1.005-1.010) 12/28/17 22:16 Urine Protein 15 mg/dL (NEGATIVE) H 12/28/17 22:16 Urine Glucose (UA) 100 mg/dL (NEGATIVE) H 12/28/17 22:16 Urine Ketones 15 mg/dL (NEGATIVE) 12/28/17 22:16 Urine Blood Negative /ul (NEGATIVE) 12/28/17 22:16 Urine Nitrate Positive (NEGATIVE) H 12/28/17 22:16 Urine Bilirubin 3 mg/dl (NEGATIVE) H 12/28/17 22:16 Urine Ictotest Positive (NEGATIVE) H 12/28/17 22:16 Prot Sulfosalicylic Acd Negative mg/dL (0) 12/28/17 22:16 Urine Urobilinogen 2.0 EU/dl (NORMAL) H 12/28/17 22:16 Ur Leukocyte Esterase Negative /ul (NEGATIVE) 12/28/17 22:16 Urine RBC None seen /hpf (0-5) 12/28/17 22:16 Urine WBC Trace /hpf (0-5) H 12/28/17 22:16 Ur Epithelial Cells 0-5 /hpf (0-5) 12/28/17 22:16 Urine Bacteria Trace (NONE) 12/28/17 22:16 Hyaline Casts Trace /LPF (NONE) 12/28/17 22:16 Urine Culture Comments Culture to follow 12/28/17 22:16 Ethyl Alcohol Less than 3.0 mg/dL (0.0-10.0) 12/28/17 22:00 Assessment/Plan - Narrative Narrative: Patient is having a NSTEMI with significantly elevated troponin with the most recent troponin around 0300 being 3.17. EKGs overnight reviewed and show anterior/lateral ST depression. The patient also appears to be in new onset heart failure with new onset lower extremity edema and JVD. The patient was started on a heparin gtt and calls have been placed to [facility] to transfer the patient to a facility with cardiology and cardiac catheterization technologist. Patient will be transferred as soon as arrangements have been made. - Assessment/Plan (1) NSTEMI (non-ST elevated myocardial infarction) Problem: Acute (2) New onset of congestive heart failure Problem: Acute
[2017-12-29] MEDS ORDERED: HEPARIN SODIUM,PORCINE/D5W 25,000 UNITS/500 ML BAG IV PRN (08:57)
[2017-12-29] MEDS ORDERED: HEPARIN SODIUM,PORCINE 5,000 UNITS/ML VIAL IV ONE (08:58)
[2017-12-29 10:11] LABS: Troponin I 2.975 ng/mL (0.00-0.10)
[2017-12-29 10:12] LABS: CKMB 3.6 ng/mL (0.0-9.0)
[2017-12-29 11:05] VITALS: BP 100/66
--- NOTE | 2017-12-29 12:51 | DS ---
Transfer Discharge Summary - Diagnosis(s)/Problems (1) NSTEMI (non-ST elevated myocardial infarction) Problem: Acute (2) New onset of congestive heart failure Problem: Acute - Course Description of Stay: ADMISSION DATE: 12/28/2017 TRANSFER DISCHARGE DATE: 12/29/2017 ADMISSION HPI: The patient was brought to the ED late last night around 2200 for confusion and not acting right. When I asked the patient, she states she is not really sure what was going on right when she was brought to the ED but admits to having chest pain yesterday evening and then waking up late last night in the emergency department. The patient's troponin on arrival in the ED was 2.666 and although I am not sure why, the patient was subsequently admitted to med-surg for ongoing evaluation and management. When I saw the patient this AM, she states that she is not currently having "chest pain" but states it is more of a tightness or heaviness. She has chronic shortness of breath which she states is about the same as usual. She admits to feeling nauseated last night as well as feeling "hot chills" where she would get really sweaty and clammy. The patient also appears to be in new onset heart failure with a BNP around 25,000. HOSPITAL COURSE: Patient found to have a NSTEMI with significantly elevated troponin and EKGs show anterior/lateral ST depression. The patient also appears to be in new onset heart failure with new onset lower extremity edema and JVD. The patient was started on a heparin gtt and her case was discussed with the hospitalist at [facility] who accepted the patient in transfer with plans for cardiology consultation (Dr. Mobley, I believe). The patient was transferred via ambulance to [facility] for further management of her NSTEMI as we do not have cardiology services or a labor trainer available at our facility. RADIOLOGY REPORTS: Head CT without contrast on 12/28/2017: FINDINGS: Age-related cortical atrophy and periventricular white matter chronic ischemic changes are present. Intracranial atherosclerotic calcifications noted. No acute intracranial hemorrhage. No midline shift or herniation. Bradley and white matter differentiation is grossly intact. No obvious soft tissue swelling or scalp hematoma noted. Skull grossly intact, without signs of depressed skull fracture. Visualized portions of the paranasal sinuses are clear. Mastoid air cells are grossly clear. IMPRESSION: 1. No acute intracranial hemorrhage or mass effect. 2. Additional comments as above. Single View CXR on 12/28/2017: FINDINGS: Normal inflation of lungs. No definite consolidation. There is increased vascular markings, especially at the upper lung zones, which could be a function of supine technique, but consider pulmonary vascular congestion. No pneumothorax or pleural fluid collections apparent. Cardiac and mediastinal silhouettes are grossly unchanged given differences in technique and positioning. Vascular calcification noted over the aortic knob suggestive of atherosclerosis. Calcified left hilar lymph nodes, stable. Trachea is in normal position given patient positioning. Osseous structures are grossly intact. IMPRESSION: 1. No focal acute cardiopulmonary finding. 2. Pulmonary vascular congestion versus artifact from supine technique as above. Complete Abdominal Ultrasound on 12/28/2017: Findings: Once again there is fatty hepatomegaly. No ductal dilatation or mass. The gallbladder is removed. No extra hepatic biliary ductal dilation. The CHD = 0.42 cm, the proximal CBD = 0.58 cm and the distal CBD = 0.52 cm. The pancreas is not seen well. The spleen is normal size without mass and measures 6.8 x 3.1 x 2.8 cm. The kidneys are normal size and echotexture and are without mass, nephrolithiasis or hydronephrosis. The right kidney measures 10.5 cm while the left kidney measures 12.7 cm. There is a left renal cyst which is simple. Portal veins, aorta and IVC were seen. Flow within the portal vein is in the normal antegrade direction. IMPRESSION: Reidentified fatty hepatomegaly. The coordination of care and transfer discharge process provided by me on the day of transfer for Lori Lopez was at least 50 minutes. This time consisted of direct patient care which included counseling, coordinating and discussing the patients medical condition as well as time spent coordinating and ensuring that the patient had an appropriate transfer plan in place. Procedures Performed: none - Results and Findings Results and Findings: Laboratory Results - last 24 hr 12/28/17 12/28/17 12/28/17 21:31 22:00 22:00 WBC 9.1 RBC 3.77 L Hgb 13.0 Hct 38.1 MCV 101.1 H MCH 34.5 H MCHC 34.1 RDW 16.7 H Plt Count 193 MPV 10.5 Immature Gran % (Auto) 0.30 Immature Gran # (Auto) 0.03 Neutrophils % 76.2 H Lymphocytes % 15.4 L Monocytes % 7.9 Eosinophils % 0.0 Basophils % 0.2 Nucleated RBC % 0.0 Neutrophils # 6.9 H Lymphocytes # 1.40 L Monocytes # 0.7 Eosinophils # 0.0 Absolute Basophils 0.0 PT 11.4 H INR (Anticoag Therapy) 1.14 H PTT ([place]) 26.3 pCO2 26.8 L pO2 54.5 L HCO3 22.1 Total CO2 23.0 Base Excess 0.8 ABG pH 7.54 H ABG O2 Sat (Measured) 92.2 L Sodium Plasma Sodium Potassium Chloride Carbon Dioxide Anion Gap BUN Creatinine Est GFR (Non-Af Amer) BUN/Creatinine Ratio Random Glucose Lactic Acid, Venous Calcium Calcium Adj for Albumin Total Bilirubin AST ALT Alkaline Phosphatase Ammonia Creatine Kinase CK-MB (CK-2) CK-MB (CK-2) Rel Index Troponin I B-Natriuretic Peptide Total Protein Albumin Lipase Urine Color Urine Appearance Urine pH Ur Specific [place] Urine Protein Urine Glucose (UA) Urine Ketones Urine Blood Urine Nitrate Urine Bilirubin Urine Ictotest Prot Sulfosalicylic Acd Urine Urobilinogen Ur Leukocyte Esterase Urine RBC Urine WBC Ur Epithelial Cells Urine Bacteria Hyaline Casts Urine Culture Comments Ethyl Alcohol 12/28/17 12/28/17 12/28/17 22:00 22:00 22:00 WBC RBC Hgb Hct MCV MCH MCHC RDW Plt Count MPV Immature Gran % (Auto) Immature Gran # (Auto) Neutrophils % Lymphocytes % Monocytes % Eosinophils % Basophils % Nucleated RBC % Neutrophils # Lymphocytes # Monocytes # Eosinophils # Absolute Basophils PT INR (Anticoag Therapy) PTT ([place]) pCO2 pO2 HCO3 Total CO2 Base Excess ABG pH ABG O2 Sat (Measured) Sodium 139 Plasma Sodium 139 Potassium 3.7 D Chloride 102 Carbon Dioxide 28.6 Anion Gap 12.1 BUN 6 D Creatinine 0.87 Est GFR (Non-Af Amer) 71 D BUN/Creatinine Ratio 6.9 L Random Glucose 96 Lactic Acid, Venous 2.7 H* Calcium 8.4 Calcium Adj for Albumin 9.5 Total Bilirubin 3.4 H AST 146 H ALT 46 Alkaline Phosphatase 354 H Ammonia Less than 17.0 Creatine Kinase CK-MB (CK-2) CK-MB (CK-2) Rel Index Troponin I 2.666 H* B-Natriuretic Peptide Total Protein 6.4 Albumin 2.2 L Lipase 26 L Urine Color Urine Appearance Urine pH Ur Specific [place] Urine Protein Urine Glucose (UA) Urine Ketones Urine Blood Urine Nitrate Urine Bilirubin Urine Ictotest Prot Sulfosalicylic Acd Urine Urobilinogen Ur Leukocyte Esterase Urine RBC Urine WBC Ur Epithelial Cells Urine Bacteria Hyaline Casts Urine Culture Comments Ethyl Alcohol 12/28/17 12/28/17 12/29/17 22:00 22:16 00:20 WBC RBC Hgb Hct MCV MCH MCHC RDW Plt Count MPV Immature Gran % (Auto) Immature Gran # (Auto) Neutrophils % Lymphocytes % Monocytes % Eosinophils % Basophils % Nucleated RBC % Neutrophils # Lymphocytes # Monocytes # Eosinophils # Absolute Basophils PT INR (Anticoag Therapy) PTT ([place]) pCO2 pO2 HCO3 Total CO2 Base Excess ABG pH ABG O2 Sat (Measured) Sodium Plasma Sodium Potassium Chloride Carbon Dioxide Anion Gap BUN Creatinine Est GFR (Non-Af Amer) BUN/Creatinine Ratio Random Glucose Lactic Acid, Venous Calcium Calcium Adj for Albumin Total Bilirubin AST ALT Alkaline Phosphatase Ammonia Creatine Kinase CK-MB (CK-2) CK-MB (CK-2) Rel Index Troponin I 2.581 H* B-Natriuretic Peptide Total Protein Albumin Lipase Urine Color [place] Urine Appearance Slightly cloudy Urine pH 6.0 Ur Specific [place] 1.025 Urine Protein 15 H Urine Glucose (UA) 100 H Urine Ketones 15 Urine Blood Negative Urine Nitrate Positive H Urine Bilirubin 3 H Urine Ictotest Positive H Prot Sulfosalicylic Acd Negative Urine Urobilinogen 2.0 H Ur Leukocyte Esterase Negative Urine RBC None seen Urine WBC Trace H Ur Epithelial Cells 0-5 Urine Bacteria Trace Hyaline Casts Trace Urine Culture Comments Culture to follow Ethyl Alcohol Less than 3.0 12/29/17 12/29/17 12/29/17 00:20 00:20 00:20 WBC RBC Hgb Hct MCV MCH MCHC RDW Plt Count MPV Immature Gran % (Auto) Immature Gran # (Auto) Neutrophils % Lymphocytes % Monocytes % Eosinophils % Basophils % Nucleated RBC % Neutrophils # Lymphocytes # Monocytes # Eosinophils # Absolute Basophils PT INR (Anticoag Therapy) PTT ([place]) pCO2 pO2 HCO3 Total CO2 Base Excess ABG pH ABG O2 Sat (Measured) Sodium Plasma Sodium Potassium Chloride Carbon Dioxide Anion Gap BUN Creatinine Est GFR (Non-Af Amer) BUN/Creatinine Ratio Random Glucose Lactic Acid, Venous 1.5 Calcium Calcium Adj for Albumin Total Bilirubin AST ALT Alkaline Phosphatase Ammonia Creatine Kinase 200 CK-MB (CK-2) CK-MB (CK-2) Rel Index Troponin I B-Natriuretic Peptide 11268 H Total Protein Albumin Lipase Urine Color Urine Appearance Urine pH Ur Specific [place] Urine Protein Urine Glucose (UA) Urine Ketones Urine Blood Urine Nitrate Urine Bilirubin Urine Ictotest Prot Sulfosalicylic Acd Urine Urobilinogen Ur Leukocyte Esterase Urine RBC Urine WBC Ur Epithelial Cells Urine Bacteria Hyaline Casts Urine Culture Comments Ethyl Alcohol 12/29/17 12/29/17 03:20 09:29 WBC RBC Hgb Hct MCV MCH MCHC RDW Plt Count MPV Immature Gran % (Auto) Immature Gran # (Auto) Neutrophils % Lymphocytes % Monocytes % Eosinophils % Basophils % Nucleated RBC % Neutrophils # Lymphocytes # Monocytes # Eosinophils # Absolute Basophils PT INR (Anticoag Therapy) PTT ([place]) pCO2 pO2 HCO3 Total CO2 Base Excess ABG pH ABG O2 Sat (Measured) Sodium Plasma Sodium Potassium Chloride Carbon Dioxide Anion Gap BUN Creatinine Est GFR (Non-Af Amer) BUN/Creatinine Ratio Random Glucose Lactic Acid, Venous Calcium Calcium Adj for Albumin Total Bilirubin AST ALT Alkaline Phosphatase Ammonia Creatine Kinase 214 CK-MB (CK-2) 3.6 CK-MB (CK-2) Rel Index 1.7 Troponin I 3.173 H* 2.975 H* B-Natriuretic Peptide Total Protein Albumin Lipase Urine Color Urine Appearance Urine pH Ur Specific [place] Urine Protein Urine Glucose (UA) Urine Ketones Urine Blood Urine Nitrate Urine Bilirubin Urine Ictotest Prot Sulfosalicylic Acd Urine Urobilinogen Ur Leukocyte Esterase Urine RBC Urine WBC Ur Epithelial Cells Urine Bacteria Hyaline Casts Urine Culture Comments Ethyl Alcohol - Medications Medications: Active Medications Discontinued Medications Adenosine (Adenocard) 6 mg IV ONCE ONE Stop: 12/29/17 01:04 Last Admin: 12/29/17 01:03 Dose: 6 mg Adenosine (Adenocard) 12 mg IV ONCE ONE Stop: 12/29/17 01:07 Last Admin: 12/29/17 01:06 Dose: 12 mg Alprazolam (Xanax) 1 mg PO ONCE STA Stop: 12/29/17 08:46 Last Admin: 12/29/17 08:54 Dose: 1 mg Aspirin (Aspirin Enteric Coated) 325 mg PO DAILY ONE Stop: 12/29/17 01:44 Last Admin: 12/29/17 01:57 Dose: 325 mg Enoxaparin Sodium (Lovenox) 60 mg SC Q12H AP Stop: 01/28/18 01:46 Last Admin: 12/29/17 01:55 Dose: 60 mg Heparin Sodium (Porcine) (Heparin Sodium) 3,800 units 60 units/kg (3800 units) IV ONCE ONE Stop: 12/29/17 08:59 Last Admin: 12/29/17 09:11 Dose: 3,800 units Sodium Chloride (Sodium Chloride 0.9%) 1,000 mls @ 999 mls/hr IV .Q1H1M ONE Stop: 12/28/17 22:33 Last Infusion: 12/28/17 23:13 Dose: Infused Ceftriaxone Sodium 1,000 mg/ (Dextrose/Water) 200 mls @ 200 mls/hr IV ONCE ONE; Protocol Stop: 12/28/17 23:40 Last Infusion: 12/28/17 23:45 Dose: Infused Sodium Chloride (Sodium Chloride 0.9%) 1,000 mls @ 999 mls/hr IV .Q1H1M ONE Stop: 12/29/17 00:13 Last Admin: 12/28/17 23:15 Dose: 999 mls/hr Sodium Chloride (Sodium Chloride 0.9%) 1,000 mls @ 999 mls/hr IV .Q1H1M ONE Stop: 12/29/17 02:15 Last Admin: 12/29/17 01:24 Dose: 999 mls/hr Sodium Chloride (Sodium Chloride 0.9%) 1,000 mls @ 75 mls/hr IV .[id number] PRN PRN Reason: HYDRATION Stop: 01/28/18 02:27 Last Admin: 12/29/17 02:28 Dose: 75 mls/hr Heparin Sodium/Dextrose (Heparin 25,000 Units/D5w 500 Ml) 25,000 units in 500 mls @ 0 mls/hr IV TITR PRN; Protocol PRN Reason: Anticoagulation Stop: 01/28/18 08:58 Last Admin: 12/29/17 09:15 Dose: 12 unit/kg/hr, 15.12 mls/hr Ondansetron HCl (Zofran) 4 mg IV ONCE ONE Stop: 12/28/17 21:34 Last Admin: 12/28/17 21:45 Dose: 4 mg - Disposition Disposition: Short Term Hospital Inpatient Condition: Stable Discharge Date: 12/29/17 Discharge Time: 11:00
== END 2017-12-29 10:48 | disposition short-term general hospital (02) ==
LOC: ER 21:08 → MS 21:08
PROVIDERS: ADMIT Family Medicine; ATTEND Internal Medicine
CPT/HCPCS: 36415; 36600; 70450; 71010; 71045; 76700; 80053; 80320; 81001; 82140; 82550; 82553; 82803; 83519; 83605; 83690; 83880; 84484; 85025; 85610; 85730; 87040; 87086; 93005; 96361; 96365; 96375; 96376; 99285; G0378; G0481; J2405

== ENCOUNTER 2019-04-12 03:55 | Observation (INO) ==
[2019-04-12] MEDS ORDERED: ALBUTEROL SULFATE/IPRATROPIUM 3 ML NEBU IH ONE (04:01)
[2019-04-12] MEDS ORDERED: METHYLPREDNISOLONE SOD SUCC/PF 125 MG/2 ML VIAL IV ONE (04:03)
[2019-04-12] MEDS ORDERED: METHYLPREDNISOLONE SOD SUCC/PF 125 MG/2 ML VIAL ONE (04:05)
--- NOTE | 2019-04-12 04:09 | ERNOTE ---
Dyspnea - General Presenting Symptoms: shortness of breath Time Seen by Provider: 04/12/19 04:01 Source: patient, EMS Exam Limitations: clinical condition - Immun/Allergies/Home Medications Immunizations: IMMUNIZATION HX Immunizations Up to Date Yes History of Influenza Vaccine No Hx Pneumococcal Vaccination No Allergies/Adverse Reactions: Allergies phenobarbital Allergy (Intermediate, Verified 04/12/19 08:18) seizure grass pollen Allergy (Mild, Verified 04/12/19 08:18) unknown house dust Allergy (Mild, Verified 04/12/19 08:18) unknown mold Allergy (Unknown, Verified 04/12/19 08:18) unknown amoxicillin trihydrate [From Augmentin] Adverse Reaction (Mild, Verified 04/12/19 08:18) Vomiting egg Adverse Reaction (Mild, Verified 04/12/19 08:18) runny nose ibuprofen Adverse Reaction (Mild, Verified 04/12/19 08:18) Vomiting potassium clavulanate [From Augmentin] Adverse Reaction (Mild, Verified 04/12/19 08:18) Vomiting promethazine HCl [From Phenergan] Adverse Reaction (Mild, Verified 04/12/19 08:18) Vomiting Home Medications: HOME MEDICATIONS Albuterol Sulfate/Ipratropium [Duoneb 2.5-0.5MG/3ML Soln] 3 ml INHALATION Q6H 12/28/17 [Last Taken Unknown] formoterol fumarate 20 mcg/2 mL solution for nebulization 2 ml IH BID 03/05/18 [Last Taken Unknown] fluticasone 250 mcg-salmeterol 50 mcg/dose blistr powdr for inhalation 1 inh IH BID #60 ea 10/13/18 [Last Taken Unknown] gabapentin 300 mg capsule 300 mg PO TID PRN 01/20/19 [Last Taken Unknown] levetiracetam 1,000 mg tablet 500 mg PO BID #30 tab 02/18/19 [Last Taken Unknown] albuterol sulfate 90 mcg/actuation aerosol inhaler 2 puff IH Q4H PRN #8.5 g 02/23/19 [Last Taken Unknown] lisinopril 10 mg tablet 10 mg PO DAILY #90 tab 03/04/19 [Last Taken Unknown] folic acid 1 mg tablet 1 mg PO DAILY 30 Days #30 tab 03/08/19 [Last Taken Unknown] baclofen 10 mg tablet 10 mg PO TID PRN #30 tab 03/22/19 [Last Taken Unknown] naproxen 500 mg tablet,delayed release 500 mg PO BID PRN #60 tab 03/22/19 [Last Taken Unknown] duloxetine 60 mg capsule,delayed release 60 mg PO DAILY #30 cap 03/29/19 [Last Taken Unknown] trazodone 50 mg tablet 50 mg PO HS PRN #30 tab 03/29/19 [Last Taken Unknown] Multivitamin [Multivitamins] 1 ea PO DAILY 04/12/19 [Last Taken Unknown] - History of Present Illness Narrative: Patient presented to the ED by EMS due to shortness of breath. Upon arrival to her home EMS found her oxygen saturations 78%. Upon arrival to the ER she was receiving albuterol neb with oxygen at 7-1/2 L and oxygen saturations were 87%. Patient is anxious and air hungry Severity: severe Treatment VARNISHER: by patient, paramedics, albuterol Initiating event: Reports: unknown Frequency of episodes: Reports: frequent episodes Modifying Factors - (Improves): Reports: albuterol, oxygen Modifying Factors (Worsens): Reports: activity Review of Systems - Review of Systems Constitutional: Present: recent illness, chills ENT: Present: nose congestion, nasal drainage Respiratory: Present: shortness of breath, cough Cardiology: Absent: chest pain Gastrointestinal/Abdominal: Absent: nausea, vomiting Skin: Absent: rash, lesions Neurological: Present: dizziness/light-headedness Endocrine: Present: excessive sweating Medical History (Last Reviewed 04/12/19 @ 04:28 by Roland Miranda DO) Hypokalemia (Acute) Onset Date: Unknown Oxygen dependent (Chronic) Onset Date: Unknown Chronic respiratory failure with hypoxia, on home O2 therapy (Chronic) Onset Date: Unknown Tobacco abuse (Chronic) Onset Date: Unknown Osteoarthritis (Chronic) Onset Date: Unknown Macrocytosis without anemia (Chronic) Onset Date: 10/11/15 Hypothyroid (Chronic) Onset Date: 2013 Hyperlipidemia (Chronic) Onset Date: 04/04/16 Club foot (Chronic) Onset Date: Unknown Essential hypertension (Chronic) Onset Date: 10/11/15 Anxiety (Chronic) Onset Date: Unknown Seizure disorder (Chronic) Onset Date: Unknown COPD exacerbation (Chronic) Onset Date: Unknown Alcoholic cardiomyopathy (Chronic) Onset Date: Unknown Cirrhosis of liver (Chronic) Onset Date: Unknown Alcohol abuse (Chronic) Onset Date: 10/11/15 GERD (gastroesophageal reflux disease) (Chronic) Onset Date: Unknown Back pain (Chronic) Onset Date: Unknown Seizure (Chronic) Onset Date: 2013 COPD (chronic obstructive pulmonary disease) (Chronic) Onset Date: 10/12/16 Edema extremities Onset Date: Unknown Panic attacks Onset Date: Unknown Alcohol intoxication Onset Date: Unknown Concussion Onset Date: Unknown Pneumonia Onset Date: Unknown Rib pain Onset Date: Unknown UTI (urinary tract infection) Onset Date: Unknown Surgical History: Surgical History (Last Reviewed 04/12/19 @ 04:28 by Roland Miranda DO) History of carpal tunnel release (Resolved) Onset Date: Unknown bilateral H/O section Onset Date: Unknown x 3 History of colon surgery Onset Date: 2002 sigmoid mesenteric cyst removed History of esophagogastroduodenoscopy Onset Date: 01/26/02 01/26/02 Dr Mckeon-extensive peptic ulcer disease w/antral gastritis and duodenitis. History of lower leg fracture Onset Date: 02/04/13 external fixator: right pilon fracture of leg; with [address] Wilson [facility] Status post cholecystectomy Onset Date: Unknown open ovarian surgery Onset Date: Unknown left ovary removed Family History: Family History (Last Reviewed 04/12/19 @ 04:28 by Roland Miranda DO) Father , age 53-[place] Hypertension Myocardial infarction Mother , age 63-ovarian cancer Cancer ovarian cancer-age 60 Sister Alive and well 2 sisters Arthritis 1 sister Brother Heart disease had stent Social History: (Last Reviewed 04/12/19 @ 04:28 by Roland Miranda DO) Social History: Marital status: lives independently: Yes household members: none number of children: 3 current occupational status: disabled Service: No Tobacco: Smoking Status: Current every day smoker Smoking cigarettes per day: 10 Alcohol: alcohol intake: current Alcohol type: beer alcohol intake frequency: holiday/special occasion Substance Use: substance use type: former substance user Dietary Habits: caffeine: Yes Type: carbonated beverages, tea high-fat food intake: 3 or more times/day Personal Safety: victim of physical abuse: No victim of emotional abuse: No Physical Exam - Physical Exam General Appearance: Present: wd/wn, alert, moderate distress Head Exam: Present: normal inspection, no evidence of injury Ears, Nose, Throat: Present: normal except -, dry mucous membranes Neck: Present: normal inspection, supple Respiratory: Present: accessory muscle use, decreased breath sounds, wheezing Cardiovascular/Chest: Present: no murmur, tachycardia Gastrointestinal/Abdominal: Present: normal bowel sounds, nontender, nondistended Extremity Exam: Present: normal inspection, no edema Neurological Exam: Present: alert, no motor/sensory deficits Skin Exam: Present: normal color, warm/dry Lymphatic Exam: Present: no adenopathy Progress - Results and Orders Patient's Lab Results:: I have reviewed the patient's lab results. Results and Orders: Laboratory Tests 04/12/19 04/12/19 04/12/19 04:15 04:15 04:15 WBC 10.7 H Hgb 14.7 Hct 44.6 Plt Count 295 pCO2 pO2 HCO3 Total CO2 Base Excess ABG pH ABG O2 Sat (Measured) Sodium 138 Potassium 3.8 Chloride 100 Anion Gap 16.2 H BUN 7 Creatinine 0.83 Random Glucose 150 H Lactic Acid, Venous 2.9 H* Calcium 9.0 Total Bilirubin 0.9 AST 58 H ALT 35 Alkaline Phosphatase 211 H Troponin I Less than 0.017 B-Natriuretic Peptide 261 H Total Protein 8.7 H Influenza Type A Ag Influenza Type B Ag 04/12/19 04/12/19 04:15 04:30 WBC Hgb Hct Plt Count pCO2 31.7 L pO2 52.7 L HCO3 19.6 L Total CO2 20.5 Base Excess -4.1 L ABG pH 7.41 ABG O2 Sat (Measured) 88.0 L Sodium Potassium Chloride Anion Gap BUN Creatinine Random Glucose Lactic Acid, Venous Calcium Total Bilirubin AST ALT Alkaline Phosphatase Troponin I B-Natriuretic Peptide Total Protein Influenza Type A Ag Negative Influenza Type B Ag Negative - Vital Signs Patient's Vital Signs:: I have reviewed the patient's vital signs. - EKG EKG #1 EKG: supraventricular tachycardia - sinus tach EKG read: Interp. by me - X-Ray X-Ray #1 X-Ray: chest Interpretation: Interp. by me X-ray Comments: No infiltrate or effusion. No pneumothorax. - CT/Ultrasound CT/Ultrasound Narrative: CTA chest: No thoracic aortic aneurysm or dissection. No definite central or peripheral pulmonary embolus. No alveolar infiltrate or pleural effusions noted. - Progress/Reassessment Progress Note-Subjective: 04/12/19 06:[address] Vázquez she agrees with admission. Departure Clinical Impression: COPD exacerbation - Departure Disposition: Still a patient Condition: Fair
[2019-04-12] MEDS ORDERED: LORazepam 2 MG/ML DISP.SYRIN IV ONE (04:21)
[2019-04-12 04:22] LABS: Hematocrit 44.6 % (37.0-47.0); Hemoglobin 14.7 gm/dL (12.5-16.0); Mean Cell Volume 100.2 fl (78-100); Mean Platelet Volume 9.4 fl (8-12.5); Neutrophil # 7.6 K/mm3 (1.3-6.0); Neutrophil % 71.3 % (42-75.0); Platelet Count 295 K/mm3 (150-450); Red Blood Count 4.45 M/mm3 (4.2-5.4); Red Cell Distribution Width 13.3 % (11.5-14.0); White Blood Count 10.7 K/mm3 (4.0-10.5)
[2019-04-12 04:39] LABS: Troponin I Less than 0.017 ng/mL (0.00-0.10)
[2019-04-12 04:41] LABS: ALT 35 U/L (19-67); AST 58 U/L (0-48); Albumin * 3.7 gm/dl (3.4-5.0); Alkaline Phosphatase * 211 U/L (50-170); Anion Gap 16.2 mmol/L (6.8-13.8); BNP * 261 pg/mL (5-205); BUN/Creatinine Ratio 8.4 (9.0-21.6); Bilirubin, Total 0.9 mg/dL (0.0-1.1); Blood Urea Nitrogen 7 mg/dL (3-23); Ca. Corrected For Albumin 8.9 mg/dL (8.4-10.2); Carbon Dioxide 25.6 mmol/L (24-32.6); Chloride 100 mmol/L (97-106); Glucose * 150 mg/dL (70-110); Potassium 3.8 mmol/L (3.4-4.6); Sodium 138 mmol/L (132-142); Total Protein 8.7 gm/dL (6.2-8.2)
[2019-04-12] MEDS ORDERED: cefTRIAXone SODIUM 1,000 MG/100 ML BAG IV ONE (05:38)
[2019-04-12] MEDS ORDERED: traZODone HCL 50 MG TABLET PO PRN (08:57)
[2019-04-12] MEDS ORDERED: ALPRAZolam 0.25 MG TABLET PO ONE (09:22)
[2019-04-12] MEDS: LISINOPRIL 10 MG TABLET PO SCH (09:36)
[2019-04-12] MEDS: DULoxetine HCL 30 MG CAPSULE.SA PO SCH (09:36)
[2019-04-12] MEDS: FOLIC ACID 1 MG TABLET PO SCH (09:36)
[2019-04-12] MEDS: levETIRAcetam 500 MG TABLET PO SCH ×2 (09:36→20:16)
[2019-04-12] MEDS: FLUTICASONE PROPION/SALMETEROL 14 PUFF DISK.W.DEV IH SCH ×2 (09:37→20:16)
[2019-04-12] MEDS: BACLOFEN 10 MG TABLET PO PRN ×2 (09:44→17:25)
[2019-04-12] MEDS: NAPROXEN 500 MG TABLET PO PRN ×2 (09:44→20:15)
--- NOTE | 2019-04-12 09:48 | HP ---
Chief Complaint - Chief Complaint Date of Service: 04/12/19 Time of Service: 08:28 Chief Complaint: Shortness of breath x1 week History of Present Illness: 58-year-old female with a past medical history of COPD on home oxygen, hyperte nsion, hyperlipidemia, hypothyroidism, seizure disorder, tobacco abuse, osteoarthritis, liver cirrhosis, anxiety presents from home with complaints of shortness of breath. Symptoms began about a week ago and have been progressively worsening. She does continue to smoke cigarettes but has not been able to for the past 3 days due to her worsening symptoms. She states she had a lot of difficulty breathing last night. Her friend was with her and noted that her oxygen tubing had lots of holes in it from the cat chewing on it. EMS was called and she was found to be hypoxic with O2 sats in the 70s. She was brought to the emergency department. Her symptoms are associated with increased sputum production, and cough. In the emergency department she was found to have WBC count of 10.7, ABG 7.41, O2 sat 88, PO2 52.7, PCO2 31.7, bicarb 19.6, lactic acid of 2.9, chest x-ray showed chronic no acute cardiopulmonary disease, CT angios was performed that was negative for PE and showed granulomatous disease. She was placed on oxygen, started on ceftriaxone and methylprednisolone with improvement of her symptoms. She is admitted for COPD exacerbation. Medical History (Last Reviewed 04/12/19 @ 09:09 by Gabby Lopez RN) Hypokalemia (Acute) Onset Date: Unknown Oxygen dependent (Chronic) Onset Date: Unknown Chronic respiratory failure with hypoxia, on home O2 therapy (Chronic) Onset Date: Unknown Tobacco abuse (Chronic) Onset Date: Unknown Osteoarthritis (Chronic) Onset Date: Unknown Macrocytosis without anemia (Chronic) Onset Date: 10/11/15 Hypothyroid (Chronic) Onset Date: 2013 Hyperlipidemia (Chronic) Onset Date: 04/04/16 Club foot (Chronic) Onset Date: Unknown Essential hypertension (Chronic) Onset Date: 10/11/15 Anxiety (Chronic) Onset Date: Unknown Seizure disorder (Chronic) Onset Date: Unknown COPD exacerbation (Chronic) Onset Date: Unknown Alcoholic cardiomyopathy (Chronic) Onset Date: Unknown Cirrhosis of liver (Chronic) Onset Date: Unknown Alcohol abuse (Chronic) Onset Date: 10/11/15 GERD (gastroesophageal reflux disease) (Chronic) Onset Date: Unknown Back pain (Chronic) Onset Date: Unknown Seizure (Chronic) Onset Date: 2013 COPD (chronic obstructive pulmonary disease) (Chronic) Onset Date: 10/12/16 Edema extremities Onset Date: Unknown Panic attacks Onset Date: Unknown Alcohol intoxication Onset Date: Unknown Concussion Onset Date: Unknown Pneumonia Onset Date: Unknown Rib pain Onset Date: Unknown UTI (urinary tract infection) Onset Date: Unknown Surgical History: Surgical History (Last Reviewed 04/12/19 @ 09:09 by Gabby Lopez RN) History of carpal tunnel release (Resolved) Onset Date: Unknown bilateral H/O section Onset Date: Unknown x 3 History of colon surgery Onset Date: 2002 sigmoid mesenteric cyst removed History of esophagogastroduodenoscopy Onset Date: 01/26/02 01/26/02 Dr Mckeon-extensive peptic ulcer disease w/antral gastritis and duodenitis. History of lower leg fracture Onset Date: 02/04/13 external fixator: right pilon fracture of leg; with [address] Wilson [facility] Status post cholecystectomy Onset Date: Unknown open ovarian surgery Onset Date: Unknown left ovary removed Family History: Family History (Last Reviewed 04/12/19 @ 09:09 by Gabby Lopez RN) Father , age 53-[place] Myocardial infarction Hypertension Mother , age 63-ovarian cancer Cancer ovarian cancer-age 60 Sister Arthritis 1 sister Alive and well 2 sisters Brother Heart disease had stent Social History: (Last Reviewed 04/12/19 @ 09:09 by Gabby Lopez RN) Social History: Marital status: lives independently: Yes household members: none number of children: 3 current occupational status: disabled Service: No Tobacco: Smoking Status: Current every day smoker Smoking cigarettes per day: 10 Alcohol: alcohol intake: current Alcohol type: beer alcohol intake frequency: holiday/special occasion Substance Use: substance use type: former substance user Dietary Habits: caffeine: Yes Type: carbonated beverages, tea high-fat food intake: 3 or more times/day Personal Safety: victim of physical abuse: No victim of emotional abuse: No Review Of Systems (GEN) - Review of Systems Generalized/Overall Review: Absent: Fever Respiratory: Present: Cough, Shortness of Breath Cardiac: Absent: Chest Pain Abdominal: Absent: Abdominal Pain Musculoskeletal: Present: Joint Pain, Back Pain, Muscle Pain Neurological: Present: Anxiety Misc: All systems neg except as marked Immunizations: IMMUNIZATION HX Immunizations Up to Date Yes History of Influenza Vaccine No Hx Pneumococcal Vaccination Yes Allergies/Adverse Reactions: Allergies Allergy/AdvReac Type Severity Reaction Status Date / Time phenobarbital Allergy Intermediate seizure Verified 04/12/19 08:18 grass pollen Allergy Mild unknown Verified 04/12/19 08:18 house dust Allergy Mild unknown Verified 04/12/19 08:18 mold Allergy Unknown unknown Verified 04/12/19 08:18 amoxicillin trihydrate AdvReac Mild Vomiting Verified 04/12/19 08:18 [From Augmentin] egg AdvReac Mild runny nose Verified 04/12/19 08:18 ibuprofen AdvReac Mild Vomiting Verified 04/12/19 08:18 potassium clavulanate AdvReac Mild Vomiting Verified 04/12/19 08:18 [From Augmentin] promethazine HCl AdvReac Mild Vomiting Verified 04/12/19 08:18 [From Phenergan] Home Medications: HOME MEDICATIONS Albuterol Sulfate/Ipratropium [Duoneb 2.5-0.5MG/3ML Soln] 3 ml INHALATION Q6H 12/28/17 [Last Taken Unknown] formoterol fumarate 20 mcg/2 mL solution for nebulization 2 ml IH BID 03/05/18 [Last Taken Unknown] fluticasone 250 mcg-salmeterol 50 mcg/dose blistr powdr for inhalation 1 inh IH BID #60 ea 10/13/18 [Last Taken Unknown] gabapentin 300 mg capsule 300 mg PO TID PRN 01/20/19 [Last Taken Unknown] levetiracetam 1,000 mg tablet 500 mg PO BID #30 tab 02/18/19 [Last Taken Unknown] albuterol sulfate 90 mcg/actuation aerosol inhaler 2 puff IH Q4H PRN #8.5 g 02/23/19 [Last Taken Unknown] lisinopril 10 mg tablet 10 mg PO DAILY #90 tab 03/04/19 [Last Taken Unknown] folic acid 1 mg tablet 1 mg PO DAILY 30 Days #30 tab 03/08/19 [Last Taken Unknown] baclofen 10 mg tablet 10 mg PO TID PRN #30 tab 03/22/19 [Last Taken Unknown] naproxen 500 mg tablet,delayed release 500 mg PO BID PRN #60 tab 03/22/19 [Last Taken Unknown] duloxetine 60 mg capsule,delayed release 60 mg PO DAILY #30 cap 03/29/19 [Last Taken Unknown] trazodone 50 mg tablet 50 mg PO HS PRN #30 tab 03/29/19 [Last Taken Unknown] Multivitamin [Multivitamins] 1 ea PO DAILY 04/12/19 [Last Taken Unknown] Exam - Exam Vital Signs: Vital Signs - Last Taken Temp 37.0 C 04/12/19 07:05 Pulse 101 H 04/12/19 09:36 Resp 24 H 04/12/19 07:05 BP 144/85 H 04/12/19 09:36 Pulse Ox 94 04/12/19 07:11 Constitutional: Present: Alert, Cooperative, Well developed, Well nourished, Middle aged ENT Exam: Present: hearing grossly normal Eye Exam: bilateral eye: normal inspection, PERRL, EOMI Neck: Present: non-tender, supple. Absent: lymphadenopathy (R), lymphadenopathy (L) Back Exam: Present: normal inspection, no CVA tenderness, no vertebral tenderness Respiratory: Present: no accessory muscle use, decreased breath sounds, wheezing - Expiratory wheezes throughout all lung hunt. Absent: crackles, rhonchi Cardiovascular/Chest: Present: normal peripheral pulses, no edema, no murmur, tachycardia Peripheral Pulses: dorsalis-pedis (R): 1+, dorsalis-pedis (L): 1+ Abdomen: Present: Normal bowel sounds, soft, nontender Extremity: Present: no pedal edema Skin Exam: Present: normal color, warm/dry Neurologic: Present: alert, normal mood/affect Appearance: Present: appropriate appearance, appropriate insight Eye contact: Present: cooperative Thoughts: Present: normal thought pattern, normal mood /affect Diagnostic Studies: Abnormal Lab Results 04/12/19 04/12/19 04/12/19 Range/Units 04:15 04:15 04:15 WBC 10.7 H (4.0-10.5) K/mm3 MCV 100.2 H (78-100) fl MCH 33.0 H (27-31) pg Lymphocytes % 17.2 L (20-51) % Neutrophils # 7.6 H (1.3-6.0) K/mm3 D-Dimer 1.63 H (0.19-0.49) ug/mL pCO2 (32.0-45.0) mmHg pO2 (83.0-108.0) mmHg HCO3 (21.0-28.0) mmol/L Base Excess (-2.0-3.0) mmol/L ABG O2 Sat (Measured) (94.0-98.0) % Anion Gap 16.2 H (6.8-13.8) mmol/L BUN/Creatinine Ratio 8.4 L (9.0-21.6) Random Glucose 150 H (70-110) mg/dL Lactic Acid, Venous (0.4-2.0) mmol/L AST 58 H (0-48) U/L Alkaline Phosphatase 211 H (50-170) U/L B-Natriuretic Peptide 261 H (5-205) pg/mL Total Protein 8.7 H (6.2-8.2) gm/dL 04/12/19 04/12/19 04/12/19 Range/Units 04:15 04:30 07:13 WBC (4.0-10.5) K/mm3 MCV (78-100) fl MCH (27-31) pg Lymphocytes % (20-51) % Neutrophils # (1.3-6.0) K/mm3 D-Dimer (0.19-0.49) ug/mL pCO2 31.7 L (32.0-45.0) mmHg pO2 52.7 L (83.0-108.0) mmHg HCO3 19.6 L (21.0-28.0) mmol/L Base Excess -4.1 L (-2.0-3.0) mmol/L ABG O2 Sat (Measured) 88.0 L (94.0-98.0) % Anion Gap (6.8-13.8) mmol/L BUN/Creatinine Ratio (9.0-21.6) Random Glucose (70-110) mg/dL Lactic Acid, Venous 2.9 H* 2.1 H (0.4-2.0) mmol/L AST (0-48) U/L Alkaline Phosphatase (50-170) U/L B-Natriuretic Peptide (5-205) pg/mL Total Protein (6.2-8.2) gm/dL Laboratory Results WBC 10.7 K/mm3 (4.0-10.5) H 04/12/19 04:15 RBC 4.45 M/mm3 (4.2-5.4) 04/12/19 04:15 Hgb 14.7 gm/dL (12.5-16.0) 04/12/19 04:15 Hct 44.6 % (37.0-47.0) 04/12/19 04:15 MCV 100.2 fl (78-100) H 04/12/19 04:15 MCH 33.0 pg (27-31) H 04/12/19 04:15 MCHC 33.0 g/dl (32-36) 04/12/19 04:15 RDW 13.3 % (11.5-14.0) 04/12/19 04:15 Plt Count 295 K/mm3 (150-450) 04/12/19 04:15 MPV 9.4 fl (8-12.5) 04/12/19 04:15 Immature Gran % (Auto) 0.30 % (0.001-0.429) 04/12/19 04:15 Immature Gran # (Auto) 0.03 K/mm3 (0.000-0.0310) 04/12/19 04:15 Neutrophils % 71.3 % (42-75.0) 04/12/19 04:15 Lymphocytes % 17.2 % (20-51) L 04/12/19 04:15 Monocytes % 8.3 % (0.0-9) 04/12/19 04:15 Eosinophils % 2.0 % (0.0-3.0) 04/12/19 04:15 Basophils % 0.9 % (0.0-1.0) 04/12/19 04:15 Nucleated RBC % 0.0 k/mm3 (0-1) 04/12/19 04:15 Neutrophils # 7.6 K/mm3 (1.3-6.0) H 04/12/19 04:15 Lymphocytes # 1.84 k/mm3 (1.5-3.5) 04/12/19 04:15 Monocytes # 0.9 k/mm3 (0.0-1.0) 04/12/19 04:15 Eosinophils # 0.2 k/mm3 (0.0-0.7) 04/12/19 04:15 Absolute Basophils 0.1 k/mm3 (0.0-0.1) 04/12/19 04:15 D-Dimer 1.63 ug/mL (0.19-0.49) H 04/12/19 04:15 pCO2 31.7 mmHg (32.0-45.0) L 04/12/19 04:30 pO2 52.7 mmHg (83.0-108.0) L 04/12/19 04:30 HCO3 19.6 mmol/L (21.0-28.0) L 04/12/19 04:30 Total CO2 20.5 mmol/L (19.0-24.0) 04/12/19 04:30 Base Excess -4.1 mmol/L (-2.0-3.0) L 04/12/19 04:30 ABG pH 7.41 (7.35-7.45) 04/12/19 04:30 ABG O2 Sat (Measured) 88.0 % (94.0-98.0) L 04/12/19 04:30 Sodium 138 mmol/L (132-142) 04/12/19 04:15 Plasma Sodium 139 mmol/L (130-142) 04/12/19 04:15 Potassium 3.8 mmol/L (3.4-4.6) 04/12/19 04:15 Chloride 100 mmol/L (97-106) 04/12/19 04:15 Carbon Dioxide 25.6 mmol/L (24-32.6) 04/12/19 04:15 Anion Gap 16.2 mmol/L (6.8-13.8) H 04/12/19 04:15 BUN 7 mg/dL (3-23) 04/12/19 04:15 Creatinine 0.83 mg/dL (0.4-1.4) 04/12/19 04:15 Est GFR (Non-Af Amer) 75 mL/min (60-130) D 04/12/19 04:15 BUN/Creatinine Ratio 8.4 (9.0-21.6) L 04/12/19 04:15 Random Glucose 150 mg/dL (70-110) H 04/12/19 04:15 Lactic Acid, Venous 2.1 mmol/L (0.4-2.0) H 04/12/19 07:13 Calcium 9.0 mg/dL (7.9-10.9) 04/12/19 04:15 Calcium Adj for Albumin 8.9 mg/dL (8.4-10.2) 04/12/19 04:15 Total Bilirubin 0.9 mg/dL (0.0-1.1) 04/12/19 04:15 AST 58 U/L (0-48) H 04/12/19 04:15 ALT 35 U/L (19-67) 04/12/19 04:15 Alkaline Phosphatase 211 U/L (50-170) H 04/12/19 04:15 Troponin I Less than 0.017 ng/mL (0.00-0.10) 04/12/19 04:15 B-Natriuretic Peptide 261 pg/mL (5-205) H 04/12/19 04:15 Total Protein 8.7 gm/dL (6.2-8.2) H 04/12/19 04:15 Albumin 3.7 gm/dl (3.4-5.0) 04/12/19 04:15 Influenza Type A Ag Negative (NEGATIVE) 04/12/19 04:15 Influenza Type B Ag Negative (NEGATIVE) 04/12/19 04:15 Assessment/Plan - Narrative Narrative: 58-year-old female with a past medical history of COPD on home oxygen, hypertension, hyperlipidemia, hypothyroidism, seizure disorder, tobacco abuse, osteoarthritis, liver cirrhosis, anxiety presents from home with complaints of shortness of breath. Symptoms began about a week ago and have been progressively worsening. She was brought to the emergency department. Her symptoms are associated with increased sputum production, and cough. In the emergency department she was found to have WBC count of 10.7, ABG 7.41, O2 sat 88, PO2 52.7, PCO2 31.7, bicarb 19.6, lactic acid of 2.9, chest x-ray showed chronic no acute cardiopulmonary disease, CT angios was performed that was negative for PE and showed granulomatous disease. She was placed on oxygen, started on ceftriaxone and methylprednisolone with improvement of her symptoms. She is admitted for COPD exacerbation. Plan #1 continue with ceftriaxone 1 g every 24 hours day 1 #2 start prednisone 40 mg orally once a day #3 wean down to baseline home oxygen #4 duo nebs every 4 hours as needed for shortness of breath and wheezing #5 CBC and CMP in the morning #6 resume home medications for comorbidities - Assessment/Plan (1) COPD with exacerbation Problem: Resolved (2) Hypoxia Problem: Acute (3) Generalized anxiety disorder Problem: Chronic (4) Major depressive disorder, recurrent, moderate Problem: Chronic (5) Seizure disorder Problem: Chronic (6) Chronic respiratory failure with hypoxia, on home O2 therapy Problem: Chronic (7) Tobacco abuse Problem: Chronic (8) Osteoarthritis Problem: Chronic Qualifiers: (9) Hyperlipidemia Problem: Chronic Qualifiers: (10) Essential hypertension Problem: Chronic
[2019-04-12] MEDS: predniSONE 20 MG TABLET PO SCH (10:18)
[2019-04-12] MEDS: MULTIVITAMINS 1 CAP CAPSULE PO SCH (10:18)
[2019-04-12] MEDS: FORMOTEROL FUMARATE 20 MCG/2 ML VIAL IH SCH ×2 (10:38→18:22)
[2019-04-12] MEDS: ALBUTEROL SULFATE/IPRATROPIUM 3 ML NEBU IH PRN ×3 (10:38→22:55)
[2019-04-12] MEDS: ALPRAZolam 0.25 MG TABLET PO PRN (17:23)
[2019-04-12] MEDS: GABAPENTIN 300 MG CAPSULE PO PRN (17:25)
[2019-04-13] MEDS: ALPRAZolam 0.25 MG TABLET PO PRN ×2 (00:48→06:07)
[2019-04-13] MEDS ORDERED: DILTIAZEM HCL 5 MG/ML VIAL IV ONE ×2 (00:53→00:59)
[2019-04-13] MEDS: FORMOTEROL FUMARATE 20 MCG/2 ML VIAL IH SCH (06:00)
[2019-04-13] MEDS: ALBUTEROL SULFATE/IPRATROPIUM 3 ML NEBU IH PRN (06:00)
[2019-04-13 06:45] LABS: Hemoglobin 14.4 gm/dL (12.5-16.0); Mean Cell Volume 98.4 fl (78-100); Mean Corpuscular Hemoglobin 32.2 pg (27-31); Mean Corpuscular Hgb Conc 32.7 g/dl (32-36); Mean Platelet Volume 10.8 fl (8-12.5); Platelet Count 276 K/mm3 (150-450); Red Blood Count 4.47 M/mm3 (4.2-5.4); Red Cell Distribution Width 13.2 % (11.5-14.0)
[2019-04-13 06:50] LABS: Total Cells Counted 100
[2019-04-13 07:08] LABS: Albumin * 3.5 gm/dl (3.4-5.0); Anion Gap 19.1 mmol/L (6.8-13.8); BUN/Creatinine Ratio 15.8 (9.0-21.6); Bilirubin, Total 0.4 mg/dL (0.0-1.1); Calcium * 8.9 mg/dL (7.9-10.9); Carbon Dioxide 23.7 mmol/L (24-32.6); Potassium 3.8 mmol/L (3.4-4.6); Total Protein 8.5 gm/dL (6.2-8.2)
[2019-04-13 07:14] LABS: Atypical (Reactive) Lymph 4 % (0-2); Band 3 % (0-2.0); Lymphocyte 15 % (20-51); Monocyte 11 % (0-9); Neutrophil 67 % (42-75); Neutrophil # 11.4 K/mm3 (1.3-6.0)
[2019-04-13 07:15] LABS: Platelet Estimate Normal (NORMAL)
[2019-04-13 07:21] LABS: RBC Morphology Normal (NORMAL); Toxic Granulation 1+
[2019-04-13] MEDS ORDERED: ALPRAZolam 0.25 MG TABLET PO PRN (09:23)
[2019-04-13] MEDS: MULTIVITAMINS 1 CAP CAPSULE PO SCH (09:32)
[2019-04-13] MEDS: predniSONE 20 MG TABLET PO SCH (09:32)
[2019-04-13] MEDS: DULoxetine HCL 30 MG CAPSULE.SA PO SCH (09:32)
[2019-04-13] MEDS: levETIRAcetam 500 MG TABLET PO SCH (09:32)
[2019-04-13] MEDS: FOLIC ACID 1 MG TABLET PO SCH (09:32)
[2019-04-13] MEDS: FLUTICASONE PROPION/SALMETEROL 14 PUFF DISK.W.DEV IH SCH (09:32)
[2019-04-13] MEDS: LISINOPRIL 10 MG TABLET PO SCH (09:32)
[2019-04-13] MEDS: GABAPENTIN 300 MG CAPSULE PO PRN (09:40)
[2019-04-13] MEDS: NAPROXEN 500 MG TABLET PO PRN (09:40)
[2019-04-13] MEDS: BACLOFEN 10 MG TABLET PO PRN (09:40)
[2019-04-13] MEDS: ALBUTEROL SULFATE/IPRATROPIUM 3 ML NEBU IH SCH ×2 (10:15→14:11)
--- NOTE | 2019-04-13 12:27 | DS ---
(1) COPD with exacerbation Problem: Acute (2) Hypoxia Problem: Acute (3) Generalized anxiety disorder Problem: Chronic (4) Major depressive disorder, recurrent, moderate Problem: Chronic (5) Seizure disorder Problem: Chronic (6) Chronic respiratory failure with hypoxia, on home O2 therapy Problem: Chronic (7) Tobacco abuse Problem: Chronic (8) Osteoarthritis Problem: Chronic Qualifiers: (9) Hyperlipidemia Problem: Chronic Qualifiers: (10) Essential hypertension Problem: Chronic Hospital Course: 58-year-old female with a past medical history of COPD on home oxygen, hypertension, hyperlipidemia, hypothyroidism, seizure disorder, tobacco abuse, osteoarthritis, liver cirrhosis, anxiety presents from home with complaints of shortness of breath. Symptoms began about a week ago and have been progressively worsening. She was brought to the emergency department. Her symptoms are associated with increased sputum production, and cough. In the emergency department she was found to have WBC count of 10.7, ABG 7.41, O2 sat 88, PO2 52.7, PCO2 31.7, bicarb 19.6, lactic acid of 2.9, chest x-ray showed chronic no acute cardiopulmonary disease, CT angios was performed that was negative for PE and showed granulomatous disease. She was placed on oxygen, started on ceftriaxone and methylprednisolone with improvement of her symptoms. She was admitted for COPD exacerbation. She received She was given several nebulizer treatments with duo nebs and continued on steroids. She was titrated down to 3 L of oxygen via nasal cannula. She developed anxiety and responded well to oral Xanax. She has improved and is stable to be discharged home today. She has been advised on the importance of stopping smoking. Haydee Lopez is homebound due to COPD, oxygen dependency. The need for residential is for monitoring of vitals, and medication administration. She would also benefit from a bath aide the need for home health. The need for home health skilled services is directly related to the time spent [id number] with her. Procedures Performed: none Results and Findings: Pending Mircobiology Results 04/12/19 04:45 Blood Blood Culture - Preliminary NO GROWTH 24 HOURS 04/12/19 04:15 Blood Blood Culture - Preliminary NO GROWTH 24 HOURS Lab Pending Results 04/12/19 04:15: WBC 10.7 H, RBC 4.45, Hgb 14.7, Hct 44.6, MCV 100.2 H, MCH 33.0 H, MCHC 33.0, RDW 13.3, Plt Count 295, MPV 9.4, Immature Gran % (Auto) 0.30, Immature Gran # (Auto) 0.03, Neutrophils % 71.3, Lymphocytes % 17.2 L, Monocytes % 8.3, Eosinophils % 2.0, Basophils % 0.9, Nucleated RBC % 0.0, Neutrophils # 7.6 H, Lymphocytes # 1.84, Monocytes # 0.9, Eosinophils # 0.2, Absolute Basophils 0.1 04/12/19 04:15: Sodium 138, Plasma Sodium 139, Potassium 3.8, Chloride 100, Carbon Dioxide 25.6, Anion Gap 16.2 H, BUN 7, Creatinine 0.83, Est GFR (Non-Af Amer) 75 D, BUN/Creatinine Ratio 8.4 L, Random Glucose 150 H, Calcium 9.0, Calcium Adj for Albumin 8.9, Total Bilirubin 0.9, AST 58 H, ALT 35, Alkaline Phosphatase 211 H, Troponin I Less than 0.017, B-Natriuretic Peptide 261 H, Total Protein 8.7 H, Albumin 3.7 04/12/19 04:15: D-Dimer 1.63 H 04/12/19 04:15: Lactic Acid, Venous 2.9 H* 04/12/19 04:15: Influenza Type A Ag Negative, Influenza Type B Ag Negative 04/12/19 04:30: pCO2 31.7 L, pO2 52.7 L, HCO3 19.6 L, Total CO2 20.5, Base Excess -4.1 L, ABG pH 7.41, ABG O2 Sat (Measured) 88.0 L 04/12/19 07:13: Lactic Acid, Venous 2.1 H 04/13/19 06:10: WBC 17.0 H D, RBC 4.47, Hgb 14.4, Hct 44.0, MCV 98.4, MCH 32.2 H, MCHC 32.7, RDW 13.2, Plt Count 276, MPV 10.8, Neutrophils % (Manual) 67, Band Neuts % (Manual) 3 H, Lymphocytes % (Manual) 15 L, Monocytes % (Manual) 11 H, Neutrophils # (Manual) 11.4 H, Lymphocytes # (Manual) 2.6, Monocytes # (Manual) 1.9 H, Atypic/Reactive Lymphs 4 H, Toxic Granulation 1+, Toxic Vacuolation Trace, Platelet Estimate Normal, RBC Morphology Normal 04/13/19 06:10: Sodium 134, Plasma Sodium 134, Potassium 3.8, Chloride 95 L, Carbon Dioxide 23.7 L, Anion Gap 19.1 H, BUN 15 D, Creatinine 0.95, Est GFR (Non-Af Amer) 64, BUN/Creatinine Ratio 15.8, Random Glucose 116 H, Calcium 8.9, Calcium Adj for Albumin 9.0, Total Bilirubin 0.4, AST 46, ALT 33, Alkaline Phosphatase 173 H, Total Protein 8.5 H, Albumin 3.5 Discharge Location: Home Disposition: Home Health Service Home Health Agency: [facility] Home Health Condition: Fair Face to Face Encounter completed per [facility] Guidelines: Yes Discharge Activity: Activity as tolerated Discharge Diet: General/regular food Referrals: Julianna Vázquez MD [Primary Care Provider] - Additional Patient Instructions (free text): [facility]-new at discharge- fax discharge summary, orders, and medications and call report. Prescriptions (Any new or edited meds): Baclofen 10 mg PO TID PRN #30 tab PRN Reason: muscle spasm Transmission Status: Sent to [place] Cefpodoxime Proxetil 200 mg PO BID #11 tab Transmission Status: Pending [place] predniSONE [Prednisone] 40 mg PO DAILY #6 tab Transmission Status: P[place] ALPRAZolam [Xanax] 0.25 mg PO TID PRN #40 tab PRN Reason: Anxiety Transmission Status: Sent to [place] Complete Home Medications List: Complete Home Medication List: Albuterol Sulfate/Ipratropium [Duoneb 2.5-0.5MG/3ML Soln] 3 ml INHALATION Q6H 12/28/17 formoterol fumarate 20 mcg/2 mL solution for nebulization 2 ml IH BID 03/05/18 fluticasone 250 mcg-salmeterol 50 mcg/dose blistr powdr for inhalation 1 inh IH BID #60 ea 10/13/18 gabapentin 300 mg capsule 300 mg PO TID PRN 01/20/19 levetiracetam 1,000 mg tablet 500 mg PO BID #30 tab 02/18/19 albuterol sulfate 90 mcg/actuation aerosol inhaler 2 puff IH Q4H PRN #8.5 g 02/23/19 lisinopril 10 mg tablet 10 mg PO DAILY #90 tab 03/04/19 folic acid 1 mg tablet 1 mg PO DAILY 30 Days #30 tab 03/08/19 naproxen 500 mg tablet,delayed release 500 mg PO BID PRN #60 tab 03/22/19 duloxetine 60 mg capsule,delayed release 60 mg PO DAILY #30 cap 03/29/19 trazodone 50 mg tablet 50 mg PO HS PRN #30 tab 03/29/19 Multivitamin [Multivitamins] 1 ea PO DAILY 04/12/19 ALPRAZolam [Xanax] 0.25 mg PO TID PRN #40 tab 04/13/19 Baclofen 10 mg PO TID PRN #30 tab 04/13/19 Cefpodoxime Proxetil 200 mg PO BID #11 tab 04/13/19 predniSONE [Prednisone] 40 mg PO DAILY #6 tab 04/13/19
[2019-04-13 14:05] VITALS: BP 157/86
== END 2019-04-13 14:40 | disposition home health service (06) ==
LOC: ER 03:55 → MS 06:24 → INTOOBSV 06:24 → MS 06:58
PROVIDERS: ADMIT Internal Medicine; ATTEND Internal Medicine
CPT/HCPCS: 36415; 36600; 71010; 71045; 71275; 80053; 82803; 83519; 83605; 83880; 84484; 85025; 85379; 87040; 87400; 87449; 93005; 94640; 94664; 94760; 96365; 96366; 96375; 99285; G0378; Q9967

== ENCOUNTER 2019-04-14 17:17 | Inpatient (IN) ==
[2019-04-14] MEDS ORDERED: ALBUTEROL SULFATE 2.5 MG/0.5 ML VIAL.NEB IH ONE (17:20)
[2019-04-14] MEDS ORDERED: MORPHINE SULFATE 2 MG/ML DISP.SYRIN IV ONE ×2 (17:22→18:26)
--- NOTE | 2019-04-14 17:35 | ERNOTE ---
Dyspnea - General Presenting Symptoms: shortness of breath Time Seen by Provider: 04/14/19 17:17 Source: patient Exam Limitations: clinical condition - Immun/Allergies/Home Medications Immunizations: IMMUNIZATION HX Immunizations Up to Date Yes History of Influenza Vaccine No Hx Pneumococcal Vaccination Yes Allergies/Adverse Reactions: Allergies phenobarbital Allergy (Intermediate, Verified 04/14/19 17:26) seizure grass pollen Allergy (Mild, Verified 04/14/19 17:26) unknown house dust Allergy (Mild, Verified 04/14/19 17:26) unknown mold Allergy (Unknown, Verified 04/14/19 17:26) unknown amoxicillin trihydrate [From Augmentin] Adverse Reaction (Mild, Verified 04/14/19 17:26) Vomiting egg Adverse Reaction (Mild, Verified 04/14/19 17:26) runny nose ibuprofen Adverse Reaction (Mild, Verified 04/14/19 17:26) Vomiting potassium clavulanate [From Augmentin] Adverse Reaction (Mild, Verified 04/14/19 17:26) Vomiting promethazine HCl [From Phenergan] Adverse Reaction (Mild, Verified 04/14/19 17:26) Vomiting Home Medications: HOME MEDICATIONS Albuterol Sulfate/Ipratropium [Duoneb 2.5-0.5MG/3ML Soln] 3 ml INHALATION Q6H 12/28/17 [Last Taken Unknown] formoterol fumarate 20 mcg/2 mL solution for nebulization 2 ml IH BID 03/05/18 [Last Taken Unknown] fluticasone 250 mcg-salmeterol 50 mcg/dose blistr powdr for inhalation 1 inh IH BID #60 ea 10/13/18 [Last Taken Unknown] gabapentin 300 mg capsule 300 mg PO TID PRN 01/20/19 [Last Taken Unknown] levetiracetam 1,000 mg tablet 500 mg PO BID #30 tab 02/18/19 [Last Taken Unknown] albuterol sulfate 90 mcg/actuation aerosol inhaler 2 puff IH Q4H PRN #8.5 g 10/05 [Last Taken Unknown] lisinopril 10 mg tablet 10 mg PO DAILY #90 tab 03/04/19 [Last Taken Unknown] folic acid 1 mg tablet 1 mg PO DAILY 30 Days #30 tab 03/08/19 [Last Taken Unknown] naproxen 500 mg tablet,delayed release 500 mg PO BID PRN #60 tab 02/04/20 [Last Taken Unknown] duloxetine 60 mg capsule,delayed release 60 mg PO DAILY #30 cap 03/29/19 [Last Taken Unknown] trazodone 50 mg tablet 50 mg PO HS PRN #30 tab 03/29/19 [Last Taken Unknown] Multivitamin [Multivitamins] 1 ea PO DAILY 04/12/19 [Last Taken Unknown] ALPRAZolam [Xanax] 0.25 mg PO TID PRN #40 tab 04/13/19 [Last Taken Unknown] Baclofen 10 mg PO TID PRN #30 tab 04/13/19 [Last Taken Unknown] Cefpodoxime Proxetil 200 mg PO BID #11 tab 04/13/19 [Last Taken Unknown] predniSONE [Prednisone] 40 mg PO DAILY #6 tab 04/13/19 [Last Taken Unknown] - History of Present Illness Narrative: Patient has a history of COPD and is on 2liters home O2. She was admitted to the hospital two days ago for COPD exacerbation, discharged yesterday on prednisone 40mg daily and oral cephalosporin. Today she called EMS as her breathing got worse again mainly this afternoon Patient is hollering and giving limited history, states that she quit smoking five days ago Per EMS the house has only a narrow path to walk in as it is full, there are fish tanks full of black liquid, they are still running She received two breathing treatments and solumedrol 125mg IV en route Treatment [employer]: by patient, paramedics Frequency of episodes: Reports: frequent episodes Modifying Factors - (Improves): Reports: albuterol Modifying Factors (Worsens): Reports: activity Associated Symptoms-Dyspnea: Reports: cough. Denies: chest pain/discomfort Prior Treatment: Reports: recently seen, currently on antibiotics Review of Systems - Narrative Narrative: limited by patient condition - Review of Systems Constitutional: Present: recent illness ENT: Absent: sore throat Respiratory: Present: shortness of breath, cough Cardiology: Absent: chest pain Gastrointestinal/Abdominal: Absent: nausea, abdominal pain Neurological: Present: anxiety Medical History (Last Reviewed 04/14/19 @ 17:35 by Myrna Del Real MD) Hypokalemia (Acute) Onset Date: Unknown Oxygen dependent (Chronic) Onset Date: Unknown Chronic respiratory failure with hypoxia, on home O2 therapy (Chronic) Onset Date: Unknown Tobacco abuse (Chronic) Onset Date: Unknown Osteoarthritis (Chronic) Onset Date: Unknown Macrocytosis without anemia (Chronic) Onset Date: 10/11/15 Hypothyroid (Chronic) Onset Date: 2013 Hyperlipidemia (Chronic) Onset Date: 04/04/16 Club foot (Chronic) Onset Date: Unknown Essential hypertension (Chronic) Onset Date: 10/11/15 Anxiety (Chronic) Onset Date: Unknown Seizure disorder (Chronic) Onset Date: Unknown COPD exacerbation (Chronic) Onset Date: Unknown Alcoholic cardiomyopathy (Chronic) Onset Date: Unknown Cirrhosis of liver (Chronic) Onset Date: Unknown Alcohol abuse (Chronic) Onset Date: 10/11/15 GERD (gastroesophageal reflux disease) (Chronic) Onset Date: Unknown Back pain (Chronic) Onset Date: Unknown Seizure (Chronic) Onset Date: 2013 COPD (chronic obstructive pulmonary disease) (Chronic) Onset Date: 10/12/16 Edema extremities Onset Date: Unknown Panic attacks Onset Date: Unknown Alcohol intoxication Onset Date: Unknown Concussion Onset Date: Unknown Pneumonia Onset Date: Unknown Rib pain Onset Date: Unknown UTI (urinary tract infection) Onset Date: Unknown Surgical History: Surgical History (Last Reviewed 04/14/19 @ 17:35 by Myrna Del Real MD) History of carpal tunnel release (Resolved) Onset Date: Unknown bilateral H/O section Onset Date: Unknown x 3 History of colon surgery Onset Date: 2002 sigmoid mesenteric cyst removed History of esophagogastroduodenoscopy Onset Date: 01/26/02 01/26/02 Dr Mckeon-extensive peptic ulcer disease w/antral gastritis and duodenitis. History of lower leg fracture Onset Date: 02/04/13 external fixator: right pilon fracture of leg; with [address] Wilson [facility] Status post cholecystectomy Onset Date: Unknown open ovarian surgery Onset Date: Unknown left ovary removed Family History: Family History (Last Reviewed 04/14/19 @ 17:26 by Marcella Sherman RN) Father , age 53-[place] Myocardial infarction Hypertension Mother , age 63-ovarian cancer Cancer ovarian cancer-age 60 Sister Arthritis 1 sister Alive and well 2 sisters Brother Heart disease had stent Social History: (Last Reviewed 04/14/19 @ 17:26 by Marcella Sherman RN) Social History: Marital status: lives independently: Yes household members: none number of children: 3 current occupational status: disabled Service: No Tobacco: Smoking Status: Current every day smoker Smoking cigarettes per day: 10 Alcohol: alcohol intake: current Alcohol type: beer alcohol intake frequency: holiday/special occasion Substance Use: substance use type: former substance user Dietary Habits: caffeine: Yes Type: carbonated beverages, tea high-fat food intake: 3 or more times/day Personal Safety: victim of physical abuse: No victim of emotional abuse: No Physical Exam - Physical Exam General Appearance: Present: wd/wn, alert, mild distress, anxious Head Exam: Present: normal inspection Eye Exam: Normal inspection: bilateral Ears, Nose, Throat: Present: dry mucous membranes Respiratory: Present: lungs clear, respiratory distress - increase rate and work of breathing, decreased breath sounds, expiration (prolonged) Cardiovascular/Chest: Present: tachycardia Gastrointestinal/Abdominal: Present: nontender, nondistended, soft Extremity Exam: Present: no edema Neurological Exam: Present: alert, oriented, normal mood/affect Skin Exam: Present: normal color, warm/dry Progress - Results and Orders Patient's Lab Results:: I have reviewed the patient's lab results. - Vital Signs Patient's Vital Signs:: I have reviewed the patient's vital signs. Vital Signs: Vital Signs 04/14/19 17:22 Temperature 36.4 C Pulse Rate 112 H Respiratory Rate 26 H Blood Pressure 195/107 H O2 Sat by Pulse Oximetry 86 L - EKG EKG #1 EKG: NSR EKG read: Interp. by me - X-Ray X-Ray #1 X-Ray: chest - hyperinflated, no infiltrate Interpretation: Interp. by me - Progress/Reassessment Chief Complaint: Dyspnea Progress Note-Subjective: 04/14/19 18:00 states that she feels a little better after albuterol and morphine 2mg IV 04/14/19 18:13 patient's CO2 on ABG significantly increased compared to a few days ago will start BiPAP 04/14/19 18:40 patient calmer, more alert and cooperative maintaining O2 sat >90% with 40% O2 04/14/19 19:23 ABG shows slight improvement in CO2 and pH discussed with jose Simmons to admit to the floor Departure Clinical Impression: COPD with exacerbation Respiratory failure Qualifiers: Chronicity: acute Respiratory failure complication: hypoxia and hypercapnia Qualified Code(s): J96.01 - Acute respiratory failure with hypoxia - Departure Disposition: Still a patient Condition: Stable
[2019-04-14 17:52] LABS: Hematocrit 43.3 % (37.0-47.0); Hemoglobin 14.3 gm/dL (12.5-16.0); Mean Cell Volume 99.8 fl (78-100); Mean Corpuscular Hemoglobin 32.9 pg (27-31); Mean Platelet Volume 10.2 fl (8-12.5); Neutrophil # 9.4 K/mm3 (1.3-6.0); Platelet Count 282 K/mm3 (150-450); Red Blood Count 4.34 M/mm3 (4.2-5.4); Red Cell Distribution Width 13.1 % (11.5-14.0)
[2019-04-14 18:20] LABS: ALT 50 U/L (19-67); AST 76 U/L (0-48); Albumin * 3.8 gm/dl (3.4-5.0); Alkaline Phosphatase * 162 U/L (50-170); Anion Gap 13.8 mmol/L (6.8-13.8); BNP * 2178 pg/mL (5-205); BUN/Creatinine Ratio 19.7 (9.0-21.6); Bilirubin, Total 0.5 mg/dL (0.0-1.1); Blood Urea Nitrogen 13 mg/dL (3-23); Calcium * 9.2 mg/dL (7.9-10.9); Carbon Dioxide 28.1 mmol/L (24-32.6); Chloride 92 mmol/L (97-106); Glucose * 183 mg/dL (70-110); Potassium 4.9 mmol/L (3.4-4.6); Sodium 129 mmol/L (132-142); Total Protein 8.4 gm/dL (6.2-8.2)
[2019-04-14] MEDS ORDERED: LORazepam 2 MG/ML DISP.SYRIN IV ONE (19:03)
[2019-04-14] MEDS ORDERED: ALBUTEROL SULFATE 2.5 MG/0.5 ML VIAL.NEB IH PRN (19:42)
[2019-04-14] MEDS: LORazepam 2 MG/ML DISP.SYRIN IV PRN (21:14)
--- NOTE | 2019-04-14 21:31 | HP ---
Chief Complaint - Chief Complaint Date of Service: 04/14/19 Time of Service: 21:30 Chief Complaint: dyspnea History of Present Illness: Pt with PMHx of COPD on prn O2, previous CO, anxiety, previous alcohol abuse, tobacco use, seizure disorder, heart failure, cirrhosis. She was DC'd from our facility yesterday, after an overnight stay for dyspnea. she improved with O2, methylprednisolone, and rocephin, and went home yesterday. She developed worsened shortness of breath today, and came back to the ED. In the ED, she was hypoxic, WBC barely elevated at 11.0. she had mild electrolyte abnormalities, with Na+ of 129 and K+ of 4.9. ABG showed hypercarbic respiratory failure. She was started on Bipap in the ED and admitted. Medical History (Last Reviewed 04/14/19 @ 21:02 by Wilma Carmona RN) Hypokalemia (Acute) Onset Date: Unknown Oxygen dependent (Chronic) Onset Date: Unknown Chronic respiratory failure with hypoxia, on home O2 therapy (Chronic) Onset Date: Unknown Tobacco abuse (Chronic) Onset Date: Unknown Osteoarthritis (Chronic) Onset Date: Unknown Macrocytosis without anemia (Chronic) Onset Date: 10/11/15 Hypothyroid (Chronic) Onset Date: 2013 Hyperlipidemia (Chronic) Onset Date: 04/04/16 Club foot (Chronic) Onset Date: Unknown Essential hypertension (Chronic) Onset Date: 10/11/15 Anxiety (Chronic) Onset Date: Unknown Seizure disorder (Chronic) Onset Date: Unknown COPD exacerbation (Chronic) Onset Date: Unknown Alcoholic cardiomyopathy (Chronic) Onset Date: Unknown Cirrhosis of liver (Chronic) Onset Date: Unknown Alcohol abuse (Chronic) Onset Date: 10/11/15 GERD (gastroesophageal reflux disease) (Chronic) Onset Date: Unknown Back pain (Chronic) Onset Date: Unknown Seizure (Chronic) Onset Date: 2013 COPD (chronic obstructive pulmonary disease) (Chronic) Onset Date: 10/12/16 Edema extremities Onset Date: Unknown Panic attacks Onset Date: Unknown Alcohol intoxication Onset Date: Unknown Concussion Onset Date: Unknown Pneumonia Onset Date: Unknown Rib pain Onset Date: Unknown UTI (urinary tract infection) Onset Date: Unknown Surgical History: Surgical History (Last Reviewed 04/14/19 @ 21:03 by Wilma Carmona RN) History of carpal tunnel release (Resolved) Onset Date: Unknown bilateral H/O section Onset Date: Unknown x 3 History of colon surgery Onset Date: 2002 sigmoid mesenteric cyst removed History of esophagogastroduodenoscopy Onset Date: 01/26/02 01/26/02 Dr Mckeon-extensive peptic ulcer disease w/antral gastritis and duodenitis. History of lower leg fracture Onset Date: 02/04/13 external fixator: right pilon fracture of leg; with [address] Wilson [facility] Status post cholecystectomy Onset Date: Unknown open ovarian surgery Onset Date: Unknown left ovary removed Family History: Family History (Last Reviewed 04/14/19 @ 21:03 by Wilma Carmona RN) Father , age 53-[place] Myocardial infarction Hypertension Mother , age 63-ovarian cancer Cancer ovarian cancer-age 60 Sister Arthritis 1 sister Alive and well 2 sisters Brother Heart disease had stent Social History: (Last Reviewed 04/14/19 @ 21:03 by Wilma Carmona RN) Social History: Marital status: lives independently: Yes household members: none number of children: 3 current occupational status: disabled Service: No Tobacco: Smoking Status: Current every day smoker Smoking cigarettes per day: 10 Alcohol: alcohol intake: current Alcohol type: beer alcohol intake frequency: holiday/special occasion Substance Use: substance use type: former substance user Dietary Habits: caffeine: Yes Type: carbonated beverages, tea high-fat food intake: 3 or more times/day Personal Safety: victim of physical abuse: No victim of emotional abuse: No Review Of Systems (GEN) - Review of Systems Generalized/Overall Review: Present: No Symptoms Reported - unable to obtain due to agitation Immunizations: IMMUNIZATION HX Immunizations Up to Date Yes History of Influenza Vaccine No Hx Pneumococcal Vaccination Yes Allergies/Adverse Reactions: Allergies Allergy/AdvReac Type Severity Reaction Status Date / Time phenobarbital Allergy Intermediate seizure Verified 04/14/19 17:26 grass pollen Allergy Mild unknown Verified 04/14/19 17:26 house dust Allergy Mild unknown Verified 04/14/19 17:26 mold Allergy Unknown unknown Verified 04/14/19 17:26 amoxicillin trihydrate AdvReac Mild Vomiting Verified 04/14/19 17:26 [From Augmentin] egg AdvReac Mild runny nose Verified 04/14/19 17:26 ibuprofen AdvReac Mild Vomiting Verified 04/14/19 17:26 potassium clavulanate AdvReac Mild Vomiting Verified 04/14/19 17:26 [From Augmentin] promethazine HCl AdvReac Mild Vomiting Verified 04/14/19 17:26 [From Phenergan] Home Medications: HOME MEDICATIONS Albuterol Sulfate/Ipratropium [Duoneb 2.5-0.5MG/3ML Soln] 3 ml INHALATION Q6H 12/28/17 [Last Taken Unknown] formoterol fumarate 20 mcg/2 mL solution for nebulization 2 ml IH BID 03/05/18 [Last Taken Unknown] fluticasone 250 mcg-salmeterol 50 mcg/dose blistr powdr for inhalation 1 inh IH BID #60 ea 10/13/18 [Last Taken Unknown] gabapentin 300 mg capsule 300 mg PO TID PRN 01/20/19 [Last Taken Unknown] levetiracetam 1,000 mg tablet 500 mg PO BID #30 tab 02/18/19 [Last Taken Unknown] albuterol sulfate 90 mcg/actuation aerosol inhaler 2 puff IH Q4H PRN #8.5 g 02/23/19 [Last Taken Unknown] lisinopril 10 mg tablet 10 mg PO DAILY #90 tab 03/04/19 [Last Taken Unknown] folic acid 1 mg tablet 1 mg PO DAILY 30 Days #30 tab 03/08/19 [Last Taken Unknown] naproxen 500 mg tablet,delayed release 500 mg PO BID PRN #60 tab 03/22/19 [Last Taken Unknown] duloxetine 60 mg capsule,delayed release 60 mg PO DAILY #30 cap 03/29/19 [Last Taken Unknown] trazodone 50 mg tablet 50 mg PO HS PRN #30 tab 03/29/19 [Last Taken Unknown] Multivitamin [Multivitamins] 1 ea PO DAILY 04/12/19 [Last Taken Unknown] ALPRAZolam [Xanax] 0.25 mg PO TID PRN #40 tab 04/13/19 [Last Taken Unknown] Baclofen 10 mg PO TID PRN #30 tab 04/13/19 [Last Taken Unknown] Cefpodoxime Proxetil 200 mg PO BID #11 tab 04/13/19 [Last Taken Unknown] predniSONE [Prednisone] 40 mg PO DAILY #6 tab 04/13/19 [Last Taken Unknown] Exam - Exam Vital Signs: Vital Signs - Last Taken Temp 36.6 C 04/14/19 20:10 Pulse 82 04/14/19 21:24 Resp 24 H 04/14/19 21:24 BP 130/47 04/14/19 20:10 Pulse Ox 89 L 04/14/19 21:24 Constitutional: Present: Moderate distress Respiratory: Present: decreased breath sounds, other - wearing bipap, 11/20. Absent: crackles Cardiovascular/Chest: Present: regular rate, rhythm Abdomen: Present: soft, nontender Extremity: Absent: lower extremity edema Neurologic: Present: other - agitated, thrashing in bed Diagnostic Studies: Abnormal Lab Results 04/14/19 04/14/19 04/14/19 Range/Units 17:20 17:50 17:50 WBC 11.0 H D (4.0-10.5) K/mm3 MCH 32.9 H (27-31) pg Immature Gran % (Auto) 0.50 H (0.001-0.429) % Immature Gran # (Auto) 0.06 H (0.000-0.0310) K/mm3 Neutrophils % 86.0 H (42-75.0) % Lymphocytes % 8.7 L (20-51) % Neutrophils # 9.4 H (1.3-6.0) K/mm3 Lymphocytes # 0.95 L (1.5-3.5) k/mm3 pCO2 69.5 H (32.0-45.0) mmHg pO2 (83.0-108.0) mmHg HCO3 (21.0-28.0) mmol/L Total CO2 30.1 H (19.0-24.0) mmol/L ABG pH 7.22 L (7.35-7.45) ABG O2 Sat (Measured) (94.0-98.0) % Sodium 129 L (132-142) mmol/L Potassium 4.9 H D (3.4-4.6) mmol/L Chloride 92 L (97-106) mmol/L Random Glucose 183 H D (70-110) mg/dL AST 76 H (0-48) U/L B-Natriuretic Peptide 2178 H (5-205) pg/mL Total Protein 8.4 H (6.2-8.2) gm/dL 04/14/19 04/14/19 Range/Units 19:15 21:19 WBC (4.0-10.5) K/mm3 MCH (27-31) pg Immature Gran % (Auto) (0.001-0.429) % Immature Gran # (Auto) (0.000-0.0310) K/mm3 Neutrophils % (42-75.0) % Lymphocytes % (20-51) % Neutrophils # (1.3-6.0) K/mm3 Lymphocytes # (1.5-3.5) k/mm3 pCO2 67.0 H 72.3 H* (32.0-45.0) mmHg pO2 75.6 L 68.9 L (83.0-108.0) mmHg HCO3 28.2 H 29.9 H (21.0-28.0) mmol/L Total CO2 30.3 H 32.2 H (19.0-24.0) mmol/L ABG pH 7.24 L 7.24 L (7.35-7.45) ABG O2 Sat (Measured) 92.4 L 89.9 L (94.0-98.0) % Sodium (132-142) mmol/L Potassium (3.4-4.6) mmol/L Chloride (97-106) mmol/L Random Glucose (70-110) mg/dL AST (0-48) U/L B-Natriuretic Peptide (5-205) pg/mL Total Protein (6.2-8.2) gm/dL Laboratory Results WBC 11.0 K/mm3 (4.0-10.5) H D 04/14/19 17:50 RBC 4.34 M/mm3 (4.2-5.4) 04/14/19 17:50 Hgb 14.3 gm/dL (12.5-16.0) 04/14/19 17:50 Hct 43.3 % (37.0-47.0) 04/14/19 17:50 MCV 99.8 fl (78-100) 04/14/19 17:50 MCH 32.9 pg (27-31) H 04/14/19 17:50 MCHC 33.0 g/dl (32-36) 04/14/19 17:50 RDW 13.1 % (11.5-14.0) 04/14/19 17:50 Plt Count 282 K/mm3 (150-450) 04/14/19 17:50 MPV 10.2 fl (8-12.5) 04/14/19 17:50 Immature Gran % (Auto) 0.50 % (0.001-0.429) H 04/14/19 17:50 Immature Gran # (Auto) 0.06 K/mm3 (0.000-0.0310) H 04/14/19 17:50 Neutrophils % 86.0 % (42-75.0) H 04/14/19 17:50 Lymphocytes % 8.7 % (20-51) L 04/14/19 17:50 Monocytes % 4.6 % (0.0-9) 04/14/19 17:50 Eosinophils % 0.0 % (0.0-3.0) 04/14/19 17:50 Basophils % 0.2 % (0.0-1.0) 04/14/19 17:50 Nucleated RBC % 0.0 k/mm3 (0-1) 04/14/19 17:50 Neutrophils # 9.4 K/mm3 (1.3-6.0) H 04/14/19 17:50 Lymphocytes # 0.95 k/mm3 (1.5-3.5) L 04/14/19 17:50 Monocytes # 0.5 k/mm3 (0.0-1.0) 04/14/19 17:50 Eosinophils # 0.0 k/mm3 (0.0-0.7) 04/14/19 17:50 Absolute Basophils 0.0 k/mm3 (0.0-0.1) 04/14/19 17:50 pCO2 72.3 mmHg (32.0-45.0) H* 04/14/19 21:19 pO2 68.9 mmHg (83.0-108.0) L 04/14/19 21:19 HCO3 29.9 mmol/L (21.0-28.0) H 04/14/19 21:19 Total CO2 32.2 mmol/L (19.0-24.0) H 04/14/19 21:19 Base Excess 0.5 mmol/L (-2.0-3.0) 04/14/19 21:19 ABG pH 7.24 (7.35-7.45) L 04/14/19 21:19 ABG O2 Sat (Measured) 89.9 % (94.0-98.0) L 04/14/19 21:19 Sodium 129 mmol/L (132-142) L 04/14/19 17:50 Plasma Sodium 130 mmol/L (130-142) 04/14/19 17:50 Potassium 4.9 mmol/L (3.4-4.6) H D 04/14/19 17:50 Chloride 92 mmol/L (97-106) L 04/14/19 17:50 Carbon Dioxide 28.1 mmol/L (24-32.6) 04/14/19 17:50 Anion Gap 13.8 mmol/L (6.8-13.8) 04/14/19 17:50 BUN 13 mg/dL (3-23) 04/14/19 17:50 Creatinine 0.66 mg/dL (0.4-1.4) 04/14/19 17:50 Est GFR (Non-Af Amer) 97 mL/min (60-130) D 04/14/19 17:50 BUN/Creatinine Ratio 19.7 (9.0-21.6) 04/14/19 17:50 Random Glucose 183 mg/dL (70-110) H D 04/14/19 17:50 Calcium 9.2 mg/dL (7.9-10.9) 04/14/19 17:50 Calcium Adj for Albumin 9.0 mg/dL (8.4-10.2) 04/14/19 17:50 Total Bilirubin 0.5 mg/dL (0.0-1.1) 04/14/19 17:50 AST 76 U/L (0-48) H 04/14/19 17:50 ALT 50 U/L (19-67) 04/14/19 17:50 Alkaline Phosphatase 162 U/L (50-170) 04/14/19 17:50 Ammonia 28.0 mcmol/L (11-35) 04/14/19 18:00 B-Natriuretic Peptide 2178 pg/mL (5-205) H 04/14/19 17:50 Total Protein 8.4 gm/dL (6.2-8.2) H 04/14/19 17:50 Albumin 3.8 gm/dl (3.4-5.0) 04/14/19 17:50 Ethyl Alcohol Less than 3.0 mg/dL (0.0-10.0) 04/14/19 17:50 Assessment/Plan - Assessment/Plan (1) Hypercapnic respiratory failure Assessment: She was worsening on previous Bipap settings, which were just adjusted. She was very agitated and calmed with 1 mg IV ativan. will give 60 mg solumedrol q6h, start doxycycline, and prn duoneb treatments. Can increase IPAP if hypercapnea persists. Per the ERP, she was told by EMS that the home was very unclean. There is a strong possibility there are respiratory irritants in the home that contributed to her presentation today. No signs of fluid overload on physical exam. Troponin pending. Problem: Acute Qualifiers: Chronicity: acute on chronic Qualified Code(s): J96.22 - Acute and chronic respiratory failure with hypercapnia (2) HTN (hypertension) Problem: Chronic Qualifiers: Hypertension type: essential hypertension Qualified Code(s): I10 - Essential (primary) hypertension (3) Anxiety Assessment: Will continue 1 mg ativan q2h prn overnight, to allow her to rest. Problem: Chronic (4) Cirrhosis of liver Assessment: admission ammonia level was not elevated at 28. Problem: Chronic (5) Seizure Assessment: Holding home meds currently while she is using the Bipap machine. Problem: Chronic (6) COPD (chronic obstructive pulmonary disease) Problem: Chronic
[2019-04-14] MEDS ORDERED: ALBUTEROL SULFATE/IPRATROPIUM 3 ML NEBU IH PRN (21:38)
[2019-04-14] MEDS: DOXYCYCLINE HYCLATE 100 MG in DEXTROSE 5 % IN WATER 100 ML IV SCH ×2 (22:51)
[2019-04-14] MEDS: NORMAL SALINE 1,000 ML IV PRN (22:51)
[2019-04-14] MEDS: METHYLPREDNISOLONE SOD SUCC/PF 40 MG/ML VIAL IV SCH (23:17)
[2019-04-15] MEDS: LORazepam 2 MG/ML DISP.SYRIN IV PRN ×3 (00:18→17:28)
[2019-04-15] MEDS: METHYLPREDNISOLONE SOD SUCC/PF 40 MG/ML VIAL IV SCH (05:40)
[2019-04-15] MEDS: NORMAL SALINE 1,000 ML IV PRN ×2 (08:19→18:19)
[2019-04-15] MEDS ORDERED: NAPROXEN 500 MG TABLET PO PRN (08:37)
[2019-04-15] MEDS ORDERED: BACLOFEN 10 MG TABLET PO PRN (08:37)
[2019-04-15] MEDS ORDERED: GABAPENTIN 300 MG CAPSULE PO PRN (08:37)
[2019-04-15] MEDS ORDERED: traZODone HCL 50 MG TABLET PO PRN (08:37)
--- NOTE | 2019-04-15 08:58 | PN ---
Subjective - Date and Time Seen Date: 04/15/19 Time: 08:25 Subjective Narrative: She continues to have some shortness of breath but is tolerating the BiPAP. She does not like the BiPAP because it feels in closing. She is feeling a little anxious at this time and would like a dose of Ativan. She did not require any Ativan for most of the night. She is concerned about getting her morning medications. Objective - Review of Systems Generalized/Overall Review: Denies: Fever Respiratory: Reports: Cough, Shortness of Breath Cardiac: Denies: Chest Pain Abdominal: Denies: Abdominal Pain Misc: All systems neg except as marked - Vitals Vitals: Last Vital Signs Temp 35.8 C L 04/15/19 06:29 Pulse 78 04/15/19 06:29 Resp 38 H 04/15/19 08:40 BP 129/77 04/15/19 06:29 Pulse Ox 100 04/15/19 08:40 - Abnormal Lab Findings Abnormal Lab Findings: Abnormal Lab Results 04/14/19 04/14/19 04/14/19 Range/Units 17:20 17:50 17:50 WBC 11.0 H D (4.0-10.5) K/mm3 MCH 32.9 H (27-31) pg Immature Gran % (Auto) 0.50 H (0.001-0.429) % Immature Gran # (Auto) 0.06 H (0.000-0.0310) K/mm3 Neutrophils % 86.0 H (42-75.0) % Lymphocytes % 8.7 L (20-51) % Neutrophils # 9.4 H (1.3-6.0) K/mm3 Lymphocytes # 0.95 L (1.5-3.5) k/mm3 pCO2 69.5 H (32.0-45.0) mmHg pO2 (83.0-108.0) mmHg HCO3 (21.0-28.0) mmol/L Total CO2 30.1 H (19.0-24.0) mmol/L ABG pH 7.22 L (7.35-7.45) ABG O2 Sat (Measured) (94.0-98.0) % Sodium 129 L (132-142) mmol/L Potassium 4.9 H D (3.4-4.6) mmol/L Chloride 92 L (97-106) mmol/L Random Glucose 183 H D (70-110) mg/dL AST 76 H (0-48) U/L Troponin I (0.00-0.10) ng/mL B-Natriuretic Peptide 2178 H (5-205) pg/mL Total Protein 8.4 H (6.2-8.2) gm/dL 04/14/19 04/14/19 04/14/19 Range/Units 19:15 20:00 21:19 WBC (4.0-10.5) K/mm3 MCH (27-31) pg Immature Gran % (Auto) (0.001-0.429) % Immature Gran # (Auto) (0.000-0.0310) K/mm3 Neutrophils % (42-75.0) % Lymphocytes % (20-51) % Neutrophils # (1.3-6.0) K/mm3 Lymphocytes # (1.5-3.5) k/mm3 pCO2 67.0 H 72.3 H* (32.0-45.0) mmHg pO2 75.6 L 68.9 L (83.0-108.0) mmHg HCO3 28.2 H 29.9 H (21.0-28.0) mmol/L Total CO2 30.3 H 32.2 H (19.0-24.0) mmol/L ABG pH 7.24 L 7.24 L (7.35-7.45) ABG O2 Sat (Measured) 92.4 L 89.9 L (94.0-98.0) % Sodium (132-142) mmol/L Potassium (3.4-4.6) mmol/L Chloride (97-106) mmol/L Random Glucose (70-110) mg/dL AST (0-48) U/L Troponin I 0.161 H* (0.00-0.10) ng/mL B-Natriuretic Peptide (5-205) pg/mL Total Protein (6.2-8.2) gm/dL 04/14/19 04/15/19 04/15/19 Range/Units 22:30 00:30 04:35 WBC (4.0-10.5) K/mm3 MCH (27-31) pg Immature Gran % (Auto) (0.001-0.429) % Immature Gran # (Auto) (0.000-0.0310) K/mm3 Neutrophils % (42-75.0) % Lymphocytes % (20-51) % Neutrophils # (1.3-6.0) K/mm3 Lymphocytes # (1.5-3.5) k/mm3 pCO2 60.7 H (32.0-45.0) mmHg pO2 (83.0-108.0) mmHg HCO3 (21.0-28.0) mmol/L Total CO2 28.6 H (19.0-24.0) mmol/L ABG pH 7.26 L (7.35-7.45) ABG O2 Sat (Measured) (94.0-98.0) % Sodium (132-142) mmol/L Potassium (3.4-4.6) mmol/L Chloride (97-106) mmol/L Random Glucose (70-110) mg/dL AST (0-48) U/L Troponin I 0.197 H* 0.138 H* (0.00-0.10) ng/mL B-Natriuretic Peptide (5-205) pg/mL Total Protein (6.2-8.2) gm/dL - Exam Constitutional: Present: Alert, Cooperative, Well developed, Well nourished, No distress, Middle aged ENT Exam: Present: hearing grossly normal Neck: Present: non-tender, supple, trachea midline. Absent: lymphadenopathy (R), lymphadenopathy (L) Respiratory: Present: no accessory muscle use, decreased breath sounds, wheezing - Expiratory wheezes throughout all lung hunt. Absent: crackles, rhonchi Cardiovascular/Chest: Present: normal peripheral pulses, regular rate, rhythm - Throughout all lung hunt, no edema, no murmur Abdomen: Present: Normal bowel sounds, soft, nontender Extremity: Present: no pedal edema Skin Exam: Present: normal color, warm/dry Neurologic: Present: alert, normal mood/affect Appearance: Present: appropriate appearance Eye contact: Present: cooperative Thoughts: Present: normal thought pattern, normal mood /affect Assessment/Plan Plan Narrative: 58-year-old female with a past medical history of anxiety, COPD on home oxygen at 2 L at all times, alcohol abuse, hypertension, GERD, seizure disorder, tobacco abuse, macrocytosis without anemia, hypothyroidism, hyperlipidemia presents from home with complaints of shortness of breath. She was recently in the hospital admitted with admitted for hypercapnic neck acute hypercapnic respiratory failure and started on BiPAP. She was on the BiPAP the entire night. She continues to have extensive wheezing throughout all lung hunt. I will repeat ABG, CBC and CMP this morning. She is not improving on the BiPAP as I would expect. She has been on BiPAP for more than 12 hours. ABG has not improved much and the patient is very anxious. She is not tolerating the BiPAP well and was very tachypneic with respirations in the 30s and 40s. Due to the potential for fatiguing I think she may benefit from intubation. I will consult [facility] for possible transfer to their facility for higher level of care Plan #1 check ABG now #2 continue with Solu-Medrol 60 mg every 6 hours standing #3 continue with doxycycline 100 mg twice daily, day 1 #4 due to her history of anxiety I will keep her on Ativan 1 mg IV every 2 hours as needed #5 resume home medications for comorbidities #6 Lovenox for DVT prophylaxis - Problems/Diagnosis (1) Hypercapnic respiratory failure Problem: Acute Qualifiers: Chronicity: acute on chronic Qualified Code(s): J96.22 - Acute and chronic respiratory failure with hypercapnia (2) Generalized anxiety disorder Problem: Chronic (3) Seizure disorder Problem: Chronic (4) Oxygen dependent Problem: Chronic (5) Tobacco abuse Problem: Chronic (6) Hyperlipidemia Problem: Chronic Qualifiers: (7) Essential hypertension Problem: Chronic (8) COPD (chronic obstructive pulmonary disease) Problem: Chronic
[2019-04-15] MEDS ORDERED: MULTIVITAMINS 1 CAP CAPSULE PO SCH (09:00)
[2019-04-15] MEDS ORDERED: ENOXAPARIN SODIUM 40 MG/0.4 ML SYRG SC SCH (09:00)
[2019-04-15] MEDS ORDERED: predniSONE 20 MG TABLET PO SCH (09:00)
[2019-04-15] MEDS ORDERED: DULoxetine HCL 30 MG CAPSULE.SA PO SCH (09:00)
[2019-04-15] MEDS ORDERED: LISINOPRIL 10 MG TABLET PO SCH (09:00)
[2019-04-15] MEDS ORDERED: levETIRAcetam 500 MG TABLET PO SCH (09:00)
[2019-04-15] MEDS ORDERED: FOLIC ACID 1 MG TABLET PO SCH (09:00)
[2019-04-15] MEDS ORDERED: FLU VACC QS2019-20(6MOS UP)/PF 60 MCG/0.5 ML SYRINGE IM ONE (09:00)
[2019-04-15 09:36] LABS: Hematocrit 39.4 % (37.0-47.0); Mean Cell Volume 99.7 fl (78-100); Mean Corpuscular Hemoglobin 32.9 pg (27-31); Mean Platelet Volume 9.1 fl (8-12.5); Neutrophil # 7.7 K/mm3 (1.3-6.0); Neutrophil % 85.5 % (42-75.0); Platelet Count 315 K/mm3 (150-450); Red Blood Count 3.95 M/mm3 (4.2-5.4); Red Cell Distribution Width 13.1 % (11.5-14.0)
[2019-04-15 09:44] LABS: Albumin * 3.2 gm/dl (3.4-5.0); Anion Gap 9.5 mmol/L (6.8-13.8); BUN/Creatinine Ratio 24.1 (9.0-21.6); Bilirubin, Total 0.5 mg/dL (0.0-1.1); Ca. Corrected For Albumin 8.9 mg/dL (8.4-10.2); Calcium * 8.6 mg/dL (7.9-10.9); Carbon Dioxide 30.1 mmol/L (24-32.6); Potassium 4.6 mmol/L (3.4-4.6); Total Protein 7.9 gm/dL (6.2-8.2)
[2019-04-15] MEDS: DOXYCYCLINE HYCLATE 100 MG in DEXTROSE 5 % IN WATER 100 ML IV SCH ×2 (10:27)
[2019-04-15] MEDS: METHYLPREDNISOLONE SOD SUCC/PF 125 MG/2 ML VIAL IV SCH ×2 (12:39→18:01)
--- NOTE | 2019-04-15 16:08 | DS ---
Transfer Discharge Summary - Diagnosis(s)/Problems (1) Hypercapnic respiratory failure Problem: Acute (2) Generalized anxiety disorder Problem: Chronic (3) Seizure disorder Problem: Chronic (4) Oxygen dependent Problem: Chronic (5) Tobacco abuse Problem: Chronic (6) Hyperlipidemia Problem: Chronic (7) Essential hypertension Problem: Chronic (8) COPD (chronic obstructive pulmonary disease) Problem: Chronic - Course Description of Stay: 58-year-old female with a past medical history of anxiety, COPD on home oxygen at 2 L at all times, alcohol abuse, hypertension, GERD, seizure disorder, tobacco abuse, macrocytosis without anemia, hypothyroidism, hyperlipidemia presents from home with complaints of shortness of breath. She was recently in the hospital admitted with admitted for hypercapnic neck acute hypercapnic respiratory failure and started on BiPAP. She was on the BiPAP the entire night. She continues to have diffuse expiratory wheezing throughout all lung hunt. She is not improving on the BiPAP as I would expect. She has been on BiPAP for more than 12 hours. ABG has not improved much and the patient is very anxious. Most recent ABG showed pH of 7.30, PCO2 59.1, PO2 74.6, bicarb 28.3, O2 sat 93.2. She is not tolerating the BiPAP well and was very tachypneic with respirations in the 30s and 40s. Due to the potential for muscle fatigue I think she may eventually need intubation. If intubated she will need a higher level of care. I have consulted with Dr. Kristen Latif at [facility] and she is willing to accept the patient. The patient will be sent to [facility] now on BiPAP. Procedures Performed: none - Results and Findings Results and Findings: Laboratory Results - last 24 hr 04/14/19 04/14/19 04/14/19 17:20 17:50 17:50 WBC 11.0 H D RBC 4.34 Hgb 14.3 Hct 43.3 MCV 99.8 MCH 32.9 H MCHC 33.0 RDW 13.1 Plt Count 282 MPV 10.2 Immature Gran % (Auto) 0.50 H Immature Gran # (Auto) 0.06 H Neutrophils % 86.0 H Lymphocytes % 8.7 L Monocytes % 4.6 Eosinophils % 0.0 Basophils % 0.2 Nucleated RBC % 0.0 Neutrophils # 9.4 H Lymphocytes # 0.95 L Monocytes # 0.5 Eosinophils # 0.0 Absolute Basophils 0.0 pCO2 69.5 H pO2 84.1 HCO3 27.9 Total CO2 30.1 H Base Excess -1.5 ABG pH 7.22 L ABG O2 Sat (Measured) 94.0 Sodium 129 L Plasma Sodium 130 Potassium 4.9 H D Chloride 92 L Carbon Dioxide 28.1 Anion Gap 13.8 BUN 13 Creatinine 0.66 Est GFR (Non-Af Amer) 97 D BUN/Creatinine Ratio 19.7 Random Glucose 183 H D Calcium 9.2 Calcium Adj for Albumin 9.0 Total Bilirubin 0.5 AST 76 H ALT 50 Alkaline Phosphatase 162 Ammonia Troponin I B-Natriuretic Peptide 2178 H Total Protein 8.4 H Albumin 3.8 Ethyl Alcohol Less than 3.0 04/14/19 04/14/19 04/14/19 18:00 19:15 20:00 WBC RBC Hgb Hct MCV MCH MCHC RDW Plt Count MPV Immature Gran % (Auto) Immature Gran # (Auto) Neutrophils % Lymphocytes % Monocytes % Eosinophils % Basophils % Nucleated RBC % Neutrophils # Lymphocytes # Monocytes # Eosinophils # Absolute Basophils pCO2 67.0 H pO2 75.6 L HCO3 28.2 H Total CO2 30.3 H Base Excess -0.7 ABG pH 7.24 L ABG O2 Sat (Measured) 92.4 L Sodium Plasma Sodium Potassium Chloride Carbon Dioxide Anion Gap BUN Creatinine Est GFR (Non-Af Amer) BUN/Creatinine Ratio Random Glucose Calcium Calcium Adj for Albumin Total Bilirubin AST ALT Alkaline Phosphatase Ammonia 28.0 Troponin I 0.161 H* B-Natriuretic Peptide Total Protein Albumin Ethyl Alcohol 04/14/19 04/14/19 04/15/19 21:19 22:30 00:30 WBC RBC Hgb Hct MCV MCH MCHC RDW Plt Count MPV Immature Gran % (Auto) Immature Gran # (Auto) Neutrophils % Lymphocytes % Monocytes % Eosinophils % Basophils % Nucleated RBC % Neutrophils # Lymphocytes # Monocytes # Eosinophils # Absolute Basophils pCO2 72.3 H* 60.7 H pO2 68.9 L 93.8 HCO3 29.9 H 26.7 Total CO2 32.2 H 28.6 H Base Excess 0.5 -1.5 ABG pH 7.24 L 7.26 L ABG O2 Sat (Measured) 89.9 L 95.9 Sodium Plasma Sodium Potassium Chloride Carbon Dioxide Anion Gap BUN Creatinine Est GFR (Non-Af Amer) BUN/Creatinine Ratio Random Glucose Calcium Calcium Adj for Albumin Total Bilirubin AST ALT Alkaline Phosphatase Ammonia Troponin I 0.197 H* B-Natriuretic Peptide Total Protein Albumin Ethyl Alcohol 04/15/19 04/15/19 04/15/19 04:35 09:19 09:29 WBC 9.0 RBC 3.95 L Hgb 13.0 Hct 39.4 MCV 99.7 MCH 32.9 H MCHC 33.0 RDW 13.1 Plt Count 315 MPV 9.1 Immature Gran % (Auto) 0.70 H Immature Gran # (Auto) 0.06 H Neutrophils % 85.5 H Lymphocytes % 9.2 L Monocytes % 4.5 Eosinophils % 0.0 Basophils % 0.1 Nucleated RBC % 0.0 Neutrophils # 7.7 H Lymphocytes # 0.83 L Monocytes # 0.4 Eosinophils # 0.0 Absolute Basophils 0.0 pCO2 59.1 H pO2 68.3 L HCO3 28.7 H Total CO2 30.5 H Base Excess 1.1 ABG pH 7.30 L ABG O2 Sat (Measured) 91.5 L Sodium Plasma Sodium Potassium Chloride Carbon Dioxide Anion Gap BUN Creatinine Est GFR (Non-Af Amer) BUN/Creatinine Ratio Random Glucose Calcium Calcium Adj for Albumin Total Bilirubin AST ALT Alkaline Phosphatase Ammonia Troponin I 0.138 H* B-Natriuretic Peptide Total Protein Albumin Ethyl Alcohol 04/15/19 04/15/19 09:29 13:13 WBC RBC Hgb Hct MCV MCH MCHC RDW Plt Count MPV Immature Gran % (Auto) Immature Gran # (Auto) Neutrophils % Lymphocytes % Monocytes % Eosinophils % Basophils % Nucleated RBC % Neutrophils # Lymphocytes # Monocytes # Eosinophils # Absolute Basophils pCO2 59.1 H pO2 74.6 L HCO3 28.3 H Total CO2 30.1 H Base Excess 0.6 ABG pH 7.30 L ABG O2 Sat (Measured) 93.2 L Sodium 130 L Plasma Sodium 130 Potassium 4.6 Chloride 95 L Carbon Dioxide 30.1 Anion Gap 9.5 BUN 27 H D Creatinine 1.12 Est GFR (Non-Af Amer) 53 L D BUN/Creatinine Ratio 24.1 H Random Glucose 125 H D Calcium 8.6 Calcium Adj for Albumin 8.9 Total Bilirubin 0.5 AST 68 H ALT 45 Alkaline Phosphatase 128 Ammonia Troponin I B-Natriuretic Peptide Total Protein 7.9 Albumin 3.2 L Ethyl Alcohol - Medications Medications: Active Medications Albuterol/Ipratropium (Duoneb 2.5-0.5mg/3ml Soln) 3 ml IH Q4HRT PRN PRN Reason: Shortness Of Breath/Wheezing Stop: 05/14/19 21:39 Last Admin: 04/14/19 22:45 Dose: 3 ml Documented by: Baclofen (Baclofen) 10 mg PO TID PRN PRN Reason: muscle spasm Stop: 05/15/19 08:38 Last Admin: 04/15/19 10:56 Dose: 10 mg Documented by: Duloxetine HCl (Cymbalta) 60 mg PO DAILY [facility] Stop: 05/15/19 09:01 Last Admin: 04/15/19 10:27 Dose: 60 mg Documented by: Enoxaparin Sodium (Lovenox) 40 mg SC Q24H [facility] Stop: 05/15/19 09:01 Last Admin: 04/15/19 10:26 Dose: 40 mg Documented by: Folic Acid (Folic Acid) 1 mg PO DAILY [facility] Stop: 05/15/19 09:01 Last Admin: 04/15/19 10:28 Dose: 1 mg Documented by: Gabapentin (Neurontin) 300 mg PO TID PRN PRN Reason: Nerves Stop: 05/15/19 08:38 Last Admin: 04/15/19 10:56 Dose: 300 mg Documented by: Sodium Chloride (Sodium Chloride 0.9%) 1,000 mls @ 125 mls/hr IV .Q8H PRN PRN Reason: HYDRATION Stop: 05/14/19 21:29 Last Admin: 04/15/19 08:19 Dose: 125 mls/hr Documented by: Doxycycline Hyclate 100 mg/ (Dextrose/Water) 100 mls @ 100 mls/hr IV Q12H [facility]; Protocol Stop: 05/14/19 23:01 Last Infusion: 04/15/19 11:27 Dose: Infused Documented by: Levetiracetam (Keppra) 500 mg PO BID [facility] Stop: 05/15/19 09:01 Last Admin: 04/15/19 10:28 Dose: 500 mg Documented by: Lisinopril (Zestril) 10 mg PO DAILY [facility] Stop: 05/15/19 09:01 Last Admin: 04/15/19 10:28 Dose: 10 mg Documented by: Lorazepam (Ativan) 1 mg IV Q2H PRN PRN Reason: anxiety Stop: 05/14/19 21:16 Last Admin: 04/15/19 10:28 Dose: 1 mg Documented by: Methylprednisolone Sodium Succinate (Solu-Medrol (Pf)) 62.5 mg IV Q6H [facility] Stop: 05/15/19 00:01 Last Admin: 04/15/19 12:39 Dose: 62.5 mg Documented by: Multivitamins/Folic Acid (Multivitamin Tanisha) 1 cap PO DAILY [facility] Stop: 05/15/19 09:01 Last Admin: 04/15/19 10:28 Dose: 1 cap Documented by: Naproxen (Naprosyn) 500 mg PO BID PRN PRN Reason: pain Stop: 05/11/19 08:38 Last Admin: 04/15/19 10:56 Dose: 500 mg Documented by: Discontinued Medications Albuterol Sulfate (Albuterol Sulfate 2.5 Mg/0.5ml) 2.5 mg IH ONCE ONE Stop: 04/14/19 17:21 Last Admin: 04/14/19 17:30 Dose: 2.5 mg Documented by: Influenza Virus Vaccine Quadrival (Flulaval Quad [id number] Syringe) 60 mcg IM .ONCE ONE Stop: 04/15/19 09:01 Last Admin: 04/15/19 08:29 Dose: 60 mcg Documented by: Lorazepam (Ativan) 1 mg IV ONCE ONE Stop: 04/14/19 19:04 Last Admin: 04/14/19 19:09 Dose: 1 mg Documented by: Methylprednisolone Sodium Succinate (Solu-Medrol) 60 mg IV Q6H [facility] Stop: 05/15/19 00:01 Last Admin: 04/15/19 05:40 Dose: 60 mg Documented by: Morphine Sulfate (Morphine Sulfate) 2 mg IV ONCE ONE Stop: 04/14/19 17:23 Last Admin: 04/14/19 17:31 Dose: 2 mg Documented by: Morphine Sulfate (Morphine Sulfate) 2 mg IV ONCE ONE Stop: 04/14/19 18:27 Last Admin: 04/14/19 18:29 Dose: 2 mg Documented by: - Disposition Disposition: Short Term Hospital Inpatient Condition: Serious
[2019-04-15 20:18] VITALS: BP 147/81
== END 2019-04-15 18:45 | disposition short-term general hospital (02) | DRG 189 ==
LOC: ER 17:17 → MS 19:32
PROVIDERS: ADMIT Family Medicine; ATTEND Internal Medicine
DX: Z99.81 Dependence on supplemental oxygen; F41.9 Anxiety disorder, unspecified; J96.02 Acute respiratory failure with hypercapnia; K74.60 Unspecified cirrhosis of liver; I10 Essential (primary) hypertension; F17.200 Nicotine dependence, unspecified, uncomplicated; J44.0 Chronic obstructive pulmonary disease with (acute) lower respiratory infection; G40.909 Epilepsy, unspecified, not intractable, without status epilepticus
CPT/HCPCS: 36415; 36600; 71010; 71045; 80053; 82140; 82803; 83519; 83880; 84484; 85025; 90686; 93005; 94640; 94664; 94760; 96374; 96375; 96376; 99285